=== PATIENT | male | born 1955 | race Caucasian/White ===

== ENCOUNTER 2019-02-02 10:52 | Inpatient (IN) | payer MEDICAID ==
[2019-02-02] VITALS (9 sets, daily range): BP systolic 145–162; BP diastolic 71–96; PULSE 54–65; RESP 14–18; Ht 182.9 cm; Wt 119.1 kg
[~2019-02-02] VITALS: Ht 182.9 cm; Wt 119.1 kg
[2019-02-02] MEDS ORDERED: LANT3I SC (12:35)
[2019-02-02] MEDS ORDERED: ASPI325T30 PO (12:35)
[2019-02-02] MEDS ORDERED: TAMS0.4C2 PO (12:35)
[2019-02-02] MEDS ORDERED: MTF1000T PO (12:35)
[2019-02-02] MEDS ORDERED: ATOR-2 PO (12:35)
[2019-02-02] MEDS ORDERED: GLIP10TA14 PO (12:35)
[2019-02-02] MEDS ORDERED: CARV6.2579 PO (12:35)
[2019-02-02] MEDS ORDERED: DULO60CA59 PO (12:35)
[2019-02-02] MEDS ORDERED: LISI40TA3 PO (12:35)
--- NOTE | 2019-02-02 13:05 | ERD ---
ER Documentation Chief Complaint Chief Complaint PRESSURE LIKE PAIN AT MID CHEST AREAS RADAITES TO THE BACK WITH SHARP PAIN HPI This is a 63-year-old male who presents for evaluation of chest pain. The patient has a history of hypertension hyperlipidemia he is a former tobacco user, he reports that he had a similar episode about 5 weeks ago. This occurred while lifting something, at that time the patient was told that he had a heart attack, involving the LAD. This was while he was in alf, at an outside hospital, is unclear how this was diagnosed. His discharge paperwork states STEMI involving LAD, however the patient reports that no procedures were performed, and he had recommended surgery versus a cardiac catheterization, but per the patient because he was in alf, he did not get admitted for these procedures. His chest pain improved, until today, he got out of alf a few days ago. He has not had a fever. ROS All systems reviewed and are negative except as per history of present illness. Medications Home Meds Reported Medications Insulin Glargine* (Lantus*) 100 Unit/Ml Soln, 12 UNIT SC QHS, #1 VIAL 02/02/19 Aspirin* (Aspirin*) 325 Mg Tablet, 325 MG PO DAILY, TAB 02/02/19 Duloxetine Hcl* (Duloxetine Hcl*) 60 Mg Capsule.dr, 60 MG PO DAILY, #30 CAP 02/02/19 Tamsulosin Hcl* (Tamsulosin Hcl*) 0.4 Mg Cap.er.24h, 0.4 MG PO HS, CAP 02/02/19 Atorvastatin* (Atorvastatin*) 80 Mg Tablet, 80 MG PO QHS, #30 TAB 02/02/19 Lisinopril* (Lisinopril*) 40 Mg Tablet, 40 MG PO DAILY, #30 TAB 02/02/19 Glipizide* (Glipizide*) 10 Mg Tablet, 10 MG PO DAILY, TAB 02/02/19 Carvedilol* (Carvedilol*) 6.25 Mg Tablet, 6.25 MG PO BID, #60 TAB 02/02/19 Metformin* (Glucophage*) 1,000 Mg Tablet, 1000 MG PO DAILY, #60 TAB 02/02/19 Allergies Allergies: Coded Allergies: codeine (Verified Allergy, Unknown, PANCREAS PAIN, 02/02/19) PMhx/Soc History of Surgery: Yes (GALLBLADDER SX,THROAT SX) Anesthesia Reaction: No Hx Neurological Disorder: No Hx Respiratory Disorders: No Hx Cardiac Disorders: Yes (HTN) Hx Psychiatric Problems: No Hx Miscellaneous Medical Probl: Yes (DM) Hx Alcohol Use: Yes Hx Substance Use: No Hx Tobacco Use: Yes Smoking Status: Former smoker Physical Exam Vitals Vital Signs Date Temp Pulse Resp B/P (MAP) Pulse Ox O2 O2 Flow FiO2 Time Delivery Rate 02/02/19 Nasal 2 11:39 Cannula 02/02/19 98.8 78 24 150/86 97 10:54 (107) Physical Exam Const: No acute distress Head: Atraumatic Eyes: Normal Conjunctiva ENT: Normal External Ears, Nose and Mouth. Neck: Full range of motion. No meningismus. Resp: Clear to auscultation bilaterally Cardio: Regular rate and rhythm, no murmurs Abd: Soft, non tender, non distended. Normal bowel sounds Skin: No petechiae or rashes Back: No midline or flank tenderness Ext: No cyanosis, or edema Neur: Awake and alert Psych: Normal Mood and Affect Result Diagram: 02/02/19 1137 02/02/19 1137 Results 24 hrs Laboratory Tests Test 02/02/19 11:37 White Blood Count 7.1 10^3/ul Red Blood Count 4.39 10^6/ul Hemoglobin 13.1 g/dl Hematocrit 38.9 % Mean Corpuscular Volume 88.6 fl Mean Corpuscular Hemoglobin 29.8 pg Mean Corpuscular Hemoglobin Concent 33.7 g/dl Red Cell Distribution Width 13.1 % Platelet Count 206 10^3/UL Mean Platelet Volume 9.1 fl Immature Granulocytes % 0.300 % Neutrophils % 43.9 % Lymphocytes % 39.2 % Monocytes % 11.8 % Eosinophils % 4.2 % Basophils % 0.6 % Nucleated Red Blood Cells % 0.0 /100WBC Immature Granulocytes # 0.020 10^3/ul Neutrophils # 3.1 10^3/ul Lymphocytes # 2.8 10^3/ul Monocytes # 0.8 10^3/ul Eosinophils # 0.3 10^3/ul Basophils # 0.0 10^3/ul Nucleated Red Blood Cells # 0.0 10^3/ul Sodium Level 142 mmol/L Potassium Level 4.0 mmol/L Chloride Level 104 mmol/L Carbon Dioxide Level 29 mmol/L Anion Gap 9 Blood Urea Nitrogen 22 mg/dl Creatinine 0.70 mg/dl Est Glomerular Filtrat Rate mL/min > 60 mL/min Glucose Level 109 mg/dl Calcium Level 9.6 mg/dl Total Bilirubin 0.3 mg/dl Direct Bilirubin 0.00 mg/dl Indirect Bilirubin 0.3 mg/dl Aspartate Amino Transf (AST/SGOT) 29 IU/L Alanine Aminotransferase (ALT/SGPT) 28 IU/L Alkaline Phosphatase 50 IU/L Troponin I < 0.012 ng/ml B-Type Natriuretic Peptide 218 PG/ML Total Protein 6.8 g/dl Albumin 3.9 g/dl Globulin 2.90 g/dl Albumin/Globulin Ratio 1.34 Current Medications Medications Dose Sig/Violet Start Time Status Last (Trade) Ordered Route PRN Stop Time Admin Dose Reason Admin Aspirin 325 mg ONCE ONCE 02/02/19 DC 02/02/19 (Aspirin) PO 13:30 13:31 02/02/19 13:31 Procedures/MDM This is a 63-year-old male who presents with chest pain. His history as noted above, is concerning for a prior NE, currently his pain is stable, and his EKG shows no evidence of acute ischemia. His chest x-ray was unremarkable, his first troponin was negative, and his labs are overall unremarkable, showing no leukocytosis, and no evidence of metabolic acidosis. Given his high risk, he will be admitted to medicine, for further evaluation under observation. Accepting Care Team: Current data and ongoing care discussed. Primary: Wilber Consulting: None Outstanding Data: none EKG: Rate/Rhythm: Normal Sinus Rhythm QRS, ST, T-waves: Q waves inferiorly. No changes consistent w/ acute ischemia Impression: No evidence of ischemia or arrhythmia Departure Diagnosis: Primary Impression: Chest pain Chest pain type: unspecified Qualified Codes: R07.9 - Chest pain, unspecified Condition: Stable VIKAS NIELSEN MD Feb 02, 2019 13:05
[2019-02-02] MEDS ORDERED: ASPIRIN 325 MG TAB PO ONE (13:30)
[2019-02-02] MEDS ORDERED: HYDROCODONE/APAP (5/325) TAB PO ONE (15:00)
--- NOTE | 2019-02-02 17:11 | RADRPT ---
Echocardiogram Report Patient Name: RANJANA NIETOPatient ID: [id number] : 1955 (63y 7m)Study Date: 02/02/2019 3:16:54 PM Gender: MAccession #: [id number] Tech: Floyd Sheehan BEATRIZ Location: [facility] Ref.Physician: JD LOZADA Height(Cm): BSA: Weight(Kg): Quality: AdequateAccount #: Procedures: Echocardiographic Report: Transthoracic echocardiogram with complete 2D, M-Mode, and doppler examination. Indications: STEMI. Measurements: 2D/M Mode Doppler Measurement Value Normal Range Measurement Value Normal Range LVIDd 2D 3.5 [ 4.2 - 5.8 ] cm AV Peak Spike 1.4 [ 100.0 - 170.0 ] cm/sec LVIDs 2D 2.8 [ 2.5 - 4.0 ] cm AV Peak PG 8.0 [ 2.0 - 9.0 ] mmHg LVPWd 2D 1.4 [ 0.6 - 1.0 ] cm LVOT Peak Spike 1.0 [ 70.0 - 110.0 ] cm/sec IVSd 2D 1.4 [ 0.6 - 1.0 ] cm LVOT Peak PG 4.0 [ 2.0 - 6.0 ] mmHg AoR Diam 2D 3.2 [ 2.6 - 3.4 ] cm MV E Peak Spike 0.9 [ 60.0 - 130.0 ] cm/sec EDV 2D 51.9 [ 62.0 - 150.0 ] ml MV A Peak Spike 0.7 [ 100.0 - 120.0 ] cm/sec ESV 2D 28.3 [ 21.0 - 61.0 ] ml MV E/A 1.2 [ 0.8 - 1.5 ] ratio EF 2D 45.5 [ 52.0 - 72.0 ] percent MV Decel Time 264 [ 104 - 258 ] msec LA Dimen 2D 3.5 [ 3.0 - 4.0 ] cm Lat E` Spike 0.1 [ 10.0 - 15.0 ] cm/sec LVOT Diam 2.5 [ 2.3 - 2.9 ] cm Lateral E/E` 10.4 [ 1.0 - 2.0 ] ratio MV E/A 1.2 [ 0.8 - 1.5 ] ratio TR Peak Spike 2.0 [ 100.0 - 280.0 ] cm/sec TR Peak PG 16.0 mmHg RVSP 19.0 [ 10.0 - 36.0 ] mmHg RA Pressure 3.0 mmHg Findings: Left Ventricle: Normal left ventricular systolic function. Normal left ventricular cavity size. Mild concentric left ventricular hypertrophy. Ejection fraction is visually estimated at 55-60 %. Tissue Doppler/Mitral Doppler indices are consistent with pseudonormalization with mildly elevated left atrial pressure (Stage II diastolic dysfunction). Right Ventricle: Normal right ventricular size. Normal right ventricular systolic function. Left Atrium: The left atrium is normal in size. Right Atrium: The right atrium is normal in size. Mitral Valve: Normal appearance and function of the mitral valve with trace physiologic regurgitation. Aortic Valve: No significant aortic stenosis or insufficiency. Aortic cusps appear mildly calcified. Tricuspid Valve: Normal appearance of the tricuspid valve. Estimated peak PA systolic pressure 19 mmHg. There is trace tricuspid regurgitation. Pulmonic Valve: Normal pulmonic valve appearance. Pericardium: Normal pericardium with no significant pericardial effusion. Aorta: Normal aortic root. IVC: Normal size and normal respiratory collapse consistent with normal right atrial pressure. Conclusions: Normal left ventricular systolic function. Normal left ventricular cavity size. Mild concentric left ventricular hypertrophy. Ejection fraction is visually estimated at 55-60 %. Tissue Doppler/Mitral Doppler indices are consistent with pseudonormalization with mildly elevated left atrial pressure (Stage II diastolic dysfunction). Normal right ventricular size. Normal right ventricular systolic function. The left atrium is normal in size. The right atrium is normal in size. No significant valvular stenosis or regurgitation seen. Normal pericardium with no significant pericardial effusion. Electronically Signed By: Jd Lozada 2019-02-02 17:11:13 PDT
--- NOTE | 2019-02-02 17:19 | CONS ---
Assessment/Plan Assessment/Plan Hospital Course (Demo Recall) Chest pain CAD based on history Diabetes Hypertension Dyslipidemia Preserved ejection fraction -Patient with exertional chest pain for the past month. He was recently incarcerated and was admitted to the hospital and told me imaging that he had an occlusion in his LAD. He was recommended for outpatient angiogram -Serial cardiac enzymes negative, echocardiogram with preserved ejection frac tion -Will plan for coronary angiogram Consultation Date/Type/Reason Admit Date/Time Type of Consult Cardiology Reason for Consultation Chest pain Date/Time of Note DATE: 02/02/19 TIME: 17:13 Hx of Present Illness This is a 63-year-old male with past medical history of hypertension, diabetes who presents because of exertional chest pain. Symptoms are worse with exertion associate with shortness of breath and improved at rest. Denies any dizziness or lightheadedness. Patient was recently incarcerated and at that time was having exertional chest pain. He tells me he did go to a hospital and did have a workup including CT scan as well as stress test. He was told there was an occlusion in 1 of his heart arteries and recommendations were when he is discharged for angiogram. 12 point review of systems was performed with all pertinent positives and negatives mentioned above and all else is negative Past Medical History Medical History: diabetes, high cholesterol, hypertension Home Meds Reported Medications Insulin Glargine* (Lantus*) 100 Unit/Ml Soln, 12 UNIT SC QHS, #1 VIAL 02/02/19 Aspirin* (Aspirin*) 325 Mg Tablet, 325 MG PO DAILY, TAB 02/02/19 Duloxetine Hcl* (Duloxetine Hcl*) 60 Mg Capsule.dr, 60 MG PO DAILY, #30 CAP 02/02/19 Tamsulosin Hcl* (Tamsulosin Hcl*) 0.4 Mg Cap.er.24h, 0.4 MG PO HS, CAP 02/02/19 Atorvastatin* (Atorvastatin*) 80 Mg Tablet, 80 MG PO QHS, #30 TAB 02/02/19 Lisinopril* (Lisinopril*) 40 Mg Tablet, 40 MG PO DAILY, #30 TAB 02/02/19 Glipizide* (Glipizide*) 10 Mg Tablet, 10 MG PO DAILY, TAB 02/02/19 Carvedilol* (Carvedilol*) 6.25 Mg Tablet, 6.25 MG PO BID, #60 TAB 02/02/19 Metformin* (Glucophage*) 1,000 Mg Tablet, 1000 MG PO DAILY, #60 TAB 02/02/19 Allergies: Coded Allergies: codeine (Verified Allergy, Unknown, PANCREAS PAIN, 02/02/19) Family History Significant Family History: no pertinent family hx Social History Alcohol Use: rarely Smoking Status: Former smoker Exam/Review of Systems Vital Signs Vitals Vital Signs Date Temp Pulse Resp B/P (MAP) Pulse Ox O2 O2 Flow FiO2 Time Delivery Rate 02/02/19 97.6 54 18 145/76 Room Air 15:40 (99) 02/02/19 98 2.0 14:29 Exam Constitutional: alert, oriented (No apparent distress) Head: normocephalic Respiratory: clear to auscultation, normal air movement Cardiovascular: regular rate and rhythm (S1-S2 heard) Gastrointestinal: soft, non-tender, bowel sounds Extremities: other (No significant edema) Labs Result Diagram: 02/02/19 1137 02/02/19 1137 Results 24hrs Laboratory Tests Test 02/02/19 11:37 02/02/19 13:43 White Blood Count 7.1 Red Blood Count 4.39 L Hemoglobin 13.1 L Hematocrit 38.9 L Mean Corpuscular Volume 88.6 Mean Corpuscular Hemoglobin 29.8 Mean Corpuscular Hemoglobin Concent 33.7 Red Cell Distribution Width 13.1 Platelet Count 206 Mean Platelet Volume 9.1 Immature Granulocytes % 0.300 Neutrophils % 43.9 Lymphocytes % 39.2 Monocytes % 11.8 H Eosinophils % 4.2 Basophils % 0.6 Nucleated Red Blood Cells % 0.0 Immature Granulocytes # 0.020 Neutrophils # 3.1 Lymphocytes # 2.8 Monocytes # 0.8 Eosinophils # 0.3 Basophils # 0.0 Nucleated Red Blood Cells # 0.0 Sodium Level 142 Potassium Level 4.0 Chloride Level 104 Carbon Dioxide Level 29 Anion Gap 9 Blood Urea Nitrogen 22 H Creatinine 0.70 Est Glomerular Filtrat Rate mL/min > 60 Glucose Level 109 Calcium Level 9.6 Total Bilirubin 0.3 Direct Bilirubin 0.00 Indirect Bilirubin 0.3 Aspartate Amino Transf (AST/SGOT) 29 Alanine Aminotransferase (ALT/SGPT) 28 Alkaline Phosphatase 50 Troponin I < 0.012 < 0.012 B-Type Natriuretic Peptide 218 H Total Protein 6.8 Albumin 3.9 Globulin 2.90 Albumin/Globulin Ratio 1.34 Imaging Imaging ECG with sinus rhythm, right bundle branch block with QRS 146 ms, nonspecific ST abnormalities Jd Santos DO Feb 02, 2019 17:19
[2019-02-02] MEDS ORDERED: LIDOCAINE 1% (MDV) 20 ML INJ ONE (17:44)
[2019-02-02] MEDS ORDERED: IODIXANOL LOCM 100 ML BTL ONE (17:44)
[2019-02-02] MEDS ORDERED: HEPARIN 1000 UNITS/ML 10 ML INJ ONE (17:44)
[2019-02-02] MEDS ORDERED: MIDAZOLAM 1 MG/ML 2 ML INJ ONE (17:45)
[2019-02-02] MEDS ORDERED: NITROGLYCERIN (IC) 100 MCG/ML INJ ONE (17:45)
[2019-02-02] MEDS ORDERED: FENTAnyl 50 MCG/ML VIAL ONE (17:45)
[2019-02-02] MEDS ORDERED: VERAPAMIL 5 MG INJ ONE (17:45)
--- NOTE | 2019-02-02 17:46 | HP ---
Date/Time of Note Date/Time of Note DATE: 02/02/19 TIME: 17:45 Assessment/Plan VTE Prophylaxis Pharmacological prophylaxis: heparin Lines/Catheters IV [facility] Saline Lock Assessment/Plan Hospital Course 63 yo M admitted and managed as follows : Chest pain CAD based on history Diabetes Hypertension Dyslipidemia Plan: Appreciate cardiology's prompt review, patient is to get angiogram In the interim, complete ACS rule out, follow-up 2D echo, use only insulin while in-house, once cleared for diet start 1800-calorie diet Provided orders supportive care, see chart for details, further interventions per course. Result Diagram: 02/02/19 1137 02/02/19 1137 Results 24hrs Laboratory Tests Test 02/02/19 11:37 02/02/19 13:43 White Blood Count 7.1 Red Blood Count 4.39 L Hemoglobin 13.1 L Hematocrit 38.9 L Mean Corpuscular Volume 88.6 Mean Corpuscular Hemoglobin 29.8 Mean Corpuscular Hemoglobin Concent 33.7 Red Cell Distribution Width 13.1 Platelet Count 206 Mean Platelet Volume 9.1 Immature Granulocytes % 0.300 Neutrophils % 43.9 Lymphocytes % 39.2 Monocytes % 11.8 H Eosinophils % 4.2 Basophils % 0.6 Nucleated Red Blood Cells % 0.0 Immature Granulocytes # 0.020 Neutrophils # 3.1 Lymphocytes # 2.8 Monocytes # 0.8 Eosinophils # 0.3 Basophils # 0.0 Nucleated Red Blood Cells # 0.0 Sodium Level 142 Potassium Level 4.0 Chloride Level 104 Carbon Dioxide Level 29 Anion Gap 9 Blood Urea Nitrogen 22 H Creatinine 0.70 Est Glomerular Filtrat Rate mL/min > 60 Glucose Level 109 Calcium Level 9.6 Total Bilirubin 0.3 Direct Bilirubin 0.00 Indirect Bilirubin 0.3 Aspartate Amino Transf (AST/SGOT) 29 Alanine Aminotransferase (ALT/SGPT) 28 Alkaline Phosphatase 50 Troponin I < 0.012 < 0.012 B-Type Natriuretic Peptide 218 H Total Protein 6.8 Albumin 3.9 Globulin 2.90 Albumin/Globulin Ratio 1.34 HPI/ROS Admit Date/Time Admit Date/Time Hx of Present Illness 63-year-old male who presented to the emergency room with chest pain with a past medical history of coronary artery disease and has been told in the past that he needs an angiogram while incarcerated. But this was never done. He does have discharge paperwork confirming ST elevation myocardial infarction with LAD. This onset of chest pain has been on and off for the last 5 days and was as sociated with exertion. He has been seen by the client technical specialist who is planning him for coronary angiogram. Is being admitted based on this. Past medical history: Hypertension, diabetes type 2, dyslipidemia, coronary artery disease, urinary obstructive symptoms, depression Surgical history: Gallbladder surgery, throat surgery Allergy codeine Social history: tobacco use, occasional alcohol drinker, denies illicit drug use, uses marijuana occasionally ROS 12 point review if systems was done and pertinent findings are as noted. PMH/Family/Social Past Medical History Medications Current Medications Aspirin (Aspirin) 81 mg DAILY PO ; Start 02/03/19 at 09:00; Status UNV Atorvastatin Calcium (Lipitor) 40 mg HS PO ; Start 02/02/19 at 21:00; Status UNV Insulin Aspart (Novolog Insulin Pen) NOVOLOG *MILD* ALGORITHM WITH MEALS BEDTIME SC ; Start 02/02/19 at 18:00; Status UNV Miscellaneous Information (* Miscellaneous Pharmacy Order) Discontinue all previ... ONCE ONCE XX ; Start 02/02/19 at 17:30; Stop 02/02/19 at 17:31; Status UNV Coded Allergies: codeine (Unverified Allergy, Intermediate, 02/08/19) Family History Significant Family History: no pertinent family hx Social History Alcohol Use: rarely Smoking Status: Former smoker Exam/Review of Systems Vital Signs Vitals Vital Signs Date Temp Pulse Resp B/P (MAP) Pulse Ox O2 O2 Flow FiO2 Time Delivery Rate 02/02/19 97.6 54 18 145/76 Room Air 15:40 (99) 02/02/19 98 2.0 14:29 Exam Exam General: A&O x3, answering questions appropriately HEENT: NC/ AT. PERRL. EOM intact Neck: supple CVS: S1, S2, RRR. no murmurs. no pain on chest wall palpation Lungs: CTA b/l. no wheezing or rhonchi Abd: soft, nontender, +BS Ext: moving all extremities skin: no rashes DOMITILA KIRBY Feb 02, 2019 17:46
[2019-02-02] MEDS ORDERED: SOD CHLORIDE 0.9% 1,000 ML IV SCH (18:33)
--- NOTE | 2019-02-02 18:42 | OPR ---
Date/Time of Note Date/Time of Note DATE: 02/02/19 TIME: 18:35 Operative Report Procedure Date: Feb 02, 2019 Preoperative Diagnosis Chest pain Postoperative Diagnosis Obstructive coronary artery disease Operation/Procedure Performed Left heart catheterization Right and left coronary angiogram Interpretation and supervision of right and left coronary angiogram Left ventricular pressure measurements Conscious sedation Right radial artery approach Surgeon see signature line Dry Starch Operator Miscellaneous Machine Operator staff Anesthesia Type: MAC Estimated Blood Loss: minimal Transfusion none Specimen None Grafts/Implants none Complications none Pt Condition Post Procedure: stable Procedure Description Findings Hemodynamics LV pressure 160/1 with EDP of 20 Aortic pressure 156/75 Coronary findings Left main is a large caliber vessel with no significant disease LAD is a medium caliber vessel with a proximal to mid calcified long 80% stenosis including the second diagonal which is a medium caliber, then there is a mid to distal 80% focal stenosis in the LAD Circumflex is a medium caliber vessel and codominant, there is a mid 30% stenosis, OM1 is a small to medium caliber vessel with a proximal to mid 80% stenosis, OM 2 which is a medium caliber vessel with a proximal 70% stenosis. RCA is a medium caliber vessel and codominant, there is a proximal 40% stenosis, a mid 50% stenosis, then proximal to mid PDA, which is a medium caliber vessel, with 80% diffuse stenosis. PLB is a small to medium caliber vessel with proximal 70% stenosis and mid 80% stenosis Description of procedure Patient brought to the Miscellaneous Machine Operator after informed consent. Patient prepped and draped as per protocol. Right radial artery access was obtained. A 5/6 Green[place]ic sheath was placed. A 5 Green[place]ic [place] catheter was used to engage the left main and RCA and angiograms were performed. We next went into the left ventricle and pressure measurements were obtained as well as pullback. All catheters and wires removed. There was no immediate complications. Recommendations/conclusion Patient with severe triple-vessel coronary artery disease, will need CABG evaluation Jd Santos DO Feb 02, 2019 18:42
[2019-02-02] MEDS: INSULIN ASPART [NOVOLOG] 3 ML PEN SC SCH ×2 (19:19→21:43)
[2019-02-02] MEDS ORDERED: GLUCAGON 1 MG INJ IM PRN (19:30)
[2019-02-02] MEDS ORDERED: DEXTROSE 50% 50 ML SYRINGE IV PRN ×2 (19:30)
[2019-02-02] MEDS ORDERED: GLUCOSE GEL 15 GRAM TUBE PO PRN ×2 (19:30)
[2019-02-02] MEDS ORDERED: GLUCOSE GEL 15 GRAM TUBE BUCCAL PRN (19:30)
[2019-02-02] MEDS: ISOSORBIDE DINITRATE 5 MG TAB PO SCH (21:00)
[2019-02-02] MEDS: ATORVASTATIN 80 MG TAB PO SCH (21:00)
[2019-02-02] MEDS: METOPROLOL 25 MG TAB PO SCH (21:00)
[2019-02-02] MEDS: TAMSULOSIN (SR) 0.4 MG CAP PO SCH (21:00)
[2019-02-02] MEDS ORDERED: ATORVASTATIN 40 MG TAB PO SCH (21:00)
[2019-02-02] MEDS: INSULIN GLARGINE [LANTus] (100 UNITS/ML) SYG SC SCH (21:43)
[2019-02-03] VITALS (11 sets, daily range): BP systolic 152–168; BP diastolic 72–81; PULSE 47–75; RESP 16–18
[2019-02-03] MEDS: NITROGLYCERIN (SL) 0.4 MG TAB SL PRN ×4 (04:28→07:45)
[2019-02-03] MEDS: morphine 2 MG INJ IV PRN ×2 (05:01→07:51)
[2019-02-03] MEDS: INSULIN ASPART [NOVOLOG] 3 ML PEN SC SCH ×4 (07:53→20:52)
[2019-02-03] MEDS ORDERED: NITROGLYCERIN 50 MG/D5W (PMX) 250 ML IV SCH (08:00)
[2019-02-03] MEDS ORDERED: KETOROLAC 15 MG INJ IV STA (08:21)
[2019-02-03] MEDS: DULOXETINE 30 MG CAP DR PO SCH (09:17)
[2019-02-03] MEDS: ISOSORBIDE DINITRATE 5 MG TAB PO SCH ×3 (09:17→20:55)
[2019-02-03] MEDS: ASPIRIN 81 MG TAB PO SCH (09:18)
[2019-02-03] MEDS: METOPROLOL 25 MG TAB PO SCH (12:10)
--- NOTE | 2019-02-03 14:58 | PN ---
Date/Time of Note Date/Time of Note DATE: 02/03/19 TIME: 14:48 Assessment/Plan VTE Prophylaxis Risk score (from Nsg)>0 risk: 3 SCD applied (from Ns): Yes Pharmacological prophylaxis: heparin Lines/Catheters IV Catheter Type (from Nrsg): [place] Assessment/Plan Assessment/Plan 1. CAD, 3v disease, s/p LHC on 02/03/2019, on aspirin, lipitor, coreg, imdur, planned for CABG for Thursday 2. Diabetes mellitus, on insulin, hold metformin 3. Hypertension, add lisinopril, continue coreg, stop metoprolol 4. Dyslipidemia, on lipitor 5. BPH, on flomax Result Diagram: 02/03/19 0756 02/03/19 0756 Results 24hrs Laboratory Tests Test 02/02/19 19:08 02/02/19 21:37 02/03/19 04:27 02/03/19 07:53 Bedside Glucose 93 187 144 131 Test 02/03/19 07:56 02/03/19 08:50 02/03/19 11:58 02/03/19 12:10 White Blood Count 7.0 Red Blood Count 3.99 L Hemoglobin 12.0 L Hematocrit 35.4 L Mean Corpuscular 88.7 Volume Mean Corpuscular 30.1 Hemoglobin Mean Corpuscular 33.9 Hemoglobin Concent Red Cell 13.2 Distribution Width Platelet Count 189 Mean Platelet Volume 9.5 Immature 0.100 Granulocytes % Neutrophils % 54.7 Lymphocytes % 33.7 Monocytes % 8.0 Eosinophils % 3.1 Basophils % 0.4 Nucleated Red Blood 0.0 Cells % Immature 0.010 Granulocytes # Neutrophils # 3.8 Lymphocytes # 2.4 Monocytes # 0.6 Eosinophils # 0.2 Basophils # 0.0 Nucleated Red Blood 0.0 Cells # Sodium Level 139 Potassium Level 3.9 Chloride Level 107 Carbon Dioxide Level 27 Anion Gap 5 Blood Urea Nitrogen 18 Creatinine 0.64 Est Glomerular > 60 Filtrat Rate mL/min Glucose Level 133 Calcium Level 9.2 Phosphorus Level 3.3 Magnesium Level 1.7 Total Bilirubin 0.3 Direct Bilirubin 0.00 Indirect Bilirubin 0.3 Aspartate Amino 27 Transf (AST/SGOT) Alanine 33 Aminotransferase (AL T/SGPT) Alkaline Phosphatase 50 Troponin I < 0.012 < 0.012 Total Protein 6.0 L Albumin 3.4 Globulin 2.60 Albumin/Globulin 1.30 Ratio Triglycerides Level 139 Cholesterol Level 143 LDL Cholesterol, 78 Calculated HDL Cholesterol 37 Cholesterol/HDL 3.8 Ratio Thyroid Stimulating 4.950 H Hormone (TSH) D-Dimer 418.56 D-Dimer Comment Bedside Glucose 205 Subjective 24 Hr Interval Summary Free Text/Dictation no chest pain or shortness of breath now Exam/Review of Systems Exam Vitals Vital Signs Date Temp Pulse Resp B/P (MAP) Pulse Ox O2 O2 Flow FiO2 Time Delivery Rate 02/03/19 55 13:42 02/03/19 97.5 16 155/75 97 Nasal 3.0 11:52 (101) Cannula Intake and Output 02/02/19 02/02/19 02/03/19 1515:00 23:00 07:00 IntakeIntake Total 250 ml 550 ml OutputOutput Total 600 ml BalanceBalance 250 ml -50 ml Constitutional: alert, oriented, well developed, obese Head: normocephalic, atraumatic Eyes: nl conjunctiva, EOMI, nl lids, PERRL ENMT: nl external ears & nose, nl lips & teeth, nl nasal mucosa & septum Neck: supple, non-tender Respiratory: clear to auscultation, normal air movement; No congested cough, No crackles/rales, No diminished breath sounds, No intercostal retraction, No labored breathing, No respirations, No tactile fremitus, No wheezing, No other Cardiovascular: regular rate and rhythm, nl pulses; No bruits, No diastolic murmur, No edema, No gallop, No irregular rhythm, No jugular venous distention (JVD), No murmurs/extra sounds, No rub, No systolic murmur, No S3, No S4, No other Gastrointestinal: soft, nl liver, spleen, non-tender Musculoskeletal: nl extremities to inspection Extremities: normal pulses; No calf tenderness, No cyanosis, No clubbing, No edema, No pitting pedal edema, No palpable cord, No tenderness, No other Neurological: PROOF TESTER II-XII intact, nl mental status, nl speech, nl strength Results Results 24hrs Laboratory Tests Test 02/02/19 19:08 02/02/19 21:37 02/03/19 04:27 02/03/19 07:53 Bedside Glucose 93 187 144 131 Test 02/03/19 07:56 02/03/19 08:50 02/03/19 11:58 02/03/19 12:10 White Blood Count 7.0 Red Blood Count 3.99 L Hemoglobin 12.0 L Hematocrit 35.4 L Mean Corpuscular 88.7 Volume Mean Corpuscular 30.1 Hemoglobin Mean Corpuscular 33.9 Hemoglobin Concent Red Cell 13.2 Distribution Width Platelet Count 189 Mean Platelet Volume 9.5 Immature 0.100 Granulocytes % Neutrophils % 54.7 Lymphocytes % 33.7 Monocytes % 8.0 Eosinophils % 3.1 Basophils % 0.4 Nucleated Red Blood 0.0 Cells % Immature 0.010 Granulocytes # Neutrophils # 3.8 Lymphocytes # 2.4 Monocytes # 0.6 Eosinophils # 0.2 Basophils # 0.0 Nucleated Red Blood 0.0 Cells # Sodium Level 139 Potassium Level 3.9 Chloride Level 107 Carbon Dioxide Level 27 Anion Gap 5 Blood Urea Nitrogen 18 Creatinine 0.64 Est Glomerular > 60 Filtrat Rate mL/min Glucose Level 133 Calcium Level 9.2 Phosphorus Level 3.3 Magnesium Level 1.7 Total Bilirubin 0.3 Direct Bilirubin 0.00 Indirect Bilirubin 0.3 Aspartate Amino 27 Transf (AST/SGOT) Alanine 33 Aminotransferase (AL T/SGPT) Alkaline Phosphatase 50 Troponin I < 0.012 < 0.012 Total Protein 6.0 L Albumin 3.4 Globulin 2.60 Albumin/Globulin 1.30 Ratio Triglycerides Level 139 Cholesterol Level 143 LDL Cholesterol, 78 Calculated HDL Cholesterol 37 Cholesterol/HDL 3.8 Ratio Thyroid Stimulating 4.950 H Hormone (TSH) D-Dimer 418.56 D-Dimer Comment Bedside Glucose 205 Medications Medication Current Medications Aspirin (Aspirin) 81 mg DAILY PO Last administered on 02/03/19at 09:18; Admin Dose 81 MG; Start 02/03/19 at 09:00 Insulin Aspart (Novolog Insulin Pen) NOVOLOG *MILD* ALGORITHM WITH MEALS BEDTIME SC Last administered on 02/03/19at 12:29; Admin Dose 2 UNIT; Start 02/02/19 at 18:00 Atorvastatin Calcium (Lipitor) 80 mg QHS PO ; Start 02/02/19 at 21:00 Carvedilol (Coreg) 6.25 mg BID PO Last administered on 02/03/19at 09:18; Admin Dose 6.25 MG; Start 02/02/19 at 21:00 Duloxetine HCl (Cymbalta) 60 mg DAILY PO Last administered on 02/03/19at 09:17; Admin Dose 60 MG; Start 02/03/19 at 09:00 Insulin Glargine (Lantus) 12 units QHS SC Last administered on 02/02/19at 21:43; Admin Dose 12 UNITS; Start 02/02/19 at 21:00 Tamsulosin HCl (Flomax) 0.4 mg HS PO Last administered on 02/02/19at 21:00; Admin Dose 0.4 MG; Start 02/02/19 at 21:00 Metoprolol Tartrate (Lopressor) 12.5 mg BID PO ; Start 02/02/19 at 21:00 Isosorbide Dinitrate (Isordil) 5 mg TID PO Last administered on 02/03/19at 13:11; Admin Dose 5 MG; Start 02/02/19 at 21:00 Miscellaneous Information 1 ea NOTE XX ; Start 02/02/19 at 19:30 Glucose (Glutose) 15 gm Q15M PRN PO DECREASED GLUCOSE; Start 02/02/19 at 19:30 Glucose (Glutose) 22.5 gm Q15M PRN PO DECREASED GLUCOSE; Start 02/02/19 at 19:30 Dextrose (D50w Syringe) 25 ml Q15M PRN IV DECREASED GLUCOSE; Start 02/02/19 at 19:30 Dextrose (D50w Syringe) 50 ml Q15M PRN IV DECREASED GLUCOSE; Start 02/02/19 at 19:30 Glucagon (Glucagen) 1 mg Q15M PRN IM DECREASED GLUCOSE; Start 02/02/19 at 19:30 Glucose (Glutose) 15 gm Q15M PRN BUCCAL DECREASED GLUCOSE; Start 02/02/19 at 19:30 Nitroglycerin (Nitroglycerin (Sl Tab) 0.4 Mg) 1 tab Q5M PRN SL ANGINA Last administered on 02/03/19at 07:45; Admin Dose 1 TAB; Start 02/03/19 at 04:30 Morphine Sulfate (morphine) 1 mg Q2H PRN IV SEVERE PAIN LEVEL 7-10 Last administered on 02/03/19at 07:51; Admin Dose 1 MG; Start 02/03/19 at 04:30 ADRIEL BAILON MD Feb 03, 2019 14:58
[2019-02-03] MEDS: LISINOPRIL 20 MG TAB PO SCH (16:04)
--- NOTE | 2019-02-03 16:15 | CONS ---
Assessment/Plan Assessment/Plan Hospital Course (Demo Recall) Three-vessel coronary artery disease left heart catheterization 02/02/2019 Diabetes Hypertension Dyslipidemia Preserved ejection fraction -Patient with three-vessel coronary artery disease. Awaiting surgical evaluation -Patient with chest discomfort lessened this morning, with sharp in nature and with deep inspiration. Troponins negative, ECG this morning with no significant ischemic abnormalities, d-dimer negative. -Continue aspirin and statin therapy, beta-blockers heart rate and blood pressure permits, Isordil Consultation Date/Type/Reason Admit Date/Time Feb 02, 2019 at 16:08 Initial Consult Date Type of Consult Cardiology Date/Time of Note DATE: 02/03/19 TIME: 16:12 24 HR Interval Summary Free Text/Dictation Complaining of sharp chest discomfort at times with deep inspiration. Denies chest pressure, shortness of breath Exam/Review of Systems Vital Signs Vitals Vital Signs Date Temp Pulse Resp B/P (MAP) Pulse Ox O2 O2 Flow FiO2 Time Delivery Rate 02/03/19 56 16:08 02/03/19 97.7 18 164/78 98 Nasal 3.0 15:50 (106) Cannula Intake and Output 02/02/19 02/02/19 02/03/19 1515:00 23:00 07:00 IntakeIntake Total 250 ml 550 ml OutputOutput Total 600 ml BalanceBalance 250 ml -50 ml Exam Constitutional: alert, oriented (No apparent distress) Head: normocephalic Respiratory: clear to auscultation, normal air movement Cardiovascular: regular rate and rhythm (S1-S2 heard) Gastrointestinal: soft, non-tender, bowel sounds Extremities: other (No edema) Labs Result Diagram: 02/03/19 0756 02/03/19 0756 Results 24hrs Laboratory Tests Test 02/02/19 19:08 02/02/19 21:37 02/03/19 04:27 02/03/19 07:53 Bedside Glucose 93 187 144 131 Test 02/03/19 07:56 02/03/19 08:50 02/03/19 11:58 02/03/19 12:10 White Blood Count 7.0 Red Blood Count 3.99 L Hemoglobin 12.0 L Hematocrit 35.4 L Mean Corpuscular 88.7 Volume Mean Corpuscular 30.1 Hemoglobin Mean Corpuscular 33.9 Hemoglobin Concent Red Cell 13.2 Distribution Width Platelet Count 189 Mean Platelet Volume 9.5 Immature 0.100 Granulocytes % Neutrophils % 54.7 Lymphocytes % 33.7 Monocytes % 8.0 Eosinophils % 3.1 Basophils % 0.4 Nucleated Red Blood 0.0 Cells % Immature 0.010 Granulocytes # Neutrophils # 3.8 Lymphocytes # 2.4 Monocytes # 0.6 Eosinophils # 0.2 Basophils # 0.0 Nucleated Red Blood 0.0 Cells # Sodium Level 139 Potassium Level 3.9 Chloride Level 107 Carbon Dioxide Level 27 Anion Gap 5 Blood Urea Nitrogen 18 Creatinine 0.64 Est Glomerular > 60 Filtrat Rate mL/min Glucose Level 133 Calcium Level 9.2 Phosphorus Level 3.3 Magnesium Level 1.7 Total Bilirubin 0.3 Direct Bilirubin 0.00 Indirect Bilirubin 0.3 Aspartate Amino 27 Transf (AST/SGOT) Alanine 33 Aminotransferase (AL T/SGPT) Alkaline Phosphatase 50 Troponin I < 0.012 < 0.012 Total Protein 6.0 L Albumin 3.4 Globulin 2.60 Albumin/Globulin 1.30 Ratio Triglycerides Level 139 Cholesterol Level 143 LDL Cholesterol, 78 Calculated HDL Cholesterol 37 Cholesterol/HDL 3.8 Ratio Thyroid Stimulating 4.950 H Hormone (TSH) D-Dimer 418.56 D-Dimer Comment Bedside Glucose 205 Medications Medications Current Medications Aspirin (Aspirin) 81 mg DAILY PO Last administered on 02/03/19at 09:18; Admin Dose 81 MG; Start 02/03/19 at 09:00 Insulin Aspart (Novolog Insulin Pen) NOVOLOG *MILD* ALGORITHM WITH MEALS BEDTIME SC Last administered on 02/03/19at 12:29; Admin Dose 2 UNIT; Start 02/02/19 at 18:00 Atorvastatin Calcium (Lipitor) 80 mg QHS PO ; Start 02/02/19 at 21:00 Carvedilol (Coreg) 6.25 mg BID PO Last administered on 02/03/19at 09:18; Admin Dose 6.25 MG; Start 02/02/19 at 21:00 Duloxetine HCl (Cymbalta) 60 mg DAILY PO Last administered on 02/03/19at 09:17; Admin Dose 60 MG; Start 02/03/19 at 09:00 Insulin Glargine (Lantus) 12 units QHS SC Last administered on 02/02/19at 21:43; Admin Dose 12 UNITS; Start 02/02/19 at 21:00 Tamsulosin HCl (Flomax) 0.4 mg HS PO Last administered on 02/02/19at 21:00; Admin Dose 0.4 MG; Start 02/02/19 at 21:00 Miscellaneous Information 1 ea NOTE XX ; Start 02/02/19 at 19:30 Glucose (Glutose) 15 gm Q15M PRN PO DECREASED GLUCOSE; Start 02/02/19 at 19:30 Glucose (Glutose) 22.5 gm Q15M PRN PO DECREASED GLUCOSE; Start 02/02/19 at 19:30 Dextrose (D50w Syringe) 25 ml Q15M PRN IV DECREASED GLUCOSE; Start 02/02/19 at 19:30 Dextrose (D50w Syringe) 50 ml Q15M PRN IV DECREASED GLUCOSE; Start 02/02/19 at 19:30 Glucagon (Glucagen) 1 mg Q15M PRN IM DECREASED GLUCOSE; Start 02/02/19 at 19:30 Glucose (Glutose) 15 gm Q15M PRN BUCCAL DECREASED GLUCOSE; Start 02/02/19 at 19:30 Nitroglycerin (Nitroglycerin (Sl Tab) 0.4 Mg) 1 tab Q5M PRN SL ANGINA Last administered on 02/03/19at 07:45; Admin Dose 1 TAB; Start 02/03/19 at 04:30 Morphine Sulfate (morphine) 1 mg Q2H PRN IV SEVERE PAIN LEVEL 7-10 Last administered on 02/03/19at 07:51; Admin Dose 1 MG; Start 02/03/19 at 04:30 Isosorbide Dinitrate (Isordil) 10 mg TID PO ; Start 02/03/19 at 21:00 Lisinopril (Zestril) 20 mg DAILY PO Last administered on 02/03/19at 16:04; Admin Dose 20 MG; Start 02/03/19 at 15:00 Heparin Sodium (Porcine) (Heparin (5000 Units/1ml)) 5,000 unit BID SC ; Start 02/03/19 at 21:00 Jd Santos DO Feb 03, 2019 16:15
[2019-02-03] MEDS ORDERED: MAGNESIUM SULFATE 2 GM/50 ML 50 ML IVPB ONE (16:30)
--- NOTE | 2019-02-03 19:01 | RADRPT ---
Vent Rate: 53 bpm RR Interval: 1132 msec IA Interval: 182 msec QRS Duration: 148 msec QT Interval: 461 msec QTC Interval: 433 msec P-R-T [place]: 45 - 69 - 49 degrees Sinus rhythm...normal P axis, V-rate 50- 99 Right bundle branch block...QRSd>120, terminal axis(90,270) Electronically Signed By: Srinivasa Curiel
[2019-02-03] MEDS: ATORVASTATIN 80 MG TAB PO SCH (20:54)
[2019-02-03] MEDS: TAMSULOSIN (SR) 0.4 MG CAP PO SCH (20:55)
[2019-02-03] MEDS: HEPARIN 5,000 UNIT/1 ML VIAL SC SCH (20:56)
[2019-02-03] MEDS: INSULIN GLARGINE [LANTus] (100 UNITS/ML) SYG SC SCH (21:17)
[2019-02-03] MEDS: ACETAMINOPHEN 325 MG TAB PO PRN (21:54)
[2019-02-04] VITALS (14 sets, daily range): BP systolic 128–186; BP diastolic 66–93; PULSE 44–69; RESP 16–20
[2019-02-04] MEDS: INSULIN ASPART [NOVOLOG] 3 ML PEN SC SCH ×4 (07:55→22:37)
--- NOTE | 2019-02-04 08:03 | CONS ---
Assessment/Plan Assessment/Plan Assessment/Plan (Daily) Three-vessel coronary artery disease left heart catheterization 02/02/2019 Diabetes Hypertension Dyslipidemia Preserved ejection fraction -Patient with three-vessel coronary artery disease. Awaiting surgical evaluation -no cardiac symptoms overnigh -Continue aspirin and statin therapy, beta-blockers heart rate and blood pressure permits, Isordil -probable CABG Consultation Date/Type/Reason Admit Date/Time Feb 03, 2019 at 18:10 Initial Consult Date Type of Consult Cardiology Date/Time of Note DATE: 02/04/19 TIME: 08:02 24 HR Interval Summary Free Text/Dictation The patient with no complaints Exam/Review of Systems Vital Signs Vitals Vital Signs Date Temp Pulse Resp B/P (MAP) Pulse Ox O2 O2 Flow FiO2 Time Delivery Rate 02/04/19 97.7 54 18 169/93 98 Room Air 07:22 (118) 02/03/19 3.0 15:50 Intake and Output 02/03/19 02/03/19 02/04/19 1515:00 23:00 07:00 IntakeIntake Total 900 ml 200 ml OutputOutput Total 1000 ml BalanceBalance 900 ml -800 ml Labs Result Diagram: 02/04/19 0611 02/04/19 0611 Results 24hrs Laboratory Tests Test 02/03/19 08:50 02/03/19 11:58 02/03/19 12:10 02/03/19 16:21 D-Dimer 418.56 D-Dimer Comment Troponin I < 0.012 < 0.012 Bedside Glucose 205 Test 02/03/19 16:56 02/03/19 20:52 02/04/19 06:11 Bedside Glucose 210 178 White Blood Count 7.2 Red Blood Count 4.27 L Hemoglobin 12.7 L Hematocrit 38.0 L Mean Corpuscular 89.0 Volume Mean Corpuscular 29.7 Hemoglobin Mean Corpuscular 33.4 Hemoglobin Concent Red Cell 13.1 Distribution Width Platelet Count 193 Mean Platelet Volume 9.8 Immature 0.300 Granulocytes % Neutrophils % 51.6 Lymphocytes % 34.2 Monocytes % 9.7 Eosinophils % 3.6 Basophils % 0.6 Nucleated Red Blood 0.0 Cells % Immature 0.020 Granulocytes # Neutrophils # 3.7 Lymphocytes # 2.5 Monocytes # 0.7 Eosinophils # 0.3 Basophils # 0.0 Nucleated Red Blood 0.0 Cells # Sodium Level 141 Potassium Level 4.0 Chloride Level 100 Carbon Dioxide Level 32 H Anion Gap 9 Blood Urea Nitrogen 17 Creatinine 0.67 Est Glomerular > 60 Filtrat Rate mL/min Glucose Level 131 Hemoglobin A1c 7.4 H Calcium Level 9.0 Total Bilirubin 0.5 Direct Bilirubin 0.00 Indirect Bilirubin 0.5 Aspartate Amino 25 Transf (AST/SGOT) Alanine 31 Aminotransferase (AL T/SGPT) Alkaline Phosphatase 54 Total Protein 6.6 Albumin 3.8 Globulin 2.80 Albumin/Globulin 1.35 Ratio Medications Medications Current Medications Aspirin (Aspirin) 81 mg DAILY PO Last administered on 02/03/19 09:18; Admin Dose 81 MG; Start 02/03/19 at 09:00 Insulin Aspart (Novolog Insulin Pen) NOVOLOG *MILD* ALGORITHM WITH MEALS BEDTIME SC Last administered on 02/03/19 17:04; Admin Dose 2 UNIT; Start 02/02/19 at 18:00 Atorvastatin Calcium (Lipitor) 80 mg QHS PO Last administered on 02/03/19 20:54; Admin Dose 80 MG; Start 02/02/19 at 21:00 Carvedilol (Coreg) 6.25 mg BID PO Last administered on 02/03/19 20:56; Admin Dose 6.25 MG; Start 02/02/19 at 21:00 Duloxetine HCl (Cymbalta) 60 mg DAILY PO Last administered on 02/03/19 09:17; Admin Dose 60 MG; Start 02/03/19 at 09:00 Insulin Glargine (Lantus) 12 units QHS SC Last administered on 02/03/19 21:17; Admin Dose 12 UNITS; Start 02/02/19 at 21:00 Tamsulosin HCl (Flomax) 0.4 mg HS PO Last administered on 02/03/19at 20:55; Admin Dose 0.4 MG; Start 02/02/19 at 21:00 Miscellaneous Information 1 ea NOTE XX ; Start 02/02/19 at 19:30 Glucose (Glutose) 15 gm Q15M PRN PO DECREASED GLUCOSE; Start 02/02/19 at 19:30 Glucose (Glutose) 22.5 gm Q15M PRN PO DECREASED GLUCOSE; Start 02/02/19 at 19:30 Dextrose (D50w Syringe) 25 ml Q15M PRN IV DECREASED GLUCOSE; Start 02/02/19 at 19:30 Dextrose (D50w Syringe) 50 ml Q15M PRN IV DECREASED GLUCOSE; Start 02/02/19 at 19:30 Glucagon (Glucagen) 1 mg Q15M PRN IM DECREASED GLUCOSE; Start 02/02/19 at 19:30 Glucose (Glutose) 15 gm Q15M PRN BUCCAL DECREASED GLUCOSE; Start 02/02/19 at 19:30 Nitroglycerin (Nitroglycerin (Sl Tab) 0.4 Mg) 1 tab Q5M PRN SL ANGINA Last administered on 02/03/19 07:45; Admin Dose 1 TAB; Start 02/03/19 at 04:30 Morphine Sulfate (morphine) 1 mg Q2H PRN IV SEVERE PAIN LEVEL 7-10 Last administered on 02/03/19 07:51; Admin Dose 1 MG; Start 02/03/19 at 04:30 Isosorbide Dinitrate (Isordil) 10 mg TID PO Last administered on 02/03/19 20:55; Admin Dose 10 MG; Start 02/03/19 at 21:00 Lisinopril (Zestril) 20 mg DAILY PO Last administered on 02/03/19at 16:04; Admin Dose 20 MG; Start 02/03/19 at 15:00 Heparin Sodium (Porcine) (Heparin (5000 Units/1ml)) 5,000 unit BID SC Last administered on 02/03/19 20:56; Admin Dose 5,000 UNIT; Start 02/03/19 at 21:00 Acetaminophen (Tylenol Tab) 650 mg Q6H PRN PO MILD PAIN(1-3)OR ELEVATED TEMP Last administered on 02/03/19at 21:54; Admin Dose 650 MG; Start 02/03/19 at 22:00 Clonidine (Catapres) 0.1 mg Q6H PRN PO HYPERTENSION; Start 02/04/19 at 08:00 MANUEL MANCERA MD Feb 04, 2019 08:03
[2019-02-04] MEDS: DULOXETINE 30 MG CAP DR PO SCH (08:05)
[2019-02-04] MEDS: ASPIRIN 81 MG TAB PO SCH (08:05)
[2019-02-04] MEDS: ISOSORBIDE DINITRATE 5 MG TAB PO SCH ×3 (08:06→21:00)
[2019-02-04] MEDS: LISINOPRIL 20 MG TAB PO SCH (08:06)
[2019-02-04] MEDS: HEPARIN 5,000 UNIT/1 ML VIAL SC SCH ×2 (08:31→22:38)
[2019-02-04] MEDS: ACETAMINOPHEN 325 MG TAB PO PRN (12:10)
--- NOTE | 2019-02-04 12:23 | PN ---
Date/Time of Note Date/Time of Note DATE: 02/04/19 TIME: 12:15 Assessment/Plan VTE Prophylaxis Risk score (from Nsg)>0 risk: 7 SCD applied (from Nsg): Yes Pharmacological prophylaxis: heparin Lines/Catheters IV Catheter Type (from Nrsg): Peripheral IV Assessment/Plan Assessment/Plan 1. CAD, 3v disease, s/p LHC on 02/03/2019, on aspirin, lipitor, coreg, imdur, planned for CABG for Thursday 2. Diabetes mellitus, on insulin, hold metformin 3. Hypertension, lisinopril, coreg 4. Dyslipidemia, on lipitor 5. BPH, on flomax 6. DVT prophylaxis: heparin Result Diagram: 02/04/19 0611 02/04/19 0611 Results 24hrs Laboratory Tests Test 02/03/19 16:21 02/03/19 16:56 02/03/19 20:52 02/04/19 06:11 Troponin I < 0.012 Bedside Glucose 210 178 White Blood Count 7.2 Red Blood Count 4.27 L Hemoglobin 12.7 L Hematocrit 38.0 L Mean Corpuscular 89.0 Volume Mean Corpuscular 29.7 Hemoglobin Mean Corpuscular 33.4 Hemoglobin Concent Red Cell 13.1 Distribution Width Platelet Count 193 Mean Platelet Volume 9.8 Immature 0.300 Granulocytes % Neutrophils % 51.6 Lymphocytes % 34.2 Monocytes % 9.7 Eosinophils % 3.6 Basophils % 0.6 Nucleated Red Blood 0.0 Cells % Immature 0.020 Granulocytes # Neutrophils # 3.7 Lymphocytes # 2.5 Monocytes # 0.7 Eosinophils # 0.3 Basophils # 0.0 Nucleated Red Blood 0.0 Cells # Sodium Level 141 Potassium Level 4.0 Chloride Level 100 Carbon Dioxide Level 32 H Anion Gap 9 Blood Urea Nitrogen 17 Creatinine 0.67 Est Glomerular > 60 Filtrat Rate mL/min Glucose Level 131 Hemoglobin A1c 7.4 H Calcium Level 9.0 Total Bilirubin 0.5 Direct Bilirubin 0.00 Indirect Bilirubin 0.5 Aspartate Amino 25 Transf (AST/SGOT) Alanine 31 Aminotransferase (AL T/SGPT) Alkaline Phosphatase 54 Total Protein 6.6 Albumin 3.8 Globulin 2.80 Albumin/Globulin 1.35 Ratio Test 02/04/19 08:03 Bedside Glucose 120 Subjective 24 Hr Interval Summary Free Text/Dictation no chest pain or shortness of breath Exam/Review of Systems Exam Vitals Vital Signs Date Temp Pulse Resp B/P (MAP) Pulse Ox O2 O2 Flow FiO2 Time Delivery Rate 02/04/19 98.7 57 16 164/78 98 Room Air 11:47 (106) 02/03/19 3.0 15:50 Intake and Output 02/03/19 02/03/19 02/04/19 1515:00 23:00 07:00 IntakeIntake Total 900 ml 200 ml OutputOutput Total 1000 ml BalanceBalance 900 ml -800 ml Constitutional: alert, oriented, well developed Psych: no complaints, nl mood/affect Head: normocephalic, atraumatic Eyes: nl conjunctiva, EOMI, nl lids ENMT: nl external ears & nose, nl lips & teeth, nl nasal mucosa & septum Neck: supple Respiratory: clear to auscultation, normal air movement; No congested cough, No crackles/rales, No diminished breath sounds, No intercostal retraction, No labored breathing, No respirations, No tactile fremitus, No wheezing, No other Cardiovascular: regular rate and rhythm, nl pulses; No bruits, No diastolic murmur, No edema, No gallop, No irregular rhythm, No jugular venous distention (JVD), No murmurs/extra sounds, No rub, No systolic murmur, No S3, No S4, No other Gastrointestinal: soft, nl liver, spleen, non-tender Musculoskeletal: nl extremities to inspection Extremities: normal pulses; No calf tenderness, No cyanosis, No clubbing, No edema, No pitting pedal edema, No palpable cord, No tenderness, No other Neurological: [employer] II-XII intact, nl mental status, nl speech, nl strength Results Results 24hrs Laboratory Tests Test 02/03/19 16:21 02/03/19 16:56 02/03/19 20:52 02/04/19 06:11 Troponin I < 0.012 Bedside Glucose 210 178 White Blood Count 7.2 Red Blood Count 4.27 L Hemoglobin 12.7 L Hematocrit 38.0 L Mean Corpuscular 89.0 Volume Mean Corpuscular 29.7 Hemoglobin Mean Corpuscular 33.4 Hemoglobin Concent Red Cell 13.1 Distribution Width Platelet Count 193 Mean Platelet Volume 9.8 Immature 0.300 Granulocytes % Neutrophils % 51.6 Lymphocytes % 34.2 Monocytes % 9.7 Eosinophils % 3.6 Basophils % 0.6 Nucleated Red Blood 0.0 Cells % Immature 0.020 Granulocytes # Neutrophils # 3.7 Lymphocytes # 2.5 Monocytes # 0.7 Eosinophils # 0.3 Basophils # 0.0 Nucleated Red Blood 0.0 Cells # Sodium Level 141 Potassium Level 4.0 Chloride Level 100 Carbon Dioxide Level 32 H Anion Gap 9 Blood Urea Nitrogen 17 Creatinine 0.67 Est Glomerular > 60 Filtrat Rate mL/min Glucose Level 131 Hemoglobin A1c 7.4 H Calcium Level 9.0 Total Bilirubin 0.5 Direct Bilirubin 0.00 Indirect Bilirubin 0.5 Aspartate Amino 25 Transf (AST/SGOT) Alanine 31 Aminotransferase (AL T/SGPT) Alkaline Phosphatase 54 Total Protein 6.6 Albumin 3.8 Globulin 2.80 Albumin/Globulin 1.35 Ratio Test 02/04/19 08:03 Bedside Glucose 120 Medications Medication Current Medications Aspirin (Aspirin) 81 mg DAILY PO Last administered on 02/04/19 08:05; Admin Dose 81 MG; Start 02/03/19 at 09:00 Insulin Aspart (Novolog Insulin Pen) NOVOLOG *MILD* ALGORITHM WITH MEALS B EDTIME SC Last administered on 02/04/19at 12:08; Admin Dose 2 UNIT; Start 02/02/19 at 18:00 Atorvastatin Calcium (Lipitor) 80 mg QHS PO Last administered on 02/03/19at 20:54; Admin Dose 80 MG; Start 02/02/19 at 21:00 Duloxetine HCl (Cymbalta) 60 mg DAILY PO Last administered on 02/04/19at 08:05; Admin Dose 60 MG; Start 02/03/19 at 09:00 Insulin Glargine (Lantus) 12 units QHS SC Last administered on 02/03/19at 21:17; Admin Dose 12 UNITS; Start 02/02/19 at 21:00 Tamsulosin HCl (Flomax) 0.4 mg HS PO Last administered on 02/03/19at 20:55; Admin Dose 0.4 MG; Start 02/02/19 at 21:00 Miscellaneous Information 1 ea NOTE XX ; Start 02/02/19 at 19:30 Glucose (Glutose) 15 gm Q15M PRN PO DECREASED GLUCOSE; Start 02/02/19 at 19:30 Glucose (Glutose) 22.5 gm Q15M PRN PO DECREASED GLUCOSE; Start 02/02/19 at 19:30 Dextrose (D50w Syringe) 25 ml Q15M PRN IV DECREASED GLUCOSE; Start 02/02/19 at 19:30 Dextrose (D50w Syringe) 50 ml Q15M PRN IV DECREASED GLUCOSE; Start 02/02/19 at 19:30 Glucagon (Glucagen) 1 mg Q15M PRN IM DECREASED GLUCOSE; Start 02/02/19 at 19:30 Glucose (Glutose) 15 gm Q15M PRN BUCCAL DECREASED GLUCOSE; Start 02/02/19 at 19:30 Nitroglycerin (Nitroglycerin (Sl Tab) 0.4 Mg) 1 tab Q5M PRN SL ANGINA Last administered on 02/03/19 07:45; Admin Dose 1 TAB; Start 02/03/19 at 04:30 Morphine Sulfate (morphine) 1 mg Q2H PRN IV SEVERE PAIN LEVEL 7-10 Last administered on 02/03/19 07:51; Admin Dose 1 MG; Start 02/03/19 at 04:30 Isosorbide Dinitrate (Isordil) 10 mg TID PO Last administered on 02/04/19 08:06; Admin Dose 10 MG; Start 02/03/19 at 21:00 Lisinopril (Zestril) 20 mg DAILY PO Last administered on 02/04/19 08:06; Admin Dose 20 MG; Start 02/03/19 at 15:00 Heparin Sodium (Porcine) (Heparin (5000 Units/1ml)) 5,000 unit BID SC Last administered on 02/04/19 08:31; Admin Dose 5,000 UNIT; Start 02/03/19 at 21:00 Acetaminophen (Tylenol Tab) 650 mg Q6H PRN PO MILD PAIN(1-3)OR ELEVATED TEMP Last administered on 02/04/19 12:10; Admin Dose 650 MG; Start 02/03/19 at 22:00 Clonidine (Catapres) 0.1 mg Q6H PRN PO HYPERTENSION Last administered on 02/04/19 12:11; Admin Dose 0.1 MG; Start 02/04/19 at 08:00 Carvedilol (Coreg) 12.5 mg BID PO ; Start 02/04/19 at 09:00 ADRIEL BAILON MD Feb 04, 2019 12:23
--- NOTE | 2019-02-04 13:34 | CONS ---
Assessment/Plan Assessment/Plan Assessment/Plan (Daily) 63 year old male with 3V CAD who will need a CABG. I will order a ct neck to assess trachea since he has a history of throat cancer and surgery with radiation. I explained the risks, benefits, and alternatives of surgery. The risks are but not limited to bleeding, infection, stroke, [place], renal and re spiratory failure and . He understands and consents. Will plan on surgery Thursday. Consultation Date/Type/Reason Admit Date/Time Feb 03, 2019 at 18:10 Date of Consultation: Feb 04, [address] surgery Reason for Consultation eval for cabg Requesting Provider: Jd Santos DO Date/Time of Note DATE: 02/04/19 TIME: 13:27 Hx of Present Illness 63 year old male with exertional angina had angiogram which shows severe 3V CAD. We are asked to see for CABG. He states that his angina has increased over the last 2 weeks. He quit smoking in 2000 after he was diagnosed with throat cancer requiring surgery and radiation. Constitutional: no complaints, improved Eyes: no complaints ENT: no complaints Respiratory: no complaints, shortness of breath Cardiovascular: chest pain Gastrointestinal: no complaints Genitourinary: no complaints Musculoskeletal: no complaints Skin: no complaints Lymphatic: No no complaints, No adenopathy, No tender nodes, No lymphadema, No other Immunologic: no complaints Past Medical History Medical History: coronary artery disease, diabetes, high cholesterol, hypertension Home Meds Reported Medications Insulin Glargine* (Lantus*) 100 Unit/Ml Soln, 12 UNIT SC QHS, #1 VIAL 02/02/19 Aspirin* (Aspirin*) 325 Mg Tablet, 325 MG PO DAILY, TAB 02/02/19 Duloxetine Hcl* (Duloxetine Hcl*) 60 Mg Capsule.dr, 60 MG PO DAILY, #30 CAP 02/02/19 Tamsulosin Hcl* (Tamsulosin Hcl*) 0.4 Mg Cap.er.24h, 0.4 MG PO HS, CAP 02/02/19 Atorvastatin* (Atorvastatin*) 80 Mg Tablet, 80 MG PO QHS, #30 TAB 02/02/19 Lisinopril* (Lisinopril*) 40 Mg Tablet, 40 MG PO DAILY, #30 TAB 02/02/19 Glipizide* (Glipizide*) 10 Mg Tablet, 10 MG PO DAILY, TAB 02/02/19 Carvedilol* (Carvedilol*) 6.25 Mg Tablet, 6.25 MG PO BID, #60 TAB 02/02/19 Metformin* (Glucophage*) 1,000 Mg Tablet, 1000 MG PO DAILY, #60 TAB 02/02/19 Medications Current Medications Aspirin (Aspirin) 81 mg DAILY PO Last administered on 02/04/19at 08:05; Admin Dose 81 MG; Start 02/03/19 at 09:00 Insulin Aspart (Novolog Insulin Pen) NOVOLOG *MILD* ALGORITHM WITH MEALS BEDTIME SC Last administered on 02/04/19at 12:08; Admin Dose 2 UNIT; Start 02/02/19 at 18:00 Atorvastatin Calcium (Lipitor) 80 mg QHS PO Last administered on 02/03/19at 20:54; Admin Dose 80 MG; Start 02/02/19 at 21:00 Duloxetine HCl (Cymbalta) 60 mg DAILY PO Last administered on 02/04/19at 08:05; Admin Dose 60 MG; Start 02/03/19 at 09:00 Insulin Glargine (Lantus) 12 units QHS SC Last administered on 02/03/19at 21:17; Admin Dose 12 UNITS; Start 02/02/19 at 21:00 Tamsulosin HCl (Flomax) 0.4 mg HS PO Last administered on 02/03/19at 20:55; Admin Dose 0.4 MG; Start 02/02/19 at 21:00 Miscellaneous Information 1 ea NOTE XX ; Start 02/02/19 at 19:30 Glucose (Glutose) 15 gm Q15M PRN PO DECREASED GLUCOSE; Start 02/02/19 at 19:30 Glucose (Glutose) 22.5 gm Q15M PRN PO DECREASED GLUCOSE; Start 02/02/19 at 19:30 Dextrose (D50w Syringe) 25 ml Q15M PRN IV DECREASED GLUCOSE; Start 02/02/19 at 19:30 Dextrose (D50w Syringe) 50 ml Q15M PRN IV DECREASED GLUCOSE; Start 02/02/19 at 19:30 Glucagon (Glucagen) 1 mg Q15M PRN IM DECREASED GLUCOSE; Start 02/02/19 at 19:30 Glucose (Glutose) 15 gm Q15M PRN BUCCAL DECREASED GLUCOSE; Start 02/02/19 at 19:30 Nitroglycerin (Nitroglycerin (Sl Tab) 0.4 Mg) 1 tab Q5M PRN SL ANGINA Last administered on 02/03/19 07:45; Admin Dose 1 TAB; Start 02/03/19 at 04:30 Morphine Sulfate (morphine) 1 mg Q2H PRN IV SEVERE PAIN LEVEL 7-10 Last administered on 02/03/19 07:51; Admin Dose 1 MG; Start 02/03/19 at 04:30 Isosorbide Dinitrate (Isordil) 10 mg TID PO Last administered on 02/04/19 08:06; Admin Dose 10 MG; Start 02/03/19 at 21:00 Heparin Sodium (Porcine) (Heparin (5000 Units/1ml)) 5,000 unit BID SC Last administered on 02/04/19 08:31; Admin Dose 5,000 UNIT; Start 02/03/19 at 21:00 Acetaminophen (Tylenol Tab) 650 mg Q6H PRN PO MILD PAIN(1-3)OR ELEVATED TEMP Last administered on 02/04/19 12:10; Admin Dose 650 MG; Start 02/03/19 at 22:00 Clonidine (Catapres) 0.1 mg Q6H PRN PO HYPERTENSION Last administered on 02/04/19 12:11; Admin Dose 0.1 MG; Start 02/04/19 at 08:00 Carvedilol (Coreg) 12.5 mg BID PO ; Start 02/04/19 at 09:00 Lisinopril (Zestril) 40 mg DAILY PO ; Start 02/05/19 at 09:00 Allergies: Coded Allergies: codeine (Verified Allergy, Unknown, PANCREAS PAIN, 02/02/19) Past Surgical History Past Surgical Hx: other (throat surgery) Family History Significant Family History: no pertinent family hx Social History Alcohol Use: rarely Smoking Status: Former smoker Drug Use: none Exam/Review of Systems Exam Vitals Vital Signs Date Temp Pulse Resp B/P (MAP) Pulse Ox O2 O2 Flow FiO2 Time Delivery Rate 02/04/19 50 12:35 02/04/19 98.7 16 164/78 98 Room Air 11:47 (106) 02/03/19 3.0 15:50 Intake and Output 02/03/19 02/03/19 02/04/19 1515:00 23:00 07:00 IntakeIntake Total 900 ml 200 ml OutputOutput Total 1000 ml BalanceBalance 900 ml -800 ml Constitutional: alert, oriented, well developed Psych: no complaints, nl mood/affect Head: normocephalic, atraumatic Eyes: nl conjunctiva, EOMI, nl lids, nl sclera, PERRL ENMT: nl external ears & nose, nl lips & teeth, nl nasal mucosa & septum Neck: other (trach scar) Respiratory: clear to auscultation, normal air movement Cardiovascular: regular rate and rhythm, nl pulses Musculoskeletal: nl extremities to inspection, nl gait and stance Extremities: normal pulses Neurological: [employer] II-XII intact, nl mental status, nl speech, nl strength Skin: nl turgor; No rash or lesions Lymph: nl lymph nodes Results Result Diagram: 02/04/19 0611 02/04/19 0611 Results 24hrs Laboratory Tests Test 02/03/19 16:21 02/03/19 16:56 02/03/19 20:52 02/04/19 06:11 Troponin I < 0.012 Bedside Glucose 210 178 White Blood Count 7.2 Red Blood Count 4.27 L Hemoglobin 12.7 L Hematocrit 38.0 L Mean Corpuscular 89.0 Volume Mean Corpuscular 29.7 Hemoglobin Mean Corpuscular 33.4 Hemoglobin Concent Red Cell 13.1 Distribution Width Platelet Count 193 Mean Platelet Volume 9.8 Immature 0.300 Granulocytes % Neutrophils % 51.6 Lymphocytes % 34.2 Monocytes % 9.7 Eosinophils % 3.6 Basophils % 0.6 Nucleated Red Blood 0.0 Cells % Immature 0.020 Granulocytes # Neutrophils # 3.7 Lymphocytes # 2.5 Monocytes # 0.7 Eosinophils # 0.3 Basophils # 0.0 Nucleated Red Blood 0.0 Cells # Sodium Level 141 Potassium Level 4.0 Chloride Level 100 Carbon Dioxide Level 32 H Anion Gap 9 Blood Urea Nitrogen 17 Creatinine 0.67 Est Glomerular > 60 Filtrat Rate mL/min Glucose Level 131 Hemoglobin A1c 7.4 H Calcium Level 9.0 Total Bilirubin 0.5 Direct Bilirubin 0.00 Indirect Bilirubin 0.5 Aspartate Amino 25 Transf (AST/SGOT) Alanine 31 Aminotransferase (AL T/SGPT) Alkaline Phosphatase 54 Total Protein 6.6 Albumin 3.8 Globulin 2.80 Albumin/Globulin 1.35 Ratio Test 02/04/19 08:03 02/04/19 12:04 Bedside Glucose 120 206 Medications Medication Current Medications Aspirin (Aspirin) 81 mg DAILY PO Last administered on 02/04/19at 08:05; Admin Dose 81 MG; Start 02/03/19 at 09:00 Insulin Aspart (Novolog Insulin Pen) NOVOLOG *MILD* ALGORITHM WITH MEALS BEDTIME SC Last administered on 02/04/19at 12:08; Admin Dose 2 UNIT; Start 02/02/19 at 18:00 Atorvastatin Calcium (Lipitor) 80 mg QHS PO Last administered on 02/03/19at 20:54; Admin Dose 80 MG; Start 02/02/19 at 21:00 Duloxetine HCl (Cymbalta) 60 mg DAILY PO Last administered on 02/04/19at 08:05; Admin Dose 60 MG; Start 02/03/19 at 09:00 Insulin Glargine (Lantus) 12 units QHS SC Last administered on 02/03/19at 21:17; Admin Dose 12 UNITS; Start 02/02/19 at 21:00 Tamsulosin HCl (Flomax) 0.4 mg HS PO Last administered on 02/03/19at 20:55; Admin Dose 0.4 MG; Start 02/02/19 at 21:00 Miscellaneous Information 1 ea NOTE XX ; Start 02/02/19 at 19:30 Glucose (Glutose) 15 gm Q15M PRN PO DECREASED GLUCOSE; Start 02/02/19 at 19:30 Glucose (Glutose) 22.5 gm Q15M PRN PO DECREASED GLUCOSE; Start 02/02/19 at 19:30 Dextrose (D50w Syringe) 25 ml Q15M PRN IV DECREASED GLUCOSE; Start 02/02/19 at 19:30 Dextrose (D50w Syringe) 50 ml Q15M PRN IV DECREASED GLUCOSE; Start 02/02/19 at 19:30 Glucagon (Glucagen) 1 mg Q15M PRN IM DECREASED GLUCOSE; Start 02/02/19 at 19:30 Glucose (Glutose) 15 gm Q15M PRN BUCCAL DECREASED GLUCOSE; Start 02/02/19 at 19:30 Nitroglycerin (Nitroglycerin (Sl Tab) 0.4 Mg) 1 tab Q5M PRN SL ANGINA Last administered on 02/03/19at 07:45; Admin Dose 1 TAB; Start 02/03/19 at 04:30 Morphine Sulfate (morphine) 1 mg Q2H PRN IV SEVERE PAIN LEVEL 7-10 Last administered on 02/03/19 07:51; Admin Dose 1 MG; Start 02/03/19 at 04:30 Isosorbide Dinitrate (Isordil) 10 mg TID PO Last administered on 02/04/19 08:06; Admin Dose 10 MG; Start 02/03/19 at 21:00 Heparin Sodium (Porcine) (Heparin (5000 Units/1ml)) 5,000 unit BID SC Last administered on 02/04/19 08:31; Admin Dose 5,000 UNIT; Start 02/03/19 at 21:00 Acetaminophen (Tylenol Tab) 650 mg Q6H PRN PO MILD PAIN(1-3)OR ELEVATED TEMP Last administered on 02/04/19 12:10; Admin Dose 650 MG; Start 02/03/19 at 22:00 Clonidine (Catapres) 0.1 mg Q6H PRN PO HYPERTENSION Last administered on 02/04/19 12:11; Admin Dose 0.1 MG; Start 02/04/19 at 08:00 Carvedilol (Coreg) 12.5 mg BID PO ; Start 02/04/19 at 09:00 Lisinopril (Zestril) 40 mg DAILY PO ; Start 02/05/19 at 09:00 ELIAS SHANE MD Feb 04, 2019 13:34
[2019-02-04] MEDS: TAMSULOSIN (SR) 0.4 MG CAP PO SCH (22:00)
[2019-02-04] MEDS: ATORVASTATIN 80 MG TAB PO SCH (22:00)
[2019-02-04] MEDS: INSULIN GLARGINE [LANTus] (100 UNITS/ML) SYG SC SCH (22:37)
[2019-02-05] VITALS (13 sets, daily range): BP systolic 116–187; BP diastolic 60–86; PULSE 48–81; RESP 16–20
[2019-02-05] MEDS: hydrALAzine 20 MG INJ IV PRN (00:13)
[2019-02-05] MEDS: ASPIRIN 81 MG TAB PO SCH (08:15)
[2019-02-05] MEDS: DULOXETINE 30 MG CAP DR PO SCH (08:19)
[2019-02-05] MEDS: ISOSORBIDE DINITRATE 5 MG TAB PO SCH ×3 (08:20→21:24)
[2019-02-05] MEDS: LISINOPRIL 20 MG TAB PO SCH (08:20)
[2019-02-05] MEDS: HEPARIN 5,000 UNIT/1 ML VIAL SC SCH ×2 (08:25→22:07)
--- NOTE | 2019-02-05 09:59 | PN ---
Date/Time of Note Date/Time of Note DATE: 02/05/19 TIME: 09:57 Assessment/Plan Lines/Catheters IV Catheter Type (from Nrsg): Peripheral IV Assessment/Plan Chief Complaint/Hosp Course cad cabg thursday Subjective 24 Hr Interval Summary Constitutional: no complaints Feeding: baseline diet Pain Control: well controlled Exam/Review of Systems Vital Signs Vitals Vital Signs Date Temp Pulse Resp B/P (MAP) Pulse Ox O2 O2 Flow FiO2 Time Delivery Rate 02/05/19 60 08:01 02/05/19 97.7 18 165/80 Room Air 07:22 (108) 02/05/19 98 04:00 02/03/19 3.0 15:50 Intake and Output 02/04/19 02/04/19 02/05/19 1515:00 23:00 07:00 IntakeIntake Total 800 ml 240 ml OutputOutput Total 6 ml BalanceBalance 794 ml 240 ml Exam Constitutional: other (sleeping) Neck: other (ct neck no tracheal stenosis) Respiratory: clear to auscultation Cardiovascular: regular rate and rhythm Neurological: other (carotid duplex no significant stenosis) Results Result Diagram: 02/05/19 0618 02/04/19 0611 KATLYN COVARRUBIAS MD Feb 05, 2019 09:59
[2019-02-05] MEDS: INSULIN ASPART [NOVOLOG] 3 ML PEN SC SCH ×4 (10:01→22:08)
--- NOTE | 2019-02-05 13:57 | PN ---
Date/Time of Note Date/Time of Note DATE: 02/05/19 TIME: 13:50 Assessment/Plan VTE Prophylaxis Risk score (from Nsg)>0 risk: 7 SCD applied (from Nsg): Yes Pharmacological prophylaxis: heparin Lines/Catheters IV Catheter Type (from Nrsg): Peripheral IV Assessment/Plan Assessment/Plan 1. CAD s/p LHC on 02/03/2019 - Patient found with 3 vessel disease during PCI requiring CABG - Cardiology on board and appreciate recommends. Continue current treatment - CT surgery on board and plans for CABG on Thursday 2. Diabetes mellitus - A1c noted - continue on Lantus - ISS and accuchecks 3. Hypertension - stable - will adjust medications as needed 4. HLD - continue statin 5. BPH - contniue on flomax 6. Disposition - Continue current care and plans for CABG Thursday Result Diagram: 02/05/1961702/04/19 06 Results 24hrs Laboratory Tests Test 02/04/19 17:14 02/04/19 21:58 02/05/19 06:18 02/05/19 07:54 Bedside Glucose 201 234 H 262 H White Blood Count 6.9 Red Blood Count 4.46 L Hemoglobin 13.2 L Hematocrit 39.1 L Mean Corpuscular 87.7 Volume Mean Corpuscular 29.6 Hemoglobin Mean Corpuscular 33.8 Hemoglobin Concent Red Cell 13.0 Distribution Width Platelet Count 193 Mean Platelet Volume 9.5 Immature 0.300 Granulocytes % Neutrophils % 52.8 Lymphocytes % 32.4 Monocytes % 10.0 Eosinophils % 3.9 Basophils % 0.6 Nucleated Red Blood 0.0 Cells % Immature 0.020 Granulocytes # Neutrophils # 3.6 Lymphocytes # 2.2 Monocytes # 0.7 Eosinophils # 0.3 Basophils # 0.0 Nucleated Red Blood 0.0 Cells # Test 02/05/19 09:58 02/05/19 11:39 Bedside Glucose 310 H 221 H Subjective 24 Hr Interval Summary Free Text/Dictation Patient is doing well and denies any acute issues. Plans for CABG on Thursday Exam/Review of Systems Exam Vitals Vital Signs Date Temp Pulse Resp B/P (MAP) Pulse Ox O2 O2 Flow FiO2 Time Delivery Rate 02/05/19 97.6 56 18 116/65 98 Room Air 12:05 (82) 02/03/19 3.0 15:50 Intake and Output 02/04/19 02/04/19 02/05/19 1515:00 23:00 07:00 IntakeIntake Total 800 ml 240 ml OutputOutput Total 6 ml BalanceBalance 794 ml 240 ml Exam General: Patient is in no acute distress. answering questions appropriately Neck: Supple Chest: Nontender Lungs: Clear to auscultation bilaterally no crackles rales or wheezing Heart: Normal S1-S2, Regular rhythm and rate. No murmur, S3, or S4 Abdomen: Soft , nontender, nondistended , bowel sounds are present. No guarding no rebound tenderness Extremities: Normal to inspection, no edema no cyanosis Results Results 24hrs Laboratory Tests Test 02/04/19 17:14 02/04/19 21:58 02/05/19 06:18 02/05/19 07:54 Bedside Glucose 201 234 H 262 H White Blood Count 6.9 Red Blood Count 4.46 L Hemoglobin 13.2 L Hematocrit 39.1 L Mean Corpuscular 87.7 Volume Mean Corpuscular 29.6 Hemoglobin Mean Corpuscular 33.8 Hemoglobin Concent Red Cell 13.0 Distribution Width Platelet Count 193 Mean Platelet Volume 9.5 Immature 0.300 Granulocytes % Neutrophils % 52.8 Lymphocytes % 32.4 Monocytes % 10.0 Eosinophils % 3.9 Basophils % 0.6 Nucleated Red Blood 0.0 Cells % Immature 0.020 Granulocytes # Neutrophils # 3.6 Lymphocytes # 2.2 Monocytes # 0.7 Eosinophils # 0.3 Basophils # 0.0 Nucleated Red Blood 0.0 Cells # Test 02/05/19 09:58 02/05/19 11:39 Bedside Glucose 310 H 221 H Medications Medication Current Medications Aspirin (Aspirin) 81 mg DAILY PO Last administered on 02/05/19 08:15; Admin Dose 81 MG; Start 02/03/19 at 09:00 Insulin Aspart (Novolog Insulin Pen) NOVOLOG *MILD* ALGORITHM WITH MEALS BEDTIME SC Last administered on 02/05/19at 11:44; Admin Dose 3 UNIT; Start 02/02/19 at 18:00 Atorvastatin Calcium (Lipitor) 80 mg QHS PO Last administered on 02/04/19at 22:00; Admin Dose 80 MG; Start 02/02/19 at 21:00 Duloxetine HCl (Cymbalta) 60 mg DAILY PO Last administered on 02/05/19 08:19; Admin Dose 60 MG; Start 02/03/19 at 09:00 Tamsulosin HCl (Flomax) 0.4 mg HS PO Last administered on 02/04/19 22:00; Adm in Dose 0.4 MG; Start 02/02/19 at 21:00 Miscellaneous Information 1 ea NOTE XX ; Start 02/02/19 at 19:30 Glucose (Glutose) 15 gm Q15M PRN PO DECREASED GLUCOSE; Start 02/02/19 at 19:30 Glucose (Glutose) 22.5 gm Q15M PRN PO DECREASED GLUCOSE; Start 02/02/19 at 19:30 Dextrose (D50w Syringe) 25 ml Q15M PRN IV DECREASED GLUCOSE; Start 02/02/19 at 19:30 Dextrose (D50w Syringe) 50 ml Q15M PRN IV DECREASED GLUCOSE; Start 02/02/19 at 19:30 Glucagon (Glucagen) 1 mg Q15M PRN IM DECREASED GLUCOSE; Start 02/02/19 at 19:30 Glucose (Glutose) 15 gm Q15M PRN BUCCAL DECREASED GLUCOSE; Start 02/02/19 at 19 :30 Nitroglycerin (Nitroglycerin (Sl Tab) 0.4 Mg) 1 tab Q5M PRN SL ANGINA Last administered on 02/03/19 07:45; Admin Dose 1 TAB; Start 02/03/19 at 04:30 Morphine Sulfate (morphine) 1 mg Q2H PRN IV SEVERE PAIN LEVEL 7-10 Last administered on 02/03/19 07:51; Admin Dose 1 MG; Start 02/03/19 at 04:30 Isosorbide Dinitrate (Isordil) 10 mg TID PO Last administered on 02/05/19 12:49; Admin Dose 10 MG; Start 02/03/19 at 21:00 Heparin Sodium (Porcine) (Heparin (5000 Units/1ml)) 5,000 unit BID SC Last administered on 02/05/19 08:25; Admin Dose 5,000 UNIT; Start 02/03/19 at 21:00 Acetaminophen (Tylenol Tab) 650 mg Q6H PRN PO MILD PAIN(1-3)OR ELEVATED TEMP Last administered on 02/04/19 12:10; Admin Dose 650 MG; Start 02/03/19 at 22:00 Clonidine (Catapres) 0.1 mg Q6H PRN PO HYPERTENSION Last administered on 02/04/19at 12:11; Admin Dose 0.1 MG; Start 02/04/19 at 08:00 Carvedilol (Coreg) 12.5 mg BID PO Last administered on 02/05/19at 08:16; Admin Dose 12.5 MG; Start 02/04/19 at 09:00 Lisinopril (Zestril) 40 mg DAILY PO Last administered on 02/05/19at 08:20; Admin Dose 40 MG; Start 02/05/19 at 09:00 Hydralazine HCl (Apresoline) 10 mg Q4H PRN IV SBP > 170 Last administered on 02/05/19at 00:13; Admin Dose 10 MG; Start 02/05/19 at 00:30 Insulin Glargine (Lantus) 14 units QHS SC ; Start 02/05/19 at 21:00 AIDAN PERKINS MD Feb 05, 2019 13:57
--- NOTE | 2019-02-05 17:10 | CONS ---
Assessment/Plan Assessment/Plan Hospital Course (Demo Recall) 63 yo with unstable angina, with 3 vessel coronary disease awaiting cabg. Impression: [place] with 3v cad awaiting cabg HTN not controlled Relative bradycardia leading to doses of carvedilol being held Recommendations: CABG Thursday with Dr. Dominguez Decrease carvedilol to 6.25 mg bid with hold parameters Start amlodipine for bp control On asa and statin appropriately Consultation Date/Type/Reason Admit Date/Time Feb 03, 2019 at 18:10 Initial Consult Date 02/04/19 Type of Consult Cardiology Requesting Provider: Jd Santos DO Date/Time of Note DATE: 02/05/19 TIME: 17:08 24 HR Interval Summary Free Text/Dictation Patient sleeping, I did not wake him. Chart reviewed, bp reviewed. Exam/Review of Systems Vital Signs Vitals Vital Signs Date Temp Pulse Resp B/P (MAP) Pulse Ox O2 O2 Flow FiO2 Time Delivery Rate 02/05/19 56 16:01 02/05/19 98.7 18 125/60 97 Room Air 15:54 (81) 02/03/19 3.0 15:50 Intake and Output 02/04/19 02/04/19 02/05/19 1515:00 23:00 07:00 IntakeIntake Total 800 ml 240 ml OutputOutput Total 6 ml BalanceBalance 794 ml 240 ml Labs Result Diagram: 02/05/19 0618 02/04/19 0611 Results 24hrs Laboratory Tests Test 02/04/19 17:14 02/04/19 21:58 02/05/19 06:18 02/05/19 07:54 Bedside Glucose 201 234 H 262 H White Blood Count 6.9 Red Blood Count 4.46 L Hemoglobin 13.2 L Hematocrit 39.1 L Mean Corpuscular 87.7 Volume Mean Corpuscular 29.6 Hemoglobin Mean Corpuscular 33.8 Hemoglobin Concent Red Cell 13.0 Distribution Width Platelet Count 193 Mean Platelet Volume 9.5 Immature 0.300 Granulocytes % Neutrophils % 52.8 Lymphocytes % 32.4 Monocytes % 10.0 Eosinophils % 3.9 Basophils % 0.6 Nucleated Red Blood 0.0 Cells % Immature 0.020 Granulocytes # Neutrophils # 3.6 Lymphocytes # 2.2 Monocytes # 0.7 Eosinophils # 0.3 Basophils # 0.0 Nucleated Red Blood 0.0 Cells # Test 02/05/19 09:58 02/05/19 11:39 Bedside Glucose 310 H 221 H Medications Medications Current Medications Aspirin (Aspirin) 81 mg DAILY PO Last administered on 02/05/19 08:15; Admin Dose 81 MG; Start 02/03/19 at 09:00 Insulin Aspart (Novolog Insulin Pen) NOVOLOG *MILD* ALGORITHM WITH MEALS BEDTIME SC Last administered on 02/05/19 11:44; Admin Dose 3 UNIT; Start 02/02/19 at 18:00 Atorvastatin Calcium (Lipitor) 80 mg QHS PO Last administered on 02/04/19 22:00; Admin Dose 80 MG; Start 02/02/19 at 21:00 Duloxetine HCl (Cymbalta) 60 mg DAILY PO Last administered on 02/05/19 08:19; Admin Dose 60 MG; Start 02/03/19 at 09:00 Tamsulosin HCl (Flomax) 0.4 mg HS PO Last administered on 02/04/19 22:00; Admin Dose 0.4 MG; Start 02/02/19 at 21:00 Miscellaneous Information 1 ea NOTE XX ; Start 02/02/19 at 19:30 Glucose (Glutose) 15 gm Q15M PRN PO DECREASED GLUCOSE; Start 02/02/19 at 19:30 Glucose (Glutose) 22.5 gm Q15M PRN PO DECREASED GLUCOSE; Start 02/02/19 at 19:30 Dextrose (D50w Syringe) 25 ml Q15M PRN IV DECREASED GLUCOSE; Start 02/02/19 at 19:30 Dextrose (D50w Syringe) 50 ml Q15M PRN IV DECREASED GLUCOSE; Start 02/02/19 at 19:30 Glucagon (Glucagen) 1 mg Q15M PRN IM DECREASED GLUCOSE; Start 02/02/19 at 19:30 Glucose (Glutose) 15 gm Q15M PRN BUCCAL DECREASED GLUCOSE; Start 02/02/19 at 19:30 Nitroglycerin (Nitroglycerin (Sl Tab) 0.4 Mg) 1 tab Q5M PRN SL ANGINA Last administered on 02/03/19 07:45; Admin Dose 1 TAB; Start 02/03/19 at 04:30 Morphine Sulfate (morphine) 1 mg Q2H PRN IV SEVERE PAIN LEVEL 7-10 Last administered on 02/03/19 07:51; Admin Dose 1 MG; Start 02/03/19 at 04:30 Isosorbide Dinitrate (Isordil) 10 mg TID PO Last administered on 02/05/19 12:49; Admin Dose 10 MG; Start 02/03/19 at 21:00 Heparin Sodium (Porcine) (Heparin (5000 Units/1ml)) 5,000 unit BID SC Last administered on 02/05/19 08:25; Admin Dose 5,000 UNIT; Start 02/03/19 at 21:00 Acetaminophen (Tylenol Tab) 650 mg Q6H PRN PO MILD PAIN(1-3)OR ELEVATED TEMP Last administered on 02/04/19 12:10; Admin Dose 650 MG; Start 02/03/19 at 22:00 Clonidine (Catapres) 0.1 mg Q6H PRN PO HYPERTENSION Last administered on 12:11; Admin Dose 0.1 MG; Start 02/04/19 at 08:00 Lisinopril (Zestril) 40 mg DAILY PO Last administered on 02/05/19 08:20; Admin Dose 40 MG; Start 02/05/19 at 09:00 Hydralazine HCl (Apresoline) 10 mg Q4H PRN IV SBP > 170 Last administered on 02/05/19 00:13; Admin Dose 10 MG; Start 02/05/19 at 00:30 Insulin Glargine (Lantus) 14 units QHS SC ; Start 02/05/19 at 21:00 Carvedilol (Coreg) 6.25 mg BID PO ; Start 02/05/19 at 21:00 Amlodipine Besylate (Norvasc) 5 mg DAILY PO ; Start 02/06/19 at 09:00 DANIS LOPEZ Feb 05, 2019 17:10
[2019-02-05] MEDS: ATORVASTATIN 80 MG TAB PO SCH (21:24)
[2019-02-05] MEDS: TAMSULOSIN (SR) 0.4 MG CAP PO SCH (21:24)
[2019-02-05] MEDS: INSULIN GLARGINE [LANTus] (100 UNITS/ML) SYG SC SCH (22:08)
[2019-02-05] MEDS: ACETAMINOPHEN 325 MG TAB PO PRN (23:45)
[2019-02-06] VITALS (11 sets, daily range): BP systolic 127–160; BP diastolic 62–85; PULSE 53–71; RESP 18
[2019-02-06] MEDS: INSULIN ASPART [NOVOLOG] 3 ML PEN SC SCH ×4 (08:17→20:20)
[2019-02-06] MEDS ORDERED: AMLODIPINE 5 MG TAB PO SCH (09:00)
[2019-02-06] MEDS: DULOXETINE 30 MG CAP DR PO SCH (09:26)
[2019-02-06] MEDS: LISINOPRIL 20 MG TAB PO SCH (09:26)
[2019-02-06] MEDS: ISOSORBIDE DINITRATE 5 MG TAB PO SCH ×3 (09:27→20:03)
[2019-02-06] MEDS: ASPIRIN 81 MG TAB PO SCH (09:28)
[2019-02-06] MEDS: HEPARIN 5,000 UNIT/1 ML VIAL SC SCH ×2 (09:50→20:06)
--- NOTE | 2019-02-06 10:55 | CONS ---
Assessment/Plan Assessment/Plan Hospital Course (Demo Recall) 63 yo with unstable angina, with 3 vessel coronary disease awaiting cabg. Impression: [place] with 3v cad awaiting cabg HTN, somewhat improved Relative bradycardia leading to doses of carvedilol being held Recommendations: CABG Thursday with Dr. Dominguez Decrease carvedilol to 6.25 mg bid with hold parameters Increase amlodipine On asa and statin appropriately Consultation Date/Type/Reason Admit Date/Time Feb 03, 2019 at 18:10 Initial Consult Date 02/04/19 Type of Consult Cardiology Requesting Provider: Jd Santos DO Date/Time of Note DATE: 02/06/19 TIME: 10:55 24 HR Interval Summary Free Text/Dictation Sitting up in chair, no further chest pain, no dyspnea Exam/Review of Systems Vital Signs Vitals Vital Signs Date Temp Pulse Resp B/P (MAP) Pulse Ox O2 O2 Flow FiO2 Time Delivery Rate 02/06/19 58 08:01 02/06/19 97.8 18 160/85 97 07:20 (110) 02/05/19 Room Air 21:17 02/03/19 3.0 15:50 Intake and Output 02/05/19 02/05/19 02/06/19 1515:00 23:00 07:00 IntakeIntake Total 1200 ml 650 ml BalanceBalance 1200 ml 650 ml Exam Constitutional: alert, oriented, well developed Psych: nl mood/affect Head: normocephalic, atraumatic Eyes: EOMI, nl lids, nl sclera ENMT: nl external ears & nose, nl lips & teeth, nl nasal mucosa & septum Neck: supple, non-tender Respiratory: clear to auscultation, normal air movement Cardiovascular: regular rate and rhythm, nl pulses; No murmurs/extra sounds Gastrointestinal: soft, non-tender Musculoskeletal: nl extremities to inspection Extremities: normal pulses Neurological: nl mental status, nl speech Skin: nl turgor; No rash or lesions Labs Result Diagram: 02/05/1918 02/04/19 0611 Results 24hrs Laboratory Tests Test 02/05/19 11:39 02/05/19 17:22 02/05/19 21:20 02/06/19 08:10 Bedside Glucose 221 H 218 257 H 193 Medications Medications Current Medications Aspirin (Aspirin) 81 mg DAILY PO Last administered on 02/06/19 09:28; Admin Dose 81 MG; Start 02/03/19 at 09:00 Insulin Aspart (Novolog Insulin Pen) NOVOLOG *MILD* ALGORITHM WITH MEALS BEDTIME SC Last administered on 02/06/19 08:17; Admin Dose 2 UNIT; Start 02/02/19 at 18:00 Atorvastatin Calcium (Lipitor) 80 mg QHS PO Last administered on 02/05/19 21:24; Admin Dose 80 MG; Start 02/02/19 at 21:00 Duloxetine HCl (Cymbalta) 60 mg DAILY PO Last administered on 02/06/19 09:26; Admin Dose 60 MG; Start 02/03/19 at 09:00 Tamsulosin HCl (Flomax) 0.4 mg HS PO Last administered on 02/05/19 21:24; Admin Dose 0.4 MG; Start 02/02/19 at 21:00 Miscellaneous Information 1 ea NOTE XX ; Start 02/02/19 at 19:30 Glucose (Glutose) 15 gm Q15M PRN PO DECREASED GLUCOSE; Start 02/02/19 at 19:30 Glucose (Glutose) 22.5 gm Q15M PRN PO DECREASED GLUCOSE; Start 02/02/19 at 19:30 Dextrose (D50w Syringe) 25 ml Q15M PRN IV DECREASED GLUCOSE; Start 02/02/19 at 19:30 Dextrose (D50w Syringe) 50 ml Q15M PRN IV DECREASED GLUCOSE; Start 02/02/19 at 19:30 Glucagon (Glucagen) 1 mg Q15M PRN IM DECREASED GLUCOSE; Start 02/02/19 at 19:30 Glucose (Glutose) 15 gm Q15M PRN BUCCAL DECREASED GLUCOSE; Start 02/02/19 at 19:30 Nitroglycerin (Nitroglycerin (Sl Tab) 0.4 Mg) 1 tab Q5M PRN SL ANGINA Last administered on 02/03/19 07:45; Admin Dose 1 TAB; Start 02/03/19 at 04:30 Morphine Sulfate (morphine) 1 mg Q2H PRN IV SEVERE PAIN LEVEL 7-10 Last administered on 02/03/19 07:51; Admin Dose 1 MG; Start 02/03/19 at 04:30 Isosorbide Dinitrate (Isordil) 10 mg TID PO Last administered on 02/06/19 09:27; Admin Dose 10 MG; Start 02/03/19 at 21:00 Heparin Sodium (Porcine) (Heparin (5000 Units/1ml)) 5,000 unit BID SC Last administered on 02/06/19 09:50; Admin Dose 5,000 UNIT; Start 02/03/19 at 21:00 Acetaminophen (Tylenol Tab) 650 mg Q6H PRN PO MILD PAIN(1-3)OR ELEVATED TEMP Last administered on 02/05/19 23:45; Admin Dose 650 MG; Start 02/03/19 at 22:00 Clonidine (Catapres) 0.1 mg Q6H PRN PO HYPERTENSION Last administered on 02/04/19 12:11; Admin Dose 0.1 MG; Start 02/04/19 at 08:00 Lisinopril (Zestril) 40 mg DAILY PO Last administered on 02/06/19 09:26; Admin Dose 40 MG; Start 02/05/19 at 09:00 Hydralazine HCl (Apresoline) 10 mg Q4H PRN IV SBP > 170 Last administered on 02/05/19 00:13; Admin Dose 10 MG; Start 02/05/19 at 00:30 Insulin Glargine (Lantus) 14 units QHS SC Last administered on 02/05/19 22:08; Admin Dose 14 UNITS; Start 02/05/19 at 21:00 Carvedilol (Coreg) 6.25 mg BID PO Last administered on 02/06/19 09:28; Admin Dose 6.25 MG; Start 02/05/19 at 21:00 Amlodipine Besylate (Norvasc) 5 mg DAILY PO Last administered on 02/06/19 09:27; Admin Dose 5 MG; Start 02/06/19 at 09:00 DANIS LOPEZ Feb 06, 2019 10:55
--- NOTE | 2019-02-06 11:38 | PN ---
Date/Time of Note Date/Time of Note DATE: 02/06/19 TIME: 11:37 Assessment/Plan Lines/Catheters IV Catheter Type (from Nrsg): Peripheral IV Assessment/Plan Chief Complaint/Hosp Course cad cabg thursday Subjective 24 Hr Interval Summary Constitutional: no complaints Pain Control: well controlled Exam/Review of Systems Vital Signs Vitals Vital Signs Date Temp Pulse Resp B/P (MAP) Pulse Ox O2 O2 Flow FiO2 Time Delivery Rate 02/06/19 98.3 57 18 127/62 97 11:29 (83) 02/05/19 Room Air 21:17 02/03/19 3.0 15:50 Intake and Output 02/05/19 02/05/19 02/06/19 1515:00 23:00 07:00 IntakeIntake Total 1200 ml 650 ml BalanceBalance 1200 ml 650 ml Exam Head: normocephalic ENMT: nl lips & teeth Neck: non-tender Respiratory: clear to auscultation Cardiovascular: regular rate and rhythm Neurological: BUNCHER HAND II-XII intact Results Result Diagram: 02/05/19 0618 02/04/19 0611 KATLYN COVARRUBIAS MD Feb 06, 2019 11:38
--- NOTE | 2019-02-06 12:04 | PN ---
Date/Time of Note Date/Time of Note DATE: 02/06/19 TIME: 12:03 Assessment/Plan VTE Prophylaxis Risk score (from Nsg)>0 risk: 3 SCD applied (from Nsg): Yes Pharmacological prophylaxis: heparin Lines/Catheters IV Catheter Type (from Nrsg): Peripheral IV Assessment/Plan Assessment/Plan 1. CAD s/p LHC on 02/03/2019 with 3 vessel disease - Cardiology on board and appreciate recommends. Continue current treatment - CT surgery on board and plans for CABG on Thursday 2. Diabetes mellitus - A1c noted - continue on Lantus - ISS and accuchecks 3. Hypertension - stable - will adjust medications as needed 4. HLD - continue statin 5. BPH - continue on flomax 6. Disposition - Remains stable with plans for CABG Thursday Result Diagram: 02/05/19 0618 02/04/19 0611 Results 24hrs Laboratory Tests Test 02/05/19 17:22 02/05/19 21:20 02/06/19 08:10 Bedside Glucose 218 257 H 193 Subjective 24 Hr Interval Summary Free Text/Dictation Patient denies any acute issues. Had episode of chest discomfort but relieved after given medications this am. No acute overnight events. Exam/Review of Systems Exam Vitals Vital Signs Date Temp Pulse Resp B/P (MAP) Pulse Ox O2 O2 Flow FiO2 Time Delivery Rate 02/06/19 98.3 57 18 127/62 97 11:29 (83) 02/05/19 Room Air 21:17 02/03/19 3.0 15:50 Intake and Output 02/05/19 02/05/19 02/06/19 1515:00 23:00 07:00 IntakeIntake Total 1200 ml 650 ml BalanceBalance 1200 ml 650 ml Exam General: Patient is in no acute distress. answering questions appropriately Neck: Supple Chest: Nontender Lungs: Clear to auscultation bilaterally no crackles rales or wheezing Heart: Normal S1-S2, Regular rhythm and rate. No murmur, S3, or S4 Abdomen: Soft , nontender, nondistended , bowel sounds are present. No guarding no rebound tenderness Extremities: Normal to inspection, no edema no cyanosis Results Results 24hrs Laboratory Tests Test 02/05/19 17:22 02/05/19 21:20 02/06/19 08:10 Bedside Glucose 218 257 H 193 Medications Medication Current Medications Aspirin (Aspirin) 81 mg DAILY PO Last administered on 02/06/19 09:28; Admin Dose 81 MG; Start 02/03/19 at 09:00 Insulin Aspart (Novolog Insulin Pen) NOVOLOG *MILD* ALGORITHM WITH MEALS BEDTIME SC Last administered on 02/06/19at 08:17; Admin Dose 2 UNIT; Start 02/02/19 at 18:00 Atorvastatin Calcium (Lipitor) 80 mg QHS PO Last administered on 02/05/19at 21:24; Admin Dose 80 MG; Start 02/02/19 at 21:00 Duloxetine HCl (Cymbalta) 60 mg DAILY PO Last administered on 02/06/19 09:26; Admin Dose 60 MG; Start 02/03/19 at 09:00 Tamsulosin HCl (Flomax) 0.4 mg HS PO Last administered on 02/05/19 21:24; Admin Dose 0.4 MG; Start 02/02/19 at 21:00 Miscellaneous Information 1 ea NOTE XX ; Start 02/02/19 at 19:30 Glucose (Glutose) 15 gm Q15M PRN PO DECREASED GLUCOSE; Start 02/02/19 at 19:30 Glucose (Glutose) 22.5 gm Q15M PRN PO DECREASED GLUCOSE; Start 02/02/19 at 19:30 Dextrose (D50w Syringe) 25 ml Q15M PRN IV DECREASED GLUCOSE; Start 02/02/19 at 19:30 Dextrose (D50w Syringe) 50 ml Q15M PRN IV DECREASED GLUCOSE; Start 02/02/19 at 19:30 Glucagon (Glucagen) 1 mg Q15M PRN IM DECREASED GLUCOSE; Start 02/02/19 at 19:30 Glucose (Glutose) 15 gm Q15M PRN BUCCAL DECREASED GLUCOSE; Start 02/02/19 at 19:30 Nitroglycerin (Nitroglycerin (Sl Tab) 0.4 Mg) 1 tab Q5M PRN SL ANGINA Last administered on 02/03/19at 07:45; Admin Dose 1 TAB; Start 02/03/19 at 04:30 Morphine Sulfate (morphine) 1 mg Q2H PRN IV SEVERE PAIN LEVEL 7-10 Last administered on 02/03/19at 07:51; Admin Dose 1 MG; Start 02/03/19 at 04:30 Isosorbide Dinitrate (Isordil) 10 mg TID PO Last administered on 02/06/19 09:27; Admin Dose 10 MG; Start 02/03/19 at 21:00 Heparin Sodium (Porcine) (Heparin (5000 Units/1ml)) 5,000 unit BID SC Last administered on 02/06/19 09:50; Admin Dose 5,000 UNIT; Start 02/03/19 at 21:00 Acetaminophen (Tylenol Tab) 650 mg Q6H PRN PO MILD PAIN(1-3)OR ELEVATED TEMP Last administered on 02/05/19 23:45; Admin Dose 650 MG; Start 02/03/19 at 22:00 Clonidine (Catapres) 0.1 mg Q6H PRN PO HYPERTENSION Last administered on 01/17 12:11; Admin Dose 0.1 MG; Start 02/04/19 at 08:00 Lisinopril (Zestril) 40 mg DAILY PO Last administered on 02/06/19 09:26; Admin Dose 40 MG; Start 02/05/19 at 09:00 Hydralazine HCl (Apresoline) 10 mg Q4H PRN IV SBP > 170 Last administered on 02/05/19 00:13; Admin Dose 10 MG; Start 02/05/19 at 00:30 Insulin Glargine (Lantus) 14 units QHS SC Last administered on 02/05/19 22:08; Admin Dose 14 UNITS; Start 02/05/19 at 21:00 Carvedilol (Coreg) 6.25 mg BID PO Last administered on 02/06/19 09:28; Admin Dose 6.25 MG; Start 02/05/19 at 21:00 Amlodipine Besylate (Norvasc) 10 mg DAILY PO ; Start 02/07/19 at 09:00 AIDAN PERKINS MD Feb 06, 2019 12:04
[2019-02-06] MEDS: ACETAMINOPHEN 325 MG TAB PO PRN (17:19)
[2019-02-06] MEDS: ATORVASTATIN 80 MG TAB PO SCH (20:02)
[2019-02-06] MEDS: TAMSULOSIN (SR) 0.4 MG CAP PO SCH (20:02)
[2019-02-06] MEDS: INSULIN GLARGINE [LANTus] (100 UNITS/ML) SYG SC SCH (20:12)
[2019-02-07] VITALS (11 sets, daily range): BP systolic 133–172; BP diastolic 67–81; PULSE 54–71; RESP 18–20
[2019-02-07] MEDS: hydrALAzine 20 MG INJ IV PRN (05:12)
[2019-02-07] MEDS ORDERED: CEFAZOLIN 2 GM/50 ML (PMX) 50 ML IVPB ONE (07:00)
[2019-02-07] MEDS: ASPIRIN 81 MG TAB PO SCH (07:42)
[2019-02-07] MEDS: DULOXETINE 30 MG CAP DR PO SCH (07:42)
[2019-02-07] MEDS: HEPARIN 5,000 UNIT/1 ML VIAL SC SCH ×2 (07:49→20:39)
[2019-02-07] MEDS: INSULIN ASPART [NOVOLOG] 3 ML PEN SC SCH ×4 (07:49→20:50)
[2019-02-07] MEDS: ISOSORBIDE DINITRATE 5 MG TAB PO SCH ×3 (09:00→20:39)
[2019-02-07] MEDS: AMLODIPINE 5 MG TAB PO SCH (09:00)
[2019-02-07] MEDS: LISINOPRIL 20 MG TAB PO SCH (09:00)
--- NOTE | 2019-02-07 10:23 | PN ---
Date/Time of Note Date/Time of Note DATE: 02/07/19 TIME: 10:22 Objective Vitals Vital Signs Date Temp Pulse Resp B/P (MAP) Pulse Ox O2 O2 Flow FiO2 Time Delivery Rate 02/07/19 71 08:01 02/07/19 98.0 20 133/69 98 07:40 (90) 02/06/19 Room Air 20:01 02/03/19 3.0 15:50 Intake and Output 02/06/19 02/06/19 02/07/19 1515:00 23:00 07:00 IntakeIntake Total 720 ml 780 ml BalanceBalance 720 ml 780 ml Results Result Diagram: 02/07/1952602/07/19526 Medications Medications Current Medications Aspirin (Aspirin) 81 mg DAILY PO Last administered on 02/07/19at 07:42; Admin Dose 81 MG; Start 02/03/19 at 09:00 Insulin Aspart (Novolog Insulin Pen) NOVOLOG *MILD* ALGORITHM WITH MEALS BEDTIME SC Last administered on 02/07/19at 07:49; Admin Dose 2 UNIT; Start 02/02/19 at 18:00 Atorvastatin Calcium (Lipitor) 80 mg QHS PO Last administered on 02/06/19at 20:02; Admin Dose 80 MG; Start 02/02/19 at 21:00 Duloxetine HCl (Cymbalta) 60 mg DAILY PO Last administered on 02/07/19at 07:42; Admin Dose 60 MG; Start 02/03/19 at 09:00 Tamsulosin HCl (Flomax) 0.4 mg HS PO Last administered on 02/06/19at 20:02; Admin Dose 0.4 MG; Start 02/02/19 at 21:00 Miscellaneous Information 1 ea NOTE XX ; Start 02/02/19 at 19:30 Glucose (Glutose) 15 gm Q15M PRN PO DECREASED GLUCOSE; Start 02/02/19 at 19:30 Glucose (Glutose) 22.5 gm Q15M PRN PO DECREASED GLUCOSE; Start 02/02/19 at 19:30 Dextrose (D50w Syringe) 25 ml Q15M PRN IV DECREASED GLUCOSE; Start 02/02/19 at 19:30 Dextrose (D50w Syringe) 50 ml Q15M PRN IV DECREASED GLUCOSE; Start 02/02/19 at 19:30 Glucagon (Glucagen) 1 mg Q15M PRN IM DECREASED GLUCOSE; Start 02/02/19 at 19:30 Glucose (Glutose) 15 gm Q15M PRN BUCCAL DECREASED GLUCOSE; Start 02/02/19 at 19:30 Nitroglycerin (Nitroglycerin (Sl Tab) 0.4 Mg) 1 tab Q5M PRN SL ANGINA Last a dministered on 02/03/19 07:45; Admin Dose 1 TAB; Start 02/03/19 at 04:30 Morphine Sulfate (morphine) 1 mg Q2H PRN IV SEVERE PAIN LEVEL 7-10 Last administered on 02/03/19 07:51; Admin Dose 1 MG; Start 02/03/19 at 04:30 Isosorbide Dinitrate (Isordil) 10 mg TID PO Last administered on 02/06/19 20: 03; Admin Dose 10 MG; Start 02/03/19 at 21:00 Heparin Sodium (Porcine) (Heparin (5000 Units/1ml)) 5,000 unit BID SC Last administered on 02/07/19 07:49; Admin Dose 5,000 UNIT; Start 02/03/19 at 21:00 Acetaminophen (Tylenol Tab) 650 mg Q6H PRN PO MILD PAIN(1-3)OR ELEVATED TEMP Last administered on 02/06/19 17:19; Admin Dose 650 MG; Start 02/03/19 at 22:00 Clonidine (Catapres) 0.1 mg Q6H PRN PO HYPERTENSION Last administered on 02/04/19 12:11; Admin Dose 0.1 MG; Start 02/04/19 at 08:00 Lisinopril (Zestril) 40 mg DAILY PO Last administered on 02/06/19 09:26; Admin Dose 40 MG; Start 02/05/19 at 09:00 Hydralazine HCl (Apresoline) 10 mg Q4H PRN IV SBP > 170 Last administered on 02/07/19 05:12; Admin Dose 10 MG; Start 02/05/19 at 00:30 Insulin Glargine (Lantus) 14 units QHS SC Last administered on 02/06/19 20:12; Admin Dose 14 UNITS; Start 02/05/19 at 21:00 Carvedilol (Coreg) 6.25 mg BID PO Last administered on 4/21/19at 20:03; Admin Dose 6.25 MG; Start 02/05/19 at 21:00 Amlodipine Besylate (Norvasc) 10 mg DAILY PO ; Start 02/07/19 at 09:00 VTE Prophylaxis Risk score (from Nsg)>0 risk: 6 SCD applied (from Ns): Yes Lines/Catheters IV Catheter Type: Jackson in Place: No Assessment/Plan Hospital Course Subjective No chest pain, patient feeling well, no acute complaints Objective Physical exam General: Patient is laying in bed and answers questions appropriately Mentation: Patient is alert and oriented 4, Head: Normocephalic atraumatic Eyes: EOMI, pupils reactive to light Neck: Supple, nontender, midline Respiratory: Clear to auscultation bilaterally Cardiovascular: regular rate, no obvious murmurs Gastrointestinal: non-tender to palpation, bowel sounds heard. Neurological: Moves all extremities spontaneously Skin: No new skin lesions Assessment/Plan 1. CAD s/p LHC on 02/03/2019 with 3 vessel disease - Cardiology on board and appreciate recommends. Continue current treatment - CT surgery on board and plans for CABG on Thursday 2. Diabetes mellitus - A1c noted - continue on Lantus - ISS and accuchecks 3. Hypertension - stable - will adjust medications as needed 4. HLD - continue statin 5. BPH - continue on flomax 6. Disposition - Remains stable with plans for CABG Thursday VIKAS GALEANO Feb 07, 2019 10:23
--- NOTE | 2019-02-07 12:35 | PN ---
Date/Time of Note Date/Time of Note DATE: 02/07/19 TIME: 12:33 Assessment/Plan VTE Prophylaxis Risk score (from Ns)>0 risk: 6 SCD applied (from Nsg): Yes Pharmacological prophylaxis: NA/contraindicated (ambulating) Pharm contraindication: low risk/ambulating Lines/Catheters IV Catheter Type (from Nrs): Urinary Cath still in place: No Assessment/Plan Hospital Course Eating lunch. Feels well. OK for CABG tomorrow Result Diagram: 02/07/1952602/07/19526 Results 24hrs Laboratory Tests Test 02/06/19 17:17 02/06/19 19:55 02/07/19 01:46 02/07/19 05:27 Bedside Glucose 239 H 266 H 215 White Blood Count 6.4 Red Blood Count 4.23 L Hemoglobin 12.7 L Hematocrit 37.3 L Mean Corpuscular 88.2 Volume Mean Corpuscular 30.0 Hemoglobin Mean Corpuscular 34.0 Hemoglobin Concent Red Cell 13.3 Distribution Width Platelet Count 192 Mean Platelet Volume 9.8 Immature 0.300 Granulocytes % Neutrophils % 43.5 Lymphocytes % 38.2 Monocytes % 14.0 H Eosinophils % 3.5 Basophils % 0.5 Nucleated Red Blood 0.0 Cells % Immature 0.020 Granulocytes # Neutrophils # 2.8 Lymphocytes # 2.4 Monocytes # 0.9 Eosinophils # 0.2 Basophils # 0.0 Nucleated Red Blood 0.0 Cells # Sodium Level 138 Potassium Level 4.0 Chloride Level 102 Carbon Dioxide Level 28 Anion Gap 8 Blood Urea Nitrogen 15 Creatinine 0.66 Glucose Level 200 Calcium Level 9.0 Phosphorus Level 3.3 Magnesium Level 1.8 Albumin 3.6 Test 02/07/19 07:11 02/07/19 11:49 Bedside Glucose 210 236 H Exam/Review of Systems Exam Vitals Vital Signs Date Temp Pulse Resp B/P (MAP) Pulse Ox O2 O2 Flow FiO2 Time Delivery Rate 02/07/19 98.0 70 18 135/67 98 11:59 (89) 02/06/19 Room Air 20:01 02/03/19 3.0 15:50 Intake and Output 02/06/19 02/06/19 02/07/19 1515:00 23:00 07:00 IntakeIntake Total 720 ml 780 ml BalanceBalance 720 ml 780 ml Results Results 24hrs Laboratory Tests Test 02/06/19 17:17 02/06/19 19:55 02/07/19 01:46 02/07/19 05:27 Bedside Glucose 239 H 266 H 215 White Blood Count 6.4 Red Blood Count 4.23 L Hemoglobin 12.7 L Hematocrit 37.3 L Mean Corpuscular 88.2 Volume Mean Corpuscular 30.0 Hemoglobin Mean Corpuscular 34.0 Hemoglobin Concent Red Cell 13.3 Distribution Width Platelet Count 192 Mean Platelet Volume 9.8 Immature 0.300 Granulocytes % Neutrophils % 43.5 Lymphocytes % 38.2 Monocytes % 14.0 H Eosinophils % 3.5 Basophils % 0.5 Nucleated Red Blood 0.0 Cells % Immature 0.020 Granulocytes # Neutrophils # 2.8 Lymphocytes # 2.4 Monocytes # 0.9 Eosinophils # 0.2 Basophils # 0.0 Nucleated Red Blood 0.0 Cells # Sodium Level 138 Potassium Level 4.0 Chloride Level 102 Carbon Dioxide Level 28 Anion Gap 8 Blood Urea Nitrogen 15 Creatinine 0.66 Glucose Level 200 Calcium Level 9.0 Phosphorus Level 3.3 Magnesium Level 1.8 Albumin 3.6 Test 02/07/19 07:11 02/07/19 11:49 Bedside Glucose 210 236 H Medications Medication Current Medications Aspirin (Aspirin) 81 mg DAILY PO Last administered on 02/07/19at 07:42; Admin Dose 81 MG; Start 02/03/19 at 09:00 Insulin Aspart (Novolog Insulin Pen) NOVOLOG *MILD* ALGORITHM WITH MEALS BEDTIME SC Last administered on 02/07/19at 11:59; Admin Dose 3 UNIT; Start 02/02/19 at 18:00 Atorvastatin Calcium (Lipitor) 80 mg QHS PO Last administered on 02/06/19at 20:02; Admin Dose 80 MG; Start 02/02/19 at 21:00 Duloxetine HCl (Cymbalta) 60 mg DAILY PO Last administered on 02/07/19at 07:42; Admin Dose 60 MG; Start 02/03/19 at 09:00 Tamsulosin HCl (Flomax) 0.4 mg HS PO Last administered on 02/06/19at 20:02; Admin Dose 0.4 MG; Start 02/02/19 at 21:00 Miscellaneous Information 1 ea NOTE XX ; Start 02/02/19 at 19:30 Glucose (Glutose) 15 gm Q15M PRN PO DECREASED GLUCOSE; Start 02/02/19 at 19:30 Glucose (Glutose) 22.5 gm Q15M PRN PO DECREASED GLUCOSE; Start 02/02/19 at 19:30 Dextrose (D50w Syringe) 25 ml Q15M PRN IV DECREASED GLUCOSE; Start 02/02/19 at 19:30 Dextrose (D50w Syringe) 50 ml Q15M PRN IV DECREASED GLUCOSE; Start 02/02/19 at 19:30 Glucagon (Glucagen) 1 mg Q15M PRN IM DECREASED GLUCOSE; Start 02/02/19 at 19:30 Glucose (Glutose) 15 gm Q15M PRN BUCCAL DECREASED GLUCOSE; Start 02/02/19 at 19:30 Nitroglycerin (Nitroglycerin (Sl Tab) 0.4 Mg) 1 tab Q5M PRN SL ANGINA Last administered on 02/03/19 07:45; Admin Dose 1 TAB; Start 02/03/19 at 04:30 Morphine Sulfate (morphine) 1 mg Q2H PRN IV SEVERE PAIN LEVEL 7-10 Last administered on 02/03/19 07:51; Admin Dose 1 MG; Start 02/03/19 at 04:30 Isosorbide Dinitrate (Isordil) 10 mg TID PO Last administered on 02/07/19 09:00; Admin Dose 10 MG; Start 02/03/19 at 21:00 Heparin Sodium (Porcine) (Heparin (5000 Units/1ml)) 5,000 unit BID SC Last administered on 02/07/19 07:49; Admin Dose 5,000 UNIT; Start 02/03/19 at 21:00 Acetaminophen (Tylenol Tab) 650 mg Q6H PRN PO MILD PAIN(1-3)OR ELEVATED TEMP Last administered on 02/06/19 17:19; Admin Dose 650 MG; Start 02/03/19 at 22:00 Clonidine (Catapres) 0.1 mg Q6H PRN PO HYPERTENSION Last administered on 02/04/19 12:11; Admin Dose 0.1 MG; Start 02/04/19 at 08:00 Lisinopril (Zestril) 40 mg DAILY PO Last administered on 02/07/19 09:00; Admin Dose 40 MG; Start 02/05/19 at 09:00 Hydralazine HCl (Apresoline) 10 mg Q4H PRN IV SBP > 170 Last administered on 02/07/19at 05:12; Admin Dose 10 MG; Start 02/05/19 at 00:30 Insulin Glargine (Lantus) 14 units QHS SC Last administered on 02/06/19at 20:12; Admin Dose 14 UNITS; Start 02/05/19 at 21:00 Carvedilol (Coreg) 6.25 mg BID PO Last administered on 02/07/19at 09:00; Admin Dose 6.25 MG; Start 02/05/19 at 21:00 Amlodipine Besylate (Norvasc) 10 mg DAILY PO Last administered on 02/07/19at 09:00; Admin Dose 10 MG; Start 02/07/19 at 09:00 Magnesium Sulfate 100 ml @ 25 mls/hr ONCE ONCE IVPB ; Start 02/07/19 at 13:30; Stop 02/07/19 at 17:29 DOMINICK ARMSTRONG MD Feb 07, 2019 12:35
--- NOTE | 2019-02-07 13:15 | CONS ---
Assessment/Plan Assessment/Plan Hospital Course (Demo Recall) Three-vessel coronary artery disease left heart catheterization 02/02/2019 Diabetes Hypertension Dyslipidemia Preserved ejection fraction -Patient with three-vessel coronary artery disease. Tentative plan for CABG tomorrow -Continue aspirin and statin therapy, beta-frankie as heart rate and blood pressure permits, Isordil -Diabetes control Consultation Date/Type/Reason Admit Date/Time Feb 03, 2019 at 18:10 Initial Consult Date Type of Consult Cardiology Requesting Provider: Jd Santos DO Date/Time of Note DATE: 02/07/19 TIME: 13:14 24 HR Interval Summary Free Text/Dictation Denies shortness of breath, chest pain or palpitations Exam/Review of Systems Vital Signs Vitals Vital Signs Date Temp Pulse Resp B/P (MAP) Pulse Ox O2 O2 Flow FiO2 Time Delivery Rate 02/07/19 98.0 70 18 135/67 98 11:59 (89) 02/06/19 Room Air 20:01 02/03/19 3.0 15:50 Intake and Output 02/06/19 02/06/19 02/07/19 1515:00 23:00 07:00 IntakeIntake Total 720 ml 780 ml BalanceBalance 720 ml 780 ml Exam Constitutional: alert, oriented (No apparent distress) Head: normocephalic Respiratory: clear to auscultation, normal air movement Cardiovascular: regular rate and rhythm (S1-S2 heard) Gastrointestinal: soft, non-tender, bowel sounds Extremities: other (No significant edema) Labs Result Diagram: 02/07/19 0527 02/07/19 0527 Results 24hrs Laboratory Tests Test 02/06/19 17:17 02/06/19 19:55 02/07/19 01:46 02/07/19 05:27 Bedside Glucose 239 H 266 H 215 White Blood Count 6.4 Red Blood Count 4.23 L Hemoglobin 12.7 L Hematocrit 37.3 L Mean Corpuscular 88.2 Volume Mean Corpuscular 30.0 Hemoglobin Mean Corpuscular 34.0 Hemoglobin Concent Red Cell 13.3 Distribution Width Platelet Count 192 Mean Platelet Volume 9.8 Immature 0.300 Granulocytes % Neutrophils % 43.5 Lymphocytes % 38.2 Monocytes % 14.0 H Eosinophils % 3.5 Basophils % 0.5 Nucleated Red Blood 0.0 Cells % Immature 0.020 Granulocytes # Neutrophils # 2.8 Lymphocytes # 2.4 Monocytes # 0.9 Eosinophils # 0.2 Basophils # 0.0 Nucleated Red Blood 0.0 Cells # Sodium Level 138 Potassium Level 4.0 Chloride Level 102 Carbon Dioxide Level 28 Anion Gap 8 Blood Urea Nitrogen 15 Creatinine 0.66 Glucose Level 200 Calcium Level 9.0 Phosphorus Level 3.3 Magnesium Level 1.8 Albumin 3.6 Test 02/07/19 07:11 02/07/19 11:49 Bedside Glucose 210 236 H Medications Medications Current Medications Aspirin (Aspirin) 81 mg DAILY PO Last administered on 02/07/19 07:42; Admin Dose 81 MG; Start 02/03/19 at 09:00 Insulin Aspart (Novolog Insulin Pen) NOVOLOG *MILD* ALGORITHM WITH MEALS BEDTIME SC Last administered on 02/07/19 11:59; Admin Dose 3 UNIT; Start 02/02/19 at 18:00 Atorvastatin Calcium (Lipitor) 80 mg QHS PO Last administered on 02/06/19 20 :02; Admin Dose 80 MG; Start 02/02/19 at 21:00 Duloxetine HCl (Cymbalta) 60 mg DAILY PO Last administered on 02/07/19 07:42; Admin Dose 60 MG; Start 02/03/19 at 09:00 Tamsulosin HCl (Flomax) 0.4 mg HS PO Last administered on 02/06/19 20:02; Admin Dose 0.4 MG; Start 02/02/19 at 21:00 Miscellaneous Information 1 ea NOTE XX ; Start 02/02/19 at 19:30 Glucose (Glutose) 15 gm Q15M PRN PO DECREASED GLUCOSE; Start 02/02/19 at 19:30 Glucose (Glutose) 22.5 gm Q15M PRN PO DECREASED GLUCOSE; Start 02/02/19 at 19:30 Dextrose (D50w Syringe) 25 ml Q15M PRN IV DECREASED GLUCOSE; Start 02/02/19 at 19:30 Dextrose (D50w Syringe) 50 ml Q15M PRN IV DECREASED GLUCOSE; Start 02/02/19 at 19:30 Glucagon (Glucagen) 1 mg Q15M PRN IM DECREASED GLUCOSE; Start 02/02/19 at 19:30 Glucose (Glutose) 15 gm Q15M PRN BUCCAL DECREASED GLUCOSE; Start 02/02/19 at 19:30 Nitroglycerin (Nitroglycerin (Sl Tab) 0.4 Mg) 1 tab Q5M PRN SL ANGINA Last administered on 02/03/19 07:45; Admin Dose 1 TAB; Start 02/03/19 at 04:30 Morphine Sulfate (morphine) 1 mg Q2H PRN IV SEVERE PAIN LEVEL 7-10 Last administered on 02/03/19 07:51; Admin Dose 1 MG; Start 02/03/19 at 04:30 Isosorbide Dinitrate (Isordil) 10 mg TID PO Last administered on 02/07/19 09:00; Admin Dose 10 MG; Start 02/03/19 at 21:00 Heparin Sodium (Porcine) (Heparin (5000 Units/1ml)) 5,000 unit BID SC Last administered on 02/07/19 07:49; Admin Dose 5,000 UNIT; Start 02/03/19 at 21:00 Acetaminophen (Tylenol Tab) 650 mg Q6H PRN PO MILD PAIN(1-3)OR ELEVATED TEMP Last administered on 02/06/19 17:19; Admin Dose 650 MG; Start 02/03/19 at 22:00 Clonidine (Catapres) 0.1 mg Q6H PRN PO HYPERTENSION Last administered on 02/04/19 12:11; Admin Dose 0.1 MG; Start 02/04/19 at 08:00 Lisinopril (Zestril) 40 mg DAILY PO Last administered on 02/07/19 09:00; Admin Dose 40 MG; Start 02/05/19 at 09:00 Hydralazine HCl (Apresoline) 10 mg Q4H PRN IV SBP > 170 Last administered on 02/07/19 05:12; Admin Dose 10 MG; Start 02/05/19 at 00:30 Insulin Glargine (Lantus) 14 units QHS SC Last administered on 02/06/19 20:12; Admin Dose 14 UNITS; Start 02/05/19 at 21:00 Carvedilol (Coreg) 6.25 mg BID PO Last administered on 02/07/19 09:00; Admin Dose 6.25 MG; Start 02/05/19 at 21:00 Amlodipine Besylate (Norvasc) 10 mg DAILY PO Last administered on 02/07/19 0 9:00; Admin Dose 10 MG; Start 02/07/19 at 09:00 Magnesium Sulfate 100 ml @ 25 mls/hr ONCE ONCE IVPB ; Start 02/07/19 at 13:30; Stop 02/07/19 at 17:29 Cefazolin Sodium/ Dextrose 50 ml @ 100 mls/hr ONCE ONCE IVPB ; Start 02/08/19 at 11:00; Stop 02/08/19 at 11:29; Status Jd Pinto DO Feb 07, 2019 13:15
[2019-02-07] MEDS ORDERED: MAGNESIUM SULFATE 4 GM/100 ML 100 ML IVPB ONE (13:30)
[2019-02-07] MEDS: ACETAMINOPHEN 325 MG TAB PO PRN (13:40)
[2019-02-07] MEDS: ATORVASTATIN 80 MG TAB PO SCH (20:39)
[2019-02-07] MEDS: TAMSULOSIN (SR) 0.4 MG CAP PO SCH (20:39)
[2019-02-07] MEDS: INSULIN GLARGINE [LANTus] (100 UNITS/ML) SYG SC SCH (20:43)
[2019-02-08] VITALS (35 sets, daily range): BP systolic 101–186; BP diastolic 51–85; PULSE 53–95; RESP 12–21; TEMP 96.8–99
[2019-02-08] MEDS: INSULIN ASPART [NOVOLOG] 3 ML PEN SC SCH ×2 (08:15→11:44)
[2019-02-08] MEDS: LISINOPRIL 20 MG TAB PO SCH (09:00)
[2019-02-08] MEDS: DULOXETINE 30 MG CAP DR PO SCH (09:00)
[2019-02-08] MEDS: HEPARIN 5,000 UNIT/1 ML VIAL SC SCH (09:00)
[2019-02-08] MEDS: ISOSORBIDE DINITRATE 5 MG TAB PO SCH (09:00)
[2019-02-08] MEDS: AMLODIPINE 5 MG TAB PO SCH (09:00)
[2019-02-08] MEDS: ASPIRIN 81 MG TAB PO SCH (09:00)
[2019-02-08] MEDS ORDERED: PAPAVERINE 60 MG INJ ONE (10:00)
[2019-02-08] MEDS ORDERED: HEPARIN 1000 UNITS/ML 10 ML INJ ONE ×3 (10:01→12:34)
[2019-02-08] MEDS ORDERED: VANCOMYCIN 1 GM INJ ONE (10:02)
[2019-02-08] MEDS ORDERED: INSULIN HUMAN REGULAR 100 UNIT in SOD CHLORIDE 0.9% 99 ML IVPB ONE (11:00)
[2019-02-08] MEDS ORDERED: MILRINONE LACTATE 2 MG in SOD CHLORIDE 0.9% 50 ML IV ONE (11:00)
[2019-02-08] MEDS ORDERED: CEFAZOLIN 2 GM/50 ML (PMX) 50 ML IVPB ONE (11:00)
[2019-02-08] MEDS ORDERED: HEPARIN (10000 UNITS/ML) 10,000 UNIT, MILRINONE LACTATE 10 MG in SOD CHLORIDE 0.9% 1,00... SC ONE (11:00)
[2019-02-08] MEDS ORDERED: NORepinephrine 8MG/250 ML (PMX 250 ML IV ONE (11:00)
[2019-02-08] MEDS ORDERED: PHENYLephrine 20MG IN 250 ML 250 ML IV ONE (11:00)
[2019-02-08] MEDS ORDERED: EPINEPHrine 4 MG in DEXTROSE 5% 246 ML IV ONE (11:00)
[2019-02-08] MEDS ORDERED: ASPIRIN 600 MG SUPP PR ONE (11:00)
--- NOTE | 2019-02-08 12:18 | PREAC ---
Date/Time of Note Date/Time of Note DATE: 02/08/19 TIME: 12:16 Anesthesia Eval and Record Evaluation Time Pre-Procedure Interview DATE: 02/08/19 TIME: 12:16 Age 63 Sex male NPO: 8 hrs Preoperative diagnosis CAD Planned procedure [id number] Past Medical History Past Medical History: Includes Cardio: HTN, Dyslipidemia, [place], CAD, CHF Endo: Diabetes Pulm: Smoking Hx Hepatic: Other (h/o resected throat cancer) Surgery & Anesthesia Issues Significant blood loss Meds Anticoagulation: No Beta Irma within 24 hr: Yes Reason Beta Irma not given: Pt. not on B-Irma Reported Medications Insulin Glargine* (Lantus*) 100 Unit/Ml Soln, 12 UNIT SC QHS, #1 VIAL 02/02/19 Aspirin* (Aspirin*) 325 Mg Tablet, 325 MG PO DAILY, TAB 02/02/19 Duloxetine Hcl* (Duloxetine Hcl*) 60 Mg Capsule.dr, 60 MG PO DAILY, #30 CAP 02/02/19 Tamsulosin Hcl* (Tamsulosin Hcl*) 0.4 Mg Cap.er.24h, 0.4 MG PO HS, CAP 02/02/19 Atorvastatin* (Atorvastatin*) 80 Mg Tablet, 80 MG PO QHS, #30 TAB 02/02/19 Lisinopril* (Lisinopril*) 40 Mg Tablet, 40 MG PO DAILY, #30 TAB 02/02/19 Glipizide* (Glipizide*) 10 Mg Tablet, 10 MG PO DAILY, TAB 02/02/19 Carvedilol* (Carvedilol*) 6.25 Mg Tablet, 6.25 MG PO BID, #60 TAB 02/02/19 Metformin* (Glucophage*) 1,000 Mg Tablet, 1000 MG PO DAILY, #60 TAB 02/02/19 Current Medications Aspirin (Aspirin) 81 mg DAILY PO Last administered on 02/07/19at 07:42; Admin Dose 81 MG; Start 02/03/19 at 09:00 Insulin Aspart (Novolog Insulin Pen) NOVOLOG *MILD* ALGORITHM WITH MEALS BEDTIME SC Last administered on 02/08/19at 08:15; Admin Dose 2 UNIT; Start 02/02/19 at 18:00 Atorvastatin Calcium (Lipitor) 80 mg QHS PO Last administered on 02/07/19at 20:39; Admin Dose 80 MG; Start 02/02/19 at 21:00 Duloxetine HCl (Cymbalta) 60 mg DAILY PO Last administered on 02/07/19 07:42; Admin Dose 60 MG; Start 02/03/19 at 09:00 Tamsulosin HCl (Flomax) 0.4 mg HS PO Last administered on 02/07/19 20:39; Admin Dose 0.4 MG; Start 02/02/19 at 21:00 Miscellaneous Information 1 ea NOTE XX ; Start 02/02/19 at 19:30 Glucose (Glutose) 15 gm Q15M PRN PO DECREASED GLUCOSE; Start 02/02/19 at 19:30 Glucose (Glutose) 22.5 gm Q15M PRN PO DECREASED GLUCOSE; Start 02/02/19 at 19:30 Dextrose (D50w Syringe) 25 ml Q15M PRN IV DECREASED GLUCOSE; Start 02/02/19 at 19:30 Dextrose (D50w Syringe) 50 ml Q15M PRN IV DECREASED GLUCOSE; Start 02/02/19 at 19:30 Glucagon (Glucagen) 1 mg Q15M PRN IM DECREASED GLUCOSE; Start 02/02/19 at 19:30 Glucose (Glutose) 15 gm Q15M PRN BUCCAL DECREASED GLUCOSE; Start 02/02/19 at 19:30 Nitroglycerin (Nitroglycerin (Sl Tab) 0.4 Mg) 1 tab Q5M PRN SL ANGINA Last administered on 02/03/19 07:45; Admin Dose 1 TAB; Start 02/03/19 at 04:30 Morphine Sulfate (morphine) 1 mg Q2H PRN IV SEVERE PAIN LEVEL 7-10 Last administered on 02/03/19 07:51; Admin Dose 1 MG; Start 02/03/19 at 04:30 Isosorbide Dinitrate (Isordil) 10 mg TID PO Last administered on 02/07/19 20:39; Admin Dose 10 MG; Start 02/03/19 at 21:00 Heparin Sodium (Porcine) (Heparin (5000 Units/1ml)) 5,000 unit BID SC Last administered on 02/07/19 07:49; Admin Dose 5,000 UNIT; Start 02/03/19 at 21:00 Acetaminophen (Tylenol Tab) 650 mg Q6H PRN PO MILD PAIN(1-3)OR ELEVATED TEMP Last administered on 02/07/19 13:40; Admin Dose 650 MG; Start 02/03/19 at 22:00 Clonidine (Catapres) 0.1 mg Q6H PRN PO HYPERTENSION Last administered on 02/04/19 12:11; Admin Dose 0.1 MG; Start 02/04/19 at 08:00 Lisinopril (Zestril) 40 mg DAILY PO Last administered on 02/07/19 09:00; Admin Dose 40 MG; Start 02/05/19 at 09:00 Hydralazine HCl (Apresoline) 10 mg Q4H PRN IV SBP > 170 Last administered on 02/07/19 05:12; Admin Dose 10 MG; Start 02/05/19 at 00:30 Insulin Glargine (Lantus) 14 units QHS SC Last administered on 02/07/19 20:43; Admin Dose 14 UNITS; Start 02/05/19 at 21:00 Carvedilol (Coreg) 6.25 mg BID PO Last administered on 02/07/19 20:39; Admin Dose 6.25 MG; Start 02/05/19 at 21:00 Amlodipine Besylate (Norvasc) 10 mg DAILY PO Last administered on 02/07/19 09:00; Admin Dose 10 MG; Start 02/07/19 at 09:00 Meds reviewed: Yes Allergies Allergies Reviewed: Yes Labs/Studies Labs Reviewed: Reviewed by anesthesiologist Result Diagram: 02/08/19 0608 02/08/19 0608 Laboratory Tests 02/08/19 06:08 test: N/A Studies: ECG, CXR, Stress test, 2D Echo Pre-procedure Exam Last vitals Vital Signs Date Temp Pulse Resp B/P (MAP) Pulse Ox O2 O2 Flow FiO2 Time Delivery Rate 02/08/19 98.2 53 18 186/85 98 12:00 (118) 02/08/19 Room Air 04:15 Airway: Adequate mouth opening, Adequate thyromental dist Mallampati: Mallampati III Teeth: Normal Lung: Normal Heart: Normal ASA Physical Status ASA physical status: 4 Emergency: None Planned Anesthetic General/MAC: ETT, NG/OG Tube, A Line, CVP, PCWP, RANDY Planned Pain Management Parenteral pain med Pre-operative Attestations Prior to commencing anesthesia and surgery, the patient was re-evaluated, there was verification of: *The patient's identity *The results of appropriate recent lab work and preoperative vital signs *The above evaluation not changing prior to induction *Anesthetic plan, risk benefits, alternative and complications discussed with patient/family; questions answered; patient/family understands, accepts and wishes to proceed. ANNALISA WHIPPLE MD Feb 08, 2019 12:18
[2019-02-08] MEDS ORDERED: PROPOFOL 20 ML ONE ×2 (12:21→12:27)
[2019-02-08] MEDS ORDERED: LIDOCAINE 2% (SDV) 5 ML INJ ONE (12:21)
[2019-02-08] MEDS ORDERED: NITROGLYCERIN 50 MG/D5W (PMX) 250 ML ONE (12:21)
[2019-02-08] MEDS ORDERED: PROPOFOL 100 ML ONE (12:21)
[2019-02-08] MEDS ORDERED: ALBUMIN HUMAN 25% 200 ML ONE (12:22)
[2019-02-08] MEDS ORDERED: PHENYLephrine 10 MG INJ ONE ×2 (12:22→12:35)
[2019-02-08] MEDS ORDERED: AMINOCAPROIC ACID 5 GM INJ ONE ×2 (12:23→12:37)
[2019-02-08] MEDS ORDERED: MIDAZOLAM 5 ML ONE ×2 (12:24)
[2019-02-08] MEDS ORDERED: CEFAZOLIN 1 GM INJ ONE (12:24)
[2019-02-08] MEDS ORDERED: PROTAMINE 250 MG INJ ONE ×2 (12:26→15:43)
[2019-02-08] MEDS ORDERED: SUCCINYLCHOLINE CHLORIDE 100 MG/5 ML SYG IV ONE (12:27)
[2019-02-08] MEDS ORDERED: ROCURONIUM 50 MG INJ ONE (12:28)
[2019-02-08] MEDS ORDERED: HYDROmorphONE 0.5 MG/0.5 ML SYG IV PRN ×4 (12:30→17:00)
[2019-02-08] MEDS ORDERED: hydrALAzine 20 MG INJ IV PRN (12:30)
[2019-02-08] MEDS ORDERED: morphine 10 MG INJ IV PRN (12:30)
[2019-02-08] MEDS ORDERED: MIDAZOLAM 1 MG/ML 2 ML INJ IV PRN (12:30)
[2019-02-08] MEDS ORDERED: LEVALBUTEROL (NEB) 1.25 MG/0.5 ML AMP HHN PRN (12:30)
[2019-02-08] MEDS ORDERED: FENTAnyl 50 MCG/ML VIAL IV PRN ×3 (12:30)
[2019-02-08] MEDS ORDERED: IPRATROPIUM (NEB) 0.5 MG/2.5 ML AMP HHN PRN (12:30)
[2019-02-08] MEDS ORDERED: CA CHLORIDE 10% 10 ML SYRINGE ONE ×2 (12:30→12:36)
[2019-02-08] MEDS ORDERED: DIPHENHYDRAMINE 50 MG INJ IV PRN (12:30)
[2019-02-08] MEDS ORDERED: LABETALOL HCL 20MG INJ IV PRN (12:30)
[2019-02-08] MEDS ORDERED: HALOPERIDOL 5 MG INJ IV PRN (12:30)
[2019-02-08] MEDS ORDERED: MEPERIDINE 25 MG INJ IV PRN (12:30)
[2019-02-08] MEDS ORDERED: LORAZEPAM 2 MG INJ IV PRN (12:30)
[2019-02-08] MEDS ORDERED: NA BICARBONATE 8.4% 50 ML SYG ONE ×2 (12:30→12:35)
[2019-02-08] MEDS ORDERED: morphine 2 MG INJ IV PRN ×2 (12:30)
[2019-02-08] MEDS ORDERED: MAGNESIUM SULFATE (MG) 50% 10 ML INJ ONE (12:36)
[2019-02-08] MEDS ORDERED: POTASSIUM CHLORIDE 40 MEQ INJ ONE (12:36)
[2019-02-08] MEDS ORDERED: LIDOCAINE 100 MG SYRINGE ONE (12:36)
[2019-02-08] MEDS ORDERED: MANNITOL 20% 500 ML ONE (12:36)
[2019-02-08] MEDS ORDERED: FUROSEMIDE 20 MG INJ ONE (12:37)
--- NOTE | 2019-02-08 12:39 | HPN ---
Date/Time of Note Date/Time of Note DATE: 02/08/19 TIME: 12:39 Interval H&P Admission Note Pt. seen H&P reviewed: No system changes ELIAS SHANE MD Feb 08, 2019 12:39
--- NOTE | 2019-02-08 13:05 | CONS ---
Assessment/Plan Assessment/Plan Hospital Course (Demo Recall) Three-vessel coronary artery disease left heart catheterization 02/02/2019 Diabetes Hypertension Dyslipidemia Preserved ejection fraction -Patient with three-vessel coronary artery disease. Tentative plan for CABG today -Diabetes control Consultation Date/Type/Reason Admit Date/Time Feb 03, 2019 at 18:10 Initial Consult Date Type of Consult Cardiology Requesting Provider: Jd Santos DO Date/Time of Note DATE: 02/08/19 TIME: 13:04 24 HR Interval Summary Free Text/Dictation No chest pain, shortness of breath, palpitations Exam/Review of Systems Vital Signs Vitals Vital Signs Date Temp Pulse Resp B/P (MAP) Pulse Ox O2 O2 Flow FiO2 Time Delivery Rate 02/08/19 56 12:01 02/08/19 98.2 18 186/85 98 12:00 (118) 02/08/19 Room Air 04:15 Intake and Output 02/07/19 02/07/19 02/08/19 1515:00 23:00 07:00 IntakeIntake Total 1000 ml BalanceBalance 1000 ml Exam Constitutional: alert, oriented (No apparent distress) Head: normocephalic Neck: supple Respiratory: clear to auscultation, normal air movement Cardiovascular: regular rate and rhythm (S1-S2 heard) Gastrointestinal: soft, non-tender, bowel sounds Extremities: other (No significant edema) Labs Result Diagram: 02/08/19 0608 02/08/19 0608 Results 24hrs Laboratory Tests Test 02/07/19 17:41 02/07/19 20:36 02/08/19 02:08 02/08/19 06:08 Bedside Glucose 258 H 327 H 297 H White Blood Count 7.6 Red Blood Count 4.39 L Hemoglobin 13.0 L Hematocrit 38.4 L Mean Corpuscular 87.5 Volume Mean Corpuscular 29.6 Hemoglobin Mean Corpuscular 33.9 Hemoglobin Concent Red Cell 13.3 Distribution Width Platelet Count 210 Mean Platelet Volume 9.9 Immature 0.300 Granulocytes % Neutrophils % 48.8 Lymphocytes % 34.4 Monocytes % 12.1 H Eosinophils % 4.0 Basophils % 0.4 Nucleated Red Blood 0.0 Cells % Immature 0.020 Granulocytes # Neutrophils # 3.7 Lymphocytes # 2.6 Monocytes # 0.9 Eosinophils # 0.3 Basophils # 0.0 Nucleated Red Blood 0.0 Cells # Sodium Level 139 Potassium Level 4.3 Chloride Level 104 Carbon Dioxide Level 27 Anion Gap 8 Blood Urea Nitrogen 20 Creatinine 0.66 Est Glomerular > 60 Filtrat Rate mL/min Glucose Level 200 Calcium Level 9.5 Phosphorus Level 4.0 Magnesium Level 2.0 Test 02/08/19 08:08 02/08/19 11:42 Bedside Glucose 196 178 Medications Medications Current Medications Aspirin (Aspirin) 81 mg DAILY PO Last administered on 02/07/19 07:42; Admin Dose 81 MG; Start 02/03/19 at 09:00 Insulin Aspart (Novolog Insulin Pen) NOVOLOG *MILD* ALGORITHM WITH MEALS BEDTIME SC Last administered on 02/08/19 08:15; Admin Dose 2 UNIT; Start 02/02/19 at 18:00 Atorvastatin Calcium (Lipitor) 80 mg QHS PO Last administered on 02/07/19at 20:39; Admin Dose 80 MG; Start 02/02/19 at 21:00 Duloxetine HCl (Cymbalta) 60 mg DAILY PO Last administered on 02/07/19 07:42; Admin Dose 60 MG; Start 02/03/19 at 09:00 Tamsulosin HCl (Flomax) 0.4 mg HS PO Last administered on 02/07/19 20:39; Admin Dose 0.4 MG; Start 02/02/19 at 21:00 Miscellaneous Information 1 ea NOTE XX ; Start 02/02/19 at 19:30 Glucose (Glutose) 15 gm Q15M PRN PO DECREASED GLUCOSE; Start 02/02/19 at 19:30 Glucose (Glutose) 22.5 gm Q15M PRN PO DECREASED GLUCOSE; Start 02/02/19 at 19:30 Dextrose (D50w Syringe) 25 ml Q15M PRN IV DECREASED GLUCOSE; Start 02/02/19 at 19:30 Dextrose (D50w Syringe) 50 ml Q15M PRN IV DECREASED GLUCOSE; Start 02/02/19 at 19:30 Glucagon (Glucagen) 1 mg Q15M PRN IM DECREASED GLUCOSE; Start 02/02/19 at 19:30 Glucose (Glutose) 15 gm Q15M PRN BUCCAL DECREASED GLUCOSE; Start 02/02/19 at 19:30 Nitroglycerin (Nitroglycerin (Sl Tab) 0.4 Mg) 1 tab Q5M PRN SL ANGINA Last administered on 02/03/19 07:45; Admin Dose 1 TAB; Start 02/03/19 at 04:30 Morphine Sulfate (morphine) 1 mg Q2H PRN IV SEVERE PAIN LEVEL 7-10 Last administered on 02/03/19 07:51; Admin Dose 1 MG; Start 02/03/19 at 04:30 Isosorbide Dinitrate (Isordil) 10 mg TID PO Last administered on 02/07/19 20:39; Admin Dose 10 MG; Start 02/03/19 at 21:00 Heparin Sodium (Porcine) (Heparin (5000 Units/1ml)) 5,000 unit BID SC Last adm inistered on 02/07/19 07:49; Admin Dose 5,000 UNIT; Start 02/03/19 at 21:00 Acetaminophen (Tylenol Tab) 650 mg Q6H PRN PO MILD PAIN(1-3)OR ELEVATED TEMP Last administered on 02/07/19 13:40; Admin Dose 650 MG; Start 02/03/19 at 22:00 Clonidine (Catapres) 0.1 mg Q6H PRN PO HYPERTENSION Last administered on 02/04/19 12:11; Admin Dose 0.1 MG; Start 02/04/19 at 08:00 Lisinopril (Zestril) 40 mg DAILY PO Last administered on 02/07/19 09:00; Admin Dose 40 MG; Start 02/05/19 at 09:00 Hydralazine HCl (Apresoline) 10 mg Q4H PRN IV SBP > 170 Last administered on 02/07/19 05:12; Admin Dose 10 MG; Start 02/05/19 at 00:30 Insulin Glargine (Lantus) 14 units QHS SC Last administered on 02/07/19 20:43; Admin Dose 14 UNITS; Start 02/05/19 at 21:00 Carvedilol (Coreg) 6.25 mg BID PO Last administered on 02/07/19 20:39; Admin Dose 6.25 MG; Start 02/05/19 at 21:00 Amlodipine Besylate (Norvasc) 10 mg DAILY PO Last administered on 02/07/19 09:00; Admin Dose 10 MG; Start 02/07/19 at 09:00 Morphine Sulfate (morphine) 2 mg ICU RECOVERY PRN IV .MILD PAIN LEVEL 1-3; Start 02/08/19 at 12:30; Stop 02/08/19 at 15:30; Status UNV Morphine Sulfate (morphine) 4 mg ICU RECOVERY PRN IV MODERATE PAIN LEVEL 4-6; Start 02/08/19 at 12:30; Stop 02/08/19 at 15:30; Status UNV Morphine Sulfate (morphine) 6 mg ICU RECOVERY PRN IV SEVERE PAIN LEVEL 7-10; Start 02/08/19 at 12:30; Stop 02/08/19 at 15:30; Status UNV Hydromorphone HCl (Dilaudid) 0.2 mg ICU RECOVERY PRN IV MILD PAIN LEVEL 1-3; Start 02/08/19 at 12:30; Stop 02/08/19 at 15:30; Status UNV Hydromorphone HCl (Dilaudid) 0.4 mg ICU RECOVERY PRN IV MODERATE PAIN LEVEL 4-6; Start 02/08/19 at 12:30; Stop 02/08/19 at 15:30; Status UNV Hydromorphone HCl (Dilaudid) 0.6 mg ICU RECOVERY PRN IV SEVERE PAIN LEVEL 7-10; Start 02/08/19 at 12:30; Stop 02/08/19 at 15:30; Status UNV Fentanyl (Sublimaze) 25 mcg ICU RECOVERY PRN IV MILD PAIN LEVEL 1-3; Start 02/08/19 at 12:30; Stop 02/08/19 at 15:30; Status UNV Fentanyl (Sublimaze) 50 mcg ICU RECOVERY PRN IV MODERATE PAIN LEVEL 4-6; Start 02/08/19 at 12:30; Stop 02/08/19 at 15:30; Status UNV Fentanyl (Sublimaze) 75 mcg ICU RECOVERY PRN IV SEVERE PAIN LEVEL 7-10; Start 02/08/19 at 12:30; Stop 02/08/19 at 15:30; Status UNV Haloperidol (Haldol) 1 mg ICU RECOVERY PRN IV NAUSEA AND/OR VOMITING; Start 02/08/19 at 12:30; Stop 02/08/19 at 15:30; Status UNV Labetalol HCl (Labetalol) 5 mg ICU RECOVERY PRN IV HIGH BLOOD PRESSURE; Start 02/08/19 at 12:30; Stop 02/08/19 at 15:30; Status UNV Hydralazine HCl (Apresoline) 5 mg ICU RECOVERY PRN IV HIGH BLOOD PRESSURE; Start 02/08/19 at 12:30; Stop 02/08/19 at 15:30; Status UNV Levalbuterol (Xopenex Neb) 1.25 mg ICU RECOVERY PRN HHN .WHEEZING; Start at 12:30; Stop 02/08/19 at 15:30; Status UNV Ipratropium [place] (Atrovent 0.02% (Neb)) 0.5 mg ICU RECOVERY PRN HHN .WHEEZING; Start 02/08/19 at 12:30; Stop 02/08/19 at 15:30; Status UNV Meperidine HCl (Demerol) 25 mg ICU RECOVERY PRN IV .RIGORS; Start 02/08/19 at 12:30; Stop 02/08/19 at 15:30; Status UNV Diphenhydramine HCl (Benadryl) 25 mg ICU RECOVERY PRN IV .PRURITUS; Start 02/08/19 at 12:30; Stop 02/08/19 at 15:30; Status UNV Lorazepam (Ativan) 1 mg ICU RECOVERY PRN IV .ANXIETY; Start 02/08/19 at 12:30; Stop 02/08/19 at 15:30; Status UNV Midazolam HCl (Versed) 0.5 mg ICU RECOVERY PRN IV .ANXIETY; Start 02/08/19 at 12:30; Stop 02/08/19 at 15:30; Status UNV Jd Santos DO Feb 08, 2019 13:05
[2019-02-08] MEDS ORDERED: EPHEDrine 50 MG INJ ONE ×5 (13:21→14:50)
[2019-02-08] MEDS ORDERED: SODIUM CL BACTERIOSTATIC 30 ML INJ ONE (13:23)
[2019-02-08] MEDS ORDERED: morphine 10 MG INJ ONE (13:39)
--- NOTE | 2019-02-08 16:48 | SIPON ---
Date/Time of Note Date/Time of Note DATE: 02/08/19 TIME: 16:47 Operative Report Preoperative Diagnosis 3v CAD Postoperative Diagnosis same Operation/Procedure Performed CABGx3. liima to lad, svg to distal RCA, svg to distal OM Surgeon see signature line human resource assistant Ivette SWAN Anesthesia: general Estimated blood loss: 250 - 300 ml's Transfusion Required none Specimen none Grafts/Implants none Complications none ELIAS SHANE MD Feb 08, 2019 16:48
[2019-02-08] MEDS ORDERED: DOPamine-D5W 1.6 MG/ML 250 ML IV SCH (17:00)
[2019-02-08] MEDS ORDERED: DEXTROSE 50% 50 ML SYRINGE IV PRN ×2 (17:00)
[2019-02-08] MEDS: ACCU-CHEK XX SCH ×7 (17:00→22:59)
[2019-02-08] MEDS ORDERED: NITROGLYCERIN 50 MG/D5W (PMX) 250 ML IV SCH (17:00)
[2019-02-08] MEDS ORDERED: MAGNESIUM SULFATE 1 GM/D5W 100 ML IVPB PRN (17:00)
[2019-02-08] MEDS ORDERED: ONDANSETRON 4 MG INJ IV PRN (17:00)
[2019-02-08] MEDS ORDERED: PANTOPRAZOLE 40 MG INJ IV SCH (18:00)
[2019-02-08] MEDS: PROPOFOL 100 ML IV SCH (18:24)
[2019-02-08] MEDS: niCARdipine-NS 0.1MG/ML DRIP 200 ML IV SCH ×2 (18:26→19:41)
[2019-02-08] MEDS: INSULIN HUMAN REGULAR 100 UNIT in SOD CHLORIDE 0.9% 99 ML IV SCH (18:29)
[2019-02-08] MEDS: POTASSIUM CHLORIDE 50 ML IVPB PRN ×2 (18:54→19:41)
[2019-02-08] MEDS: HYDROmorphONE 0.5 MG/0.5 ML SYG IV PRN ×2 (19:18→19:53)
[2019-02-08] MEDS: FAMOTIDINE 20 MG INJ IV SCH (19:53)
[2019-02-08] MEDS: POTASSIUM CHLORIDE 40 MEQ, CALCIUM CHLORIDE 10% 1 GM in DEXTROSE 5%-0.225% NACL 1,000 ML IV SCH (20:24)
[2019-02-08] MEDS: CEFAZOLIN 1 GM/50 ML (PMX) 50 ML IVPB SCH (20:25)
[2019-02-08] MEDS: KETOROLAC 15 MG INJ IV PRN (22:16)
[2019-02-09] VITALS (58 sets, daily range): BP systolic 91–165; BP diastolic 57–87; PULSE 70–99; RESP 17–33; TEMP 98.8–98.9
[2019-02-09] MEDS ORDERED: traMADol 50 MG TAB PO PRN
[2019-02-09] MEDS: traMADol 50 MG TAB PO PRN ×3 (00:36→14:52)
[2019-02-09] MEDS: ACCU-CHEK XX SCH ×13 (01:00→12:00)
[2019-02-09] MEDS: CEFAZOLIN 1 GM/50 ML (PMX) 50 ML IVPB SCH ×2 (03:26→12:07)
[2019-02-09] MEDS: KETOROLAC 15 MG INJ IV PRN ×4 (04:08→22:42)
[2019-02-09] MEDS: PROPOFOL 100 ML IV SCH (04:25)
[2019-02-09] MEDS ORDERED: traMADol 50 MG TAB PO ONE (05:30)
[2019-02-09] MEDS: INSULIN HUMAN REGULAR 100 UNIT in SOD CHLORIDE 0.9% 99 ML IV SCH (08:09)
[2019-02-09] MEDS: FAMOTIDINE 20 MG INJ IV SCH ×2 (08:10→20:19)
[2019-02-09] MEDS: ACETAMINOPHEN 325 MG TAB PO PRN (08:49)
[2019-02-09] MEDS: ASPIRIN 325 MG TAB PO SCH (08:49)
[2019-02-09] MEDS: ENOXAPARIN 40 MG/0.4 ML SYG SC SCH (08:51)
--- NOTE | 2019-02-09 09:26 | PN ---
Date/Time of Note Date/Time of Note DATE: 02/09/19 TIME: 09:25 Assessment/Plan Lines/Catheters IV Catheter Type (from [facility]): Saline Lock Luna in Place (from [facility]): Yes Assessment/Plan Assessment/Plan extubated, NSR. start beta blockers. remove luna and lines Exam/Review of Systems Vital Signs Vitals Vital Signs Date Temp Pulse Resp B/P (MAP) Pulse Ox O2 O2 Flow FiO2 Time Delivery Rate 02/09/19 87 27 148/73 99 Nasal 2.0 08:15 (98) Cannula 02/09/19 98.8 08:00 02/09/19 39 05:57 Intake and Output 02/08/19 02/08/19 02/09/19 1515:00 23:00 07:00 IntakeIntake Total 3424.921 ml 930 ml OutputOutput Total 2086 ml 991 ml BalanceBalance 1338.921 ml -61 ml Results Result Diagram: 02/09/19 0400 02/09/19 0400 ELIAS SHANE MD Feb 09, 2019 09:26
[2019-02-09] MEDS ORDERED: FUROSEMIDE 20 MG INJ IV ONE (10:00)
--- NOTE | 2019-02-09 10:33 | PN ---
Date/Time of Note Date/Time of Note DATE: 02/09/19 TIME: 10:32 Objective Vitals Vital Signs Date Temp Pulse Resp B/P (MAP) Pulse Ox O2 O2 Flow FiO2 Time Delivery Rate 02/09/19 87 27 148/73 99 Nasal 2.0 08:15 (98) Cannula 02/09/19 98.8 08:00 02/09/19 39 05:57 Intake and Output 02/08/19 02/08/19 02/09/19 1515:00 23:00 07:00 IntakeIntake Total 3424.921 ml 930 ml OutputOutput Total 2086 ml 991 ml BalanceBalance 1338.921 ml -61 ml Results Result Diagram: 02/09/19 0400 02/09/19 0400 Medications Medications Current Medications Diagnostic Test (Pha) (Accu-Chek) 1 ea Q1H XX Last administered on 02/09/19at 08:39; Admin Dose 1 EA; Start 02/08/19 at 17:00 Miscellaneous Information (* Miscellaneous Pharmacy Order) Treatment of Hypoglycemia: 1.BG 51... Per protocol XX ; Start 02/08/19 at 17:00 Dextrose (D50w Syringe) 25 ml Q15M PRN IV .DECREASED GLUCOSE; Start 02/08/19 at 17:00 Dextrose (D50w Syringe) 50 ml Q15M PRN IV .DECREASED GLUCOSE; Start 02/08/19 at 17:00 Potassium Chloride 40 meq/ Calcium Chloride 1 gm/Dextrose/ Sodium Chloride 1,030 ml @ 60 mls/hr [id number] IV Last administered on 02/08/19at 20:24; Admin Dose 60 MLS/HR; Start 02/08/19 at 19:00 Cefazolin Sodium 50 ml @ 100 mls/hr Q8H IVPB Last administered on 02/09/19at 03:26; Admin Dose 100 MLS/HR; Start 02/08/19 at 20:00; Stop 02/09/19 at 12:29 Hydromorphone HCl (Dilaudid) 0.2 mg Q15M PRN IV PAIN LEVEL 1-5 Last adminis tered on 02/08/19at 22:40; Admin Dose 0.2 MG; Start 02/08/19 at 17:00 Hydromorphone HCl (Dilaudid) 0.4 mg Q15M PRN IV PAIN LEVEL 6-10 Last administered on 02/08/19 19:53; Admin Dose 0.4 MG; Start 02/08/19 at 17:00 Ondansetron HCl (Zofran Inj) 4 mg Q6H PRN IV NAUSEA AND/OR VOMITING; Start 02/08/19 at 17:00 Famotidine (Pepcid Iv) 20 mg BID@08,20 IV Last administered on 02/09/19 08:10; Admin Dose 20 MG; Start 02/08/19 at 20:00 Aspirin (Aspirin) 325 mg DAILY PO Last administered on 02/09/19 08:49; Admin Dose 325 MG; Start 02/09/19 at 09:00 Acetaminophen (Tylenol Tab) 650 mg Q3H PRN PO ELEVATED TEMPERATURE Last administered on 02/09/19 08:49; Admin Dose 650 MG; Start 02/08/19 at 17:00 Potassium Chloride 50 ml @ 50 mls/hr SEE DIRECTION PRN IVPB K+ LEVEL Last administered on 02/08/19 19:41; Admin Dose 50 MLS/HR; Start 02/08/19 at 17:00 Magnesium Sulfate/ Dextrose 100 ml @ 100 mls/hr PRN PRN IVPB PENDING LAB VALUE; Start 02/08/19 at 17:00 Nitroglycerin/ Dextrose 250 ml @ 1.5 mls/hr PER PROTOCOL IV ; Start 02/08/19 at 17:00 Dopamine HCl/ Dextrose 250 ml @ 8.933 mls/ hr PER PROTOCOL IV ; Start 02/08/19 at 17:00 Enoxaparin Sodium (Lovenox) 40 mg DAILY SC Last administered on 02/09/19at 08:51; Admin Dose 40 MG; Start 02/09/19 at 09:00 Ketorolac Tromethamine (Toradol) 15 mg Q6H PRN IV PAIN Last administered on 02/09/19 09:58; Admin Dose 15 MG; Start 02/08/19 at 17:00; Stop 02/11/19 at 16:59 Nicardipine HCl 200 ml @ 50 mls/hr TITRATE IV Last administered on 02/08/19at 19:41; Admin Dose 30 MLS/HR; Start 02/08/19 at 17:30 Propofol 100 ml @ 3.573 mls/ hr Q12H IV Last administered on 02/08/19at 18:24; Admin Dose 17.865 MLS/HR; Start 02/08/19 at 17:30 Tramadol HCl (Ultram) 50 mg Q6H PRN PO MODERATE PAIN LEVEL 4-6 Last administered on 02/09/19at 05:36; Admin Dose 50 MG; Start 02/09/19 at 00:30 Metoprolol Tartrate (Lopressor) 25 mg BID PO ; Start 02/09/19 at 21:00 Atorvastatin Calcium (Lipitor) 40 mg HS PO ; Start 02/09/19 at 21:00 Diagnostic Test (Pha) (Accu-Chek) 1 ea 02 XX ; Start 02/10/19 at 02:00 Miscellaneous Information (* Miscellaneous Pharmacy Order) HYPOGLYCEMIA PROTOCOL w... ONCE ONCE XX ; Start 02/09/19 at 10:00; Stop 02/09/19 at 10:01; Status UNV Insulin Aspart (Novolog Insulin Pen) NOVOLOG *MODERATE* ALGORITHM WITH MEALS BEDTIME SC ; Start 02/09/19 at 11:30; Status UNV Insulin Glargine (Lantus) 10 units DAILY@2000 SC ; Start 02/09/19 at 20:00 VTE Prophylaxis Risk score (from Nsg)>0 risk: 11 SCD applied (from Nsg): No SCD contraindication: other Lines/Catheters IV Catheter Type: Jackson in Place: No Assessment/Plan Hospital Course Subjective Patient doing well after CABG, extubated, sitting in chair Objective Physical exam General: Patient is laying in bed and answers questions appropriately Mentation: Patient is alert and oriented 4, Head: Normocephalic atraumatic Eyes: EOMI, pupils reactive to light Neck: Supple, nontender, midline Respiratory: Clear to auscultation bilaterally Cardiovascular: regular rate, no obvious murmurs Gastrointestinal: non-tender to palpation, bowel sounds heard. Neurological: Moves all extremities spontaneously Skin: Surgical site bandaged Assessment/Plan 1. CAD s/p LHC on 02/03/2019 with 3 vessel disease, s/p 3V CABG on 02/08/19 - Cardiology on board and appreciate recommends. Continue current treatment - CT surgery recs appreciated 2. Diabetes mellitus - A1c noted - continue on Lantus - ISS and accuchecks 3. Hypertension - stable - will adjust medications as needed 4. HLD - continue statin 5. BPH - continue on flomax when tolerating 6. Disposition - cardiology/CT surgery recs appreciated -More than 40 minutes have been spent on this encounter, continue ICU treatment until okay with cardiothoracic surgery to downgrade VIKAS GALEANO Feb 09, 2019 10:33
[2019-02-09] MEDS ORDERED: GLUCOSE GEL 15 GRAM TUBE PO PRN ×2 (11:00)
[2019-02-09] MEDS ORDERED: DEXTROSE 50% 50 ML SYRINGE IV PRN ×2 (11:00)
[2019-02-09] MEDS ORDERED: GLUCAGON 1 MG INJ IM PRN (11:00)
[2019-02-09] MEDS ORDERED: GLUCOSE GEL 15 GRAM TUBE BUCCAL PRN (11:00)
[2019-02-09] MEDS: INSULIN ASPART [NOVOLOG] 3 ML PEN SC SCH ×3 (12:10→20:36)
[2019-02-09] MEDS: POTASSIUM CHLORIDE 40 MEQ, CALCIUM CHLORIDE 10% 1 GM in DEXTROSE 5%-0.225% NACL 1,000 ML IV SCH (15:06)
--- NOTE | 2019-02-09 16:36 | CONS ---
Assessment/Plan Assessment/Plan Assessment/Plan (Daily) Three-vessel coronary artery disease left heart catheterization 02/02/2019 - s/p CABG Diabetes Hypertension Dyslipidemia Preserved ejection fraction -s/p CABG -Diabetes control -CTS involved -add zestril Consultation Date/Type/Reason Admit Date/Time Feb 03, 2019 at 18:10 Initial Consult Date Type of Consult Cardiology Requesting Provider: Jd Santos DO Date/Time of Note DATE: 02/09/19 TIME: 16:34 24 HR Interval Summary Free Text/Dictation the apteint stable post cabg Exam/Review of Systems Vital Signs Vitals Vital Signs Date Temp Pulse Resp B/P (MAP) Pulse Ox O2 O2 Flow FiO2 Time Delivery Rate 02/09/19 77 28 141/71 98 16:15 (94) 02/09/19 98.4 Room Air 16:00 02/09/19 2.0 11:18 02/09/19 39 05:57 Intake and Output 02/08/19 02/08/19 02/09/19 1515:00 23:00 07:00 IntakeIntake Total 3424.921 ml 930 ml OutputOutput Total 2086 ml 991 ml BalanceBalance 1338.921 ml -61 ml Labs Result Diagram: 02/09/19 0400 02/09/19 0400 Results 24hrs Laboratory Tests Test 02/08/19 16:50 02/08/19 17:00 02/08/19 17:55 02/08/19 17:57 Blood Gas Blood arterial BLMV Specimen Source Arterial Blood 02/08/2019 6:00: 02/08/2019 6:04 Date Drawn 38 PM :20 PM Arterial Blood 7.399 pH (Temp corrected ) Arterial Blood 39.7 pCO2 (Temp correct) Arterial Blood 110.2 H pO2 (Temp corrected ) Arterial Blood 24.0 HCO3 Arterial Blood -0.7 Base Excess Arterial Blood 97.2 Oxygen Saturati on Kingsley Test N/A N/A Arterial Blood A-Line VENOUS LINE Gas Puncture Site Arterial 0.3 Blood Carboxyhe moglobin Arterial Blood 0.3 Methemoglobin Blood Gas A-a 346.2 H O2 Differential Oxyhemoglobin 96.6 Percent Blood Gas 37.0 37.0 Temperature Blood Gas 14.0 14.0 Respiration Rate Blood Gas 14 14 Actual Respiration Rat e Blood Gas VENT - AC VENT - AC Modality FiO2 70.0 70.0 Blood Gas Tidal 700.0 700.0 Volume Blood Gas Low 5.0 5.0 PEEP Setting Blood Gas Mark Awan, [employer] P Lv, [employer] Notified Whom Blood Gas 02/08/2019 6:18: 02/08/2019 6:21 Notified Time 32 PM :02 PM White Blood 11.4 #H Count Red Blood Count 3.30 #L Hemoglobin 10.0 #L Hematocrit 29.2 #L Mean 88.5 Corpuscular Volume Mean 30.3 Corpuscular Hemoglobin Mean 34.2 Corpuscular Hemoglobin Conc ent Red Cell 13.2 Distribution Width Platelet Count 132 #L Mean Platelet 9.1 Volume Immature 0.500 H Granulocytes % Neutrophils % 76.6 Lymphocytes % 14.2 L Monocytes % 7.3 Eosinophils % 1.1 Basophils % 0.3 Nucleated Red 0.0 Blood Cells % Immature 0.060 H Granulocytes # Neutrophils # 8.8 H Lymphocytes # 1.6 Monocytes # 0.8 Eosinophils # 0.1 Basophils # 0.0 Nucleated Red 0.0 Blood Cells # Prothrombin 15.8 H Time Prothrombin 1.2 Time Ratio INR 1.25 International Normalized Rati o Activated 26.2 Partial Thrombo plast Time Sodium Level 141 Potassium Level 4.1 Chloride Level 108 Carbon Dioxide 25 Level Anion Gap 8 Blood Urea 17 Nitrogen Creatinine 0.82 Est Glomerular > 60 Filtrat Rate mL/min Glucose Level 147 # Bedside Glucose 158 166 Calcium Level 9.2 Magnesium Level 2.7 H Mixed Venous 7.384 Blood pH Mixed Venous 42.5 Blood PCO2 Mixed Venous 45.0 H Blood PO2 Mixed Venous 24.8 Blood HCO3 Mixed Venous -0.3 Blood Base Excess Mixed Venous 77.8 H Blood O2 Saturation Mixed Venous 11.3 Blood Total Hemoglobi n Mixed Venous 77.3 Blood Oxyhemogl obin Mixed Venous 0.3 Bld Carboxyhemo globin Mixed Venous 0.3 Blood Methemogl obin Test 02/08/19 19:12 02/08/19 20:13 02/08/19 20:48 02/08/19 22:00 Bedside Glucose 170 185 183 199 Test 02/08/19 22:15 02/08/19 22:56 02/08/19 23:55 02/09/19 01:02 Blood Gas Blood arterial Specimen Source Arterial Blood 02/08/2019 10:12 Date Drawn :58 PM Arterial Blood 7.349 L pH (Temp corrected ) Arterial Blood 43.0 pCO2 (Temp correct) Arterial Blood 105.1 H pO2 (Temp corrected ) Arterial Blood 23.2 HCO3 Arterial Blood -2.4 Base Excess Arterial Blood 96.9 Oxygen Saturati on Kingsley Test N/A Arterial Blood A-Line Gas Puncture Site Arterial 0.3 Blood Carboxyhe moglobin Arterial Blood 0.3 Methemoglobin Blood Gas A-a 130.7 H O2 Differential Oxyhemoglobin 96.3 Percent Blood Gas 37.0 Temperature Blood Gas 17 Actual Respiration Rat e Blood Gas VENT - CPAP Modality FiO2 40.0 Blood Gas Low 5.0 PEEP Setting Blood Gas 6 Pressure Support Blood Gas MG Notified Whom Blood Gas 02/08/2019 10:17 Notified Time :49 PM Bedside Glucose 193 166 172 Test 02/09/19 03:07 02/09/19 04:00 02/09/19 04:58 02/09/19 07:04 Bedside Glucose 145 113 115 White Blood 8.6 # Count Red Blood Count 3.62 L Hemoglobin 10.7 L Hematocrit 32.5 L Mean 89.8 Corpuscular Volume Mean 29.6 Corpuscular Hemoglobin Mean 32.9 Corpuscular Hemoglobin Conc ent Red Cell 13.8 Distribution Width Platelet Count 165 # Mean Platelet 10.1 Volume Immature 0.500 H Granulocytes % Neutrophils % 76.7 Lymphocytes % 11.2 L Monocytes % 11.3 H Eosinophils % 0.1 Basophils % 0.2 Nucleated Red 0.0 Blood Cells % Immature 0.040 H Granulocytes # Neutrophils # 6.6 Lymphocytes # 1.0 Monocytes # 1.0 H Eosinophils # 0.0 Basophils # 0.0 Nucleated Red 0.0 Blood Cells # Prothrombin 14.2 Time Prothrombin 1.1 Time Ratio INR 1.09 International Normalized Rati o Activated 27.0 Partial Thrombo plast Time Sodium Level 141 Potassium Level 4.5 Chloride Level 109 Carbon Dioxide 24 Level Anion Gap 8 Blood Urea 19 Nitrogen Creatinine 0.86 Est Glomerular > 60 Filtrat Rate mL/min Glucose Level 109 Calcium Level 9.1 Magnesium Level 2.2 Test 02/09/19 07:58 02/09/19 09:24 02/09/19 10:03 02/09/19 12:03 Bedside Glucose 119 218 279 H Lab Scanned REFERENCE LAB Report Medications Medications Current Medications Miscellaneous Information (* Miscellaneous Pharmacy Order) Treatment of Hypoglycemia: 1.BG 51... Per protocol XX ; Start 02/08/19 at 17:00 Dextrose (D50w Syringe) 25 ml Q15M PRN IV .DECREASED GLUCOSE; Start 02/08/19 at 17:00 Dextrose (D50w Syringe) 50 ml Q15M PRN IV .DECREASED GLUCOSE; Start 02/08/19 at 17:00 Hydromorphone HCl (Dilaudid) 0.2 mg Q15M PRN IV PAIN LEVEL 1-5 Last administered on 02/08/19at 22:40; Admin Dose 0.2 MG; Start 02/08/19 at 17:00 Hydromorphone HCl (Dilaudid) 0.4 mg Q15M PRN IV PAIN LEVEL 6-10 Last administered on 02/08/19at 19:53; Admin Dose 0.4 MG; Start 02/08/19 at 17:00 Ondansetron HCl (Zofran Inj) 4 mg Q6H PRN IV NAUSEA AND/OR VOMITING; Start 02/08/19 at 17:00 Famotidine (Pepcid Iv) 20 mg BID@08,20 IV Last administered on 02/09/19at 08:10; Admin Dose 20 MG; Start 02/08/19 at 20:00 Aspirin (Aspirin) 325 mg DAILY PO Last administered on 02/09/19at 08:49; Admin Dose 325 MG; Start 02/09/19 at 09:00 Acetaminophen (Tylenol Tab) 650 mg Q3H PRN PO ELEVATED TEMPERATURE Last administered on 02/09/19at 08:49; Admin Dose 650 MG; Start 02/08/19 at 17:00 Magnesium Sulfate/ Dextrose 100 ml @ 100 mls/hr PRN PRN IVPB PENDING LAB VALUE; Start 02/08/19 at 17:00 Nitroglycerin/ Dextrose 250 ml @ 1.5 mls/hr PER PROTOCOL IV ; Start 02/08/19 at 17:00 Dopamine HCl/ Dextrose 250 ml @ 8.933 mls/ hr PER PROTOCOL IV ; Start 02/08/19 at 17:00 Enoxaparin Sodium (Lovenox) 40 mg DAILY SC Last administered on 02/09/19at 08:51; Admin Dose 40 MG; Start 02/09/19 at 09:00 Ketorolac Tromethamine (Toradol) 15 mg Q6H PRN IV PAIN Last administered on 01/18 09:58; Admin Dose 15 MG; Start 02/08/19 at 17:00; Stop 02/11/19 at 16:59 Nicardipine HCl 200 ml @ 50 mls/hr TITRATE IV Last administered on 02/08/19at 19:41; Admin Dose 30 MLS/HR; Start 02/08/19 at 17:30 Tramadol HCl (Ultram) 50 mg Q6H PRN PO MODERATE PAIN LEVEL 4-6 Last administered on 02/09/19at 14:52; Admin Dose 50 MG; Start 02/09/19 at 00:30 Metoprolol Tartrate (Lopressor) 25 mg BID PO ; Start 02/09/19 at 21:00 Atorvastatin Calcium (Lipitor) 40 mg HS PO ; Start 02/09/19 at 21:00 Diagnostic Test (Pha) (Accu-Chek) 1 ea 02 XX ; Start 02/10/19 at 02:00 Insulin Aspart (Novolog Insulin Pen) NOVOLOG *MODERATE* ALGORITHM WITH MEALS BEDTIME SC Last administered on 02/09/19at 12:10; Admin Dose 8 UNIT; Start 02/09/19 at 11:30 Insulin Glargine (Lantus) 10 units DAILY@2000 SC ; Start 02/09/19 at 20:00 Miscellaneous Information 1 ea NOTE XX ; Start 02/09/19 at 11:00 Glucose (Glutose) 15 gm Q15M PRN PO DECREASED GLUCOSE; Start 02/09/19 at 11:00 Glucose (Glutose) 22.5 gm Q15M PRN PO DECREASED GLUCOSE; Start 02/09/19 at 11:00 Dextrose (D50w Syringe) 25 ml Q15M PRN IV DECREASED GLUCOSE; Start 02/09/19 at 11:00 Dextrose (D50w Syringe) 50 ml Q15M PRN IV DECREASED GLUCOSE; Start 02/09/19 at 11:00 Glucagon (Glucagen) 1 mg Q15M PRN IM DECREASED GLUCOSE; Start 02/09/19 at 11:00 Glucose (Glutose) 15 gm Q15M PRN BUCCAL DECREASED GLUCOSE; Start 02/09/19 at 11:00 MANUEL MANCERA MD Feb 09, 2019 16:35
--- NOTE | 2019-02-09 18:18 | OPR ---
DATE OF OPERATION: 02/08/2019 PREOPERATIVE DIAGNOSES: Unstable angina, 3-vessel coronary artery disease. POSTOPERATIVE DIAGNOSES: Unstable angina, 3-vessel coronary artery disease. PROCEDURE: CABG x3, MARINELLI to LAD, SVG to distal RCA, SVG to distal circumflex artery. Epiaortic scan shelby of the ascending aorta and endoscopic vein harvesting. SURGEON: Elias Shane MD. UTILITY DRIVER: SOSA Chase. ANESTHESIOLOGIST: Dr. Flores. TYPE OF ANESTHESIA: General endotracheal. COMPLICATIONS: None. FINDINGS: LV function was good pre- and post-revascularization. We had excellent flows in all the g rafts over 40 mL per minute up to 15 MARINELLI. They were all 2 to 2.5 mm vessels. No atheromas or plaqu es were noted in the ascending aorta. INDICATION: The patient is a 63-year-old male, who was admitted with angina and had an angiogram, wh ich showed severe 3-vessel coronary artery disease. He was referred for urgent CABG. Risks, benefit s and alternatives were explained and understood and consented. DESCRIPTION OF PROCEDURE: The patient was brought to the operating room, was placed in supine positi on. He was induced and underwent general endotracheal intubation without complications. Lines were placed. Antibiotics were given. He was prepped and draped in usual sterile fashion. Median sternot walker was made simultaneous to endoscopic vein harvesting. Heparin was given. MARINELLI was taken down usi ng clips and cautery. Pericardium well was established. We then scanned the ascending aorta. There is no atheromas or plaques. Pursestring was placed in the ascending aorta followed by the right atr ium. We placed a cannula in the aorta followed by 2-stage venous cannula in the right atrium. We pl aced ascending aortic vent. Once all lines were in place, we commenced cardiopulmonary bypass. We p laced a crossclamp and arrested the heart using antegrade cardioplegia and topical ice. Once the hea rt was arrested, we identified the distal RCA, made arteriotomy, extended with Israel scissors, anasto mosed our vein graft using 7-0 Prolene in running fashion in end-to-side manner. The vein grafts cut to length. We then identified the obtuse marginal artery, made arteriotomy, extended the Israel scis sors, anastomosed our vein graft using 7-0 Prolene in running fashion in end-to-side manner. We then identified the mid LAD, made arteriotomy extended with Israel scissors, anastomosed our MARINELLI using 7- 0 Prolene in running fashion in end-to-side manner. We rewarmed the patient, gave warm blood, then r emoved the crossclamp, placed a partial clamp, made 2 aortotomies, anastomosed our vein graft using 5 -0 Prolene in running fashion in end-to-side manner. The partial clamp was removed. Vein grafts wer e deaired. Distal hemostasis was achieved. We began ventilating and weaned the patient off cardiopu lmonary bypass. We then gave protamine. We de-lined the patient. We placed a ventricular pacing wi re. Once hemostasis was achieved, we placed a chest tube. We closed the chest using interrupted cab les followed by closure of the fascia using 0 Vicryl followed by closure of skin using 4-0 Monocryl i n subcuticular fashion. Dressings were applied. The patient was taken to the ICU in critical, but s table condition. Dictated By: ELIAS SHANE MD AA/KERON Conf#: [id number] DID#: [id number] CC: VIKAS GALEANO MD; DOMITILA KIRBY MD; DOMINICK LOZADA DO;*End*
[2019-02-09] MEDS ORDERED: INSULIN GLARGINE [LANTus] (100 UNITS/ML) SYG SC SCH ×2 (20:00)
[2019-02-09] MEDS: ATORVASTATIN 40 MG TAB PO SCH (20:45)
[2019-02-09] MEDS: METOPROLOL 25 MG TAB PO SCH (20:46)
[2019-02-10] VITALS (22 sets, daily range): BP systolic 119–162; BP diastolic 63–97; PULSE 68–95; RESP 18–32
[2019-02-10] MEDS: ACCU-CHEK XX SCH (02:00)
--- NOTE | 2019-02-10 06:36 | PN ---
Date/Time of Note Date/Time of Note DATE: 02/10/19 TIME: 06:35 Assessment/Plan Lines/Catheters IV Catheter Type (from Nrs): Saline Lock Jackson in Place (from Nrs): No Assessment/Plan Assessment/Plan sitting in chair. NSR. chest tube still draining. labs pending. ok to transfer to tele Exam/Review of Systems Vital Signs Vitals Vital Signs Date Temp Pulse Resp B/P (MAP) Pulse Ox O2 O2 Flow FiO2 Time Delivery Rate 02/10/19 97 2.0 27 05:51 02/10/19 73 29 143/86 Nasal 04:00 (105) Cannula 02/10/19 98.4 00:00 Intake and Output 02/09/19 02/09/19 02/10/19 1515:00 23:00 07:00 IntakeIntake Total 1200 ml 470 ml OutputOutput Total 780 ml 470 ml 280 ml BalanceBalance 420 ml 0 ml -280 ml Results Result Diagram: 02/09/19 1645 02/09/19 0400 ELIAS SHANE MD Feb 10, 2019 06:36
[2019-02-10] MEDS: KETOROLAC 15 MG INJ IV PRN ×3 (07:42→19:49)
[2019-02-10] MEDS: FAMOTIDINE 20 MG INJ IV SCH (08:17)
[2019-02-10] MEDS: METOPROLOL 25 MG TAB PO SCH ×2 (08:17→20:34)
[2019-02-10] MEDS: LISINOPRIL 5 MG TAB PO SCH (08:18)
[2019-02-10] MEDS: ASPIRIN 325 MG TAB PO SCH (08:18)
[2019-02-10] MEDS: ENOXAPARIN 40 MG/0.4 ML SYG SC SCH (08:21)
[2019-02-10] MEDS: INSULIN ASPART [NOVOLOG] 3 ML PEN SC SCH ×6 (08:22→20:50)
--- NOTE | 2019-02-10 08:40 | PAC ---
Date/Time of Note Date/Time of Note DATE: 02/10/19 TIME: 08:40 Post-Anesthesia Notes Post-Anesthesia Note Last documented vital signs Vital Signs Date Temp Pulse Resp B/P (MAP) Pulse Ox O2 O2 Flow FiO2 Time Delivery Rate 02/10/19 74 08:00 02/10/19 23 135/79 96 Room Air 07:00 (97) 02/10/19 2.0 06:00 02/10/19 27 05:51 02/10/19 98.2 05:00 Activity: WNL Respiratory function: WNL Cardiovascular function: WNL Mental status: Baseline Pain reasonably controlled: Yes Hydration appropriate: Yes Nausea/Vomiting absent: Yes ANNALISA WHIPPLE MD Feb 10, 2019 08:40
--- NOTE | 2019-02-10 09:02 | PN ---
Date/Time of Note Date/Time of Note DATE: 02/10/19 TIME: 09:01 Objective Vitals Vital Signs Date Temp Pulse Resp B/P (MAP) Pulse Ox O2 O2 Flow FiO2 Time Delivery Rate 02/10/19 74 08:00 02/10/19 99.1 29 135/86 96 Room Air 08:00 (102) 02/10/19 2.0 06:00 02/10/19 27 05:51 Intake and Output 02/09/19 02/09/19 02/10/19 1515:00 23:00 07:00 IntakeIntake Total 1200 ml 470 ml 200 ml OutputOutput Total 780 ml 470 ml 410 ml BalanceBalance 420 ml 0 ml -210 ml Results Result Diagram: 02/09/19 1645 02/09/19 0400 Medications Medications Current Medications Miscellaneous Information (* Miscellaneous Pharmacy Order) Treatment of Hypoglycemia: 1.BG 51... Per protocol XX ; Start 02/08/19 at 17:00 Dextrose (D50w Syringe) 25 ml Q15M PRN IV .DECREASED GLUCOSE; Start 02/08/19 at 17:00 Dextrose (D50w Syringe) 50 ml Q15M PRN IV .DECREASED GLUCOSE; Start 02/08/19 at 17:00 Hydromorphone HCl (Dilaudid) 0.2 mg Q15M PRN IV PAIN LEVEL 1-5 Last administered on 02/08/19at 22:40; Admin Dose 0.2 MG; Start 02/08/19 at 17:00 Hydromorphone HCl (Dilaudid) 0.4 mg Q15M PRN IV PAIN LEVEL 6-10 Last administe red on 02/08/19at 19:53; Admin Dose 0.4 MG; Start 02/08/19 at 17:00 Ondansetron HCl (Zofran Inj) 4 mg Q6H PRN IV NAUSEA AND/OR VOMITING; Start 02/08/19 at 17:00 Famotidine (Pepcid Iv) 20 mg BID@08,20 IV Last administered on 02/10/19at 08:17; Admin Dose 20 MG; Start 02/08/19 at 20:00 Aspirin (Aspirin) 325 mg DAILY PO Last administered on 02/10/19at 08:18; Admin Dose 325 MG; Start 02/09/19 at 09:00 Acetaminophen (Tylenol Tab) 650 mg Q3H PRN PO ELEVATED TEMPERATURE Last administered on 02/09/19 08:49; Admin Dose 650 MG; Start 02/08/19 at 17:00 Magnesium Sulfate/ Dextrose 100 ml @ 100 mls/hr PRN PRN IVPB PENDING LAB VALUE; Start 02/08/19 at 17:00 Nitroglycerin/ Dextrose 250 ml @ 1.5 mls/hr PER PROTOCOL IV ; Start 02/08/19 at 17:00 Dopamine HCl/ Dextrose 250 ml @ 8.933 mls/ hr PER PROTOCOL IV ; Start 02/08/19 at 17:00 Enoxaparin Sodium (Lovenox) 40 mg DAILY SC Last administered on 02/10/19 08:21; Admin Dose 40 MG; Start 02/09/19 at 09:00 Ketorolac Tromethamine (Toradol) 15 mg Q6H PRN IV PAIN Last administered on 02/10/19 07:42; Admin Dose 15 MG; Start 02/08/19 at 17:00; Stop 02/11/19 at 16:59 Nicardipine HCl 200 ml @ 50 mls/hr TITRATE IV Last administered on 02/08/19 19:41; Admin Dose 30 MLS/HR; Start 02/08/19 at 17:30 Tramadol HCl (Ultram) 50 mg Q6H PRN PO MODERATE PAIN LEVEL 4-6 Last administered on 02/09/19 14:52; Admin Dose 50 MG; Start 02/09/19 at 00:30 Metoprolol Tartrate (Lopressor) 25 mg BID PO Last administered on 02/10/19 08:17; Admin Dose 25 MG; Start 02/09/19 at 21:00 Atorvastatin Calcium (Lipitor) 40 mg HS PO Last administered on 02/09/19at 20:45; Admin Dose 40 MG; Start 02/09/19 at 21:00 Diagnostic Test (Pha) (Accu-Chek) 1 XX ; Start 02/10/19 at 02:00 Insulin Aspart (Novolog Insulin Pen) NOVOLOG *MODERATE* ALGORITHM WITH MEALS BEDTIME SC Last administered on 02/10/19 08:22; Admin Dose 6 UNIT; Start 02/09/19 at 11:30 Insulin Glargine (Lantus) 10 units DAILY@2000 SC Last administered on 4/24/19at 20:31; Admin Dose 10 UNITS; Start 02/09/19 at 20:00 Miscellaneous Information 1 ea NOTE XX ; Start 02/09/19 at 11:00 Glucose (Glutose) 15 gm Q15M PRN PO DECREASED GLUCOSE; Start 02/09/19 at 11:00 Glucose (Glutose) 22.5 gm Q15M PRN PO DECREASED GLUCOSE; Start 02/09/19 at 11:00 Dextrose (D50w Syringe) 25 ml Q15M PRN IV DECREASED GLUCOSE; Start 02/09/19 at 11:00 Dextrose (D50w Syringe) 50 ml Q15M PRN IV DECREASED GLUCOSE; Start 02/09/19 at 11:00 Glucagon (Glucagen) 1 mg Q15M PRN IM DECREASED GLUCOSE; Start 02/09/19 at 11:00 Glucose (Glutose) 15 gm Q15M PRN BUCCAL DECREASED GLUCOSE; Start 02/09/19 at 11:00 Lisinopril (Zestril) 5 mg DAILY PO Last administered on 02/10/19at 08:18; Admin Dose 5 MG; Start 02/10/19 at 09:00 VTE Prophylaxis Risk score (from Ns)>0 risk: 13 SCD applied (from Ns): No SCD contraindication: other Lines/Catheters IV Catheter Type: [place] in Place: No Assessment/Plan Hospital Course Subjective Patient doing well after CABG, mildly sleepy but didn't get much sleep overnight Objective Physical exam General: Patient is laying in bed and answers questions appropriately Mentation: Patient is alert and oriented 4, Head: Normocephalic atraumatic Eyes: EOMI, pupils reactive to light Neck: Supple, nontender, midline Respiratory: Clear to auscultation bilaterally Cardiovascular: regular rate, no obvious murmurs Gastrointestinal: non-tender to palpation, bowel sounds heard. Neurological: Moves all extremities spontaneously Skin: Surgical site bandaged Assessment/Plan 1. CAD s/p LHC on 02/03/2019 with 3 vessel disease, s/p 3V CABG on 02/08/19 - Cardiology on board and appreciate recommends. Continue current treatment - CT surgery recs appreciated 2. Diabetes mellitus - A1c noted - continue on Lantus - ISS and accuchecks 3. Hypertension - stable - will adjust medications as needed 4. HLD - continue statin 5. BPH - continue on flomax when tolerating 6. Disposition - cardiology/CT surgery recs appreciated -More than 40 minutes have been spent on this encounter, cont icu for now, will reassess in the afternoon. VIKAS GALEANO Feb 10, 2019 09:02
--- NOTE | 2019-02-10 15:56 | RADRPT ---
Vent Rate: 76 bpm RR Interval: 792 msec MD Interval: 170 msec QRS Duration: 141 msec QT Interval: 394 msec QTC Interval: 443 msec P-R-T [place]: 98 - 2 - 36 degrees Sinus rhythm...normal P axis, V-rate 50- 99 Right bundle branch block...QRSd>120, terminal axis(90,270) Inferior infarct, acute...ST>0.10mV, T upright, II III aVF Lateral wall also involved...lat Q or ST-T abnormalities Electronically Signed By: Rovetro Diehl
--- NOTE | 2019-02-10 15:57 | RADRPT ---
Vent Rate: 81 bpm RR Interval: 0 msec [place] Interval: 172 msec QRS Duration: 156 msec QT Interval: 440 msec QTC Interval: 511 msec P-R-T [place]: 64 - -25 - 17 degrees Normal sinus rhythm Nonspecific intraventricular block Abnormal ECG Electronically Signed By: Roverto Diehl
[2019-02-10] MEDS: traMADol 50 MG TAB PO PRN (16:15)
--- NOTE | 2019-02-10 17:46 | CONS ---
Assessment/Plan Assessment/Plan Assessment/Plan (Daily) Three-vessel coronary artery disease left heart catheterization 02/02/2019 - s/p CABG Diabetes Hypertension Dyslipidemia Preserved ejection fraction -s/p CABG -Diabetes control -CTS involved =contine cv meds Consultation Date/Type/Reason Admit Date/Time Feb 03, 2019 at 18:10 Initial Consult Date Type of Consult Cardiology Requesting Provider: Jd Santos DO Date/Time of Note DATE: 02/10/19 TIME: 17:46 24 HR Interval Summary Free Text/Dictation The aptient doing well Exam/Review of Systems Vital Signs Vitals Vital Signs Date Temp Pulse Resp B/P (MAP) Pulse Ox O2 O2 Flow FiO2 Time Delivery Rate 02/10/19 78 16:00 02/10/19 22 162/79 99 Room Air 14:00 (106) 02/10/19 98.8 12:00 02/10/19 2.0 06:00 02/10/19 27 05:51 Intake and Output 02/09/19 02/09/19 02/10/19 1515:00 23:00 07:00 IntakeIntake Total 1200 ml 470 ml 200 ml OutputOutput Total 780 ml 470 ml 410 ml BalanceBalance 420 ml 0 ml -210 ml Labs Result Diagram: 02/10/19 0827 02/10/19 0827 Results 24hrs Laboratory Tests Test 02/09/19 20:29 02/10/19 01:40 02/10/19 08:16 02/10/19 08:27 Bedside Glucose 227 H 230 H 243 H White Blood Count 11.6 #H Red Blood Count 3.55 L Hemoglobin 10.7 L Hematocrit 32.4 L Mean Corpuscular 91.3 Volume Mean Corpuscular 30.1 Hemoglobin Mean Corpuscular 33.0 Hemoglobin Concent Red Cell 13.9 Distribution Width Platelet Count 160 Mean Platelet Volume 9.8 Immature 0.500 H Granulocytes % Neutrophils % 72.2 Lymphocytes % 12.9 L Monocytes % 12.8 H Eosinophils % 1.3 Basophils % 0.3 Nucleated Red Blood 0.0 Cells % Immature 0.060 H Granulocytes # Neutrophils # 8.4 H Lymphocytes # 1.5 Monocytes # 1.5 H Eosinophils # 0.2 Basophils # 0.0 Nucleated Red Blood 0.0 Cells # Sodium Level 136 Potassium Level 4.8 Chloride Level 104 Carbon Dioxide Level 26 Anion Gap 6 Blood Urea Nitrogen 24 H Creatinine 0.79 Est Glomerular > 60 Filtrat Rate mL/min Glucose Level 248 #H Calcium Level 9.1 Magnesium Level 1.7 Test 02/10/19 12:28 02/10/19 17:31 Bedside Glucose 262 H 241 H Medications Medications Current Medications Miscellaneous Information (* Miscellaneous Pharmacy Order) Treatment of Hypoglycemia: 1.BG 51... Per protocol XX ; Start 02/08/19 at 17:00 Dextrose (D50w Syringe) 25 ml Q15M PRN IV .DECREASED GLUCOSE; Start 02/08/19 at 17:00 Dextrose (D50w Syringe) 50 ml Q15M PRN IV .DECREASED GLUCOSE; Start 02/08/19 at 17:00 Hydromorphone HCl (Dilaudid) 0.2 mg Q15M PRN IV PAIN LEVEL 1-5 Last administered on 02/08/19at 22:40; Admin Dose 0.2 MG; Start 02/08/19 at 17:00 Hydromorphone HCl (Dilaudid) 0.4 mg Q15M PRN IV PAIN LEVEL 6-10 Last administered on 02/08/19at 19:53; Admin Dose 0.4 MG; Start 02/08/19 at 17:00 Ondansetron HCl (Zofran Inj) 4 mg Q6H PRN IV NAUSEA AND/OR VOMITING; Start 02/08/19 at 17:00 Aspirin (Aspirin) 325 mg DAILY PO Last administered on 02/10/19at 08:18; Admin Dose 325 MG; Start 02/09/19 at 09:00 Acetaminophen (Tylenol Tab) 650 mg Q3H PRN PO ELEVATED TEMPERATURE Last administered on 02/09/19at 08:49; Admin Dose 650 MG; Start 02/08/19 at 17:00 Magnesium Sulfate/ Dextrose 100 ml @ 100 mls/hr PRN PRN IVPB PENDING LAB [facility]; Start 02/08/19 at 17:00 Enoxaparin Sodium (Lovenox) 40 mg DAILY SC Last administered on 02/10/19at 08:21; Admin Dose 40 MG; Start 02/09/19 at 09:00 Ketorolac Tromethamine (Toradol) 15 mg Q6H PRN IV PAIN Last administered on 02/10/19at 14:03; Admin Dose 15 MG; Start 02/08/19 at 17:00; Stop 02/11/19 at 16:59 Tramadol HCl (Ultram) 50 mg Q6H PRN PO MODERATE PAIN LEVEL 4-6 Last administered on 02/10/19at 16:15; Admin Dose 50 MG; Start 02/09/19 at 00:30 Metoprolol Tartrate (Lopressor) 25 mg BID PO Last administered on 02/10/19 08:17; Admin Dose 25 MG; Start 02/09/19 at 21:00 Atorvastatin Calcium (Lipitor) 40 mg HS PO Last administered on 02/09/19at 20:45; Admin Dose 40 MG; Start 02/09/19 at 21:00 Diagnostic Test (Pha) (Accu-Chek) 1 ea 02 XX ; Start 02/10/19 at 02:00 Insulin Aspart (Novolog Insulin Pen) NOVOLOG *MODERATE* ALGORITHM WITH MEALS BEDTIME SC Last administered on 02/10/19at 17:34; Admin Dose 6 UNIT; Start 02/09/19 at 11:30 Miscellaneous Information 1 ea NOTE XX ; Start 02/09/19 at 11:00 Glucose (Glutose) 15 gm Q15M PRN PO DECREASED GLUCOSE; Start 02/09/19 at 11:00 Glucose (Glutose) 22.5 gm Q15M PRN PO DECREASED GLUCOSE; Start 02/09/19 at 11:00 Dextrose (D50w Syringe) 25 ml Q15M PRN IV DECREASED GLUCOSE; Start 02/09/19 at 11:00 Dextrose (D50w Syringe) 50 ml Q15M PRN IV DECREASED GLUCOSE; Start 02/09/19 at 11:00 Glucagon (Glucagen) 1 mg Q15M PRN IM DECREASED GLUCOSE; Start 02/09/19 at 11:00 Glucose (Glutose) 15 gm Q15M PRN BUCCAL DECREASED GLUCOSE; Start 02/09/19 at 11:00 Lisinopril (Zestril) 5 mg DAILY PO Last administered on 02/10/19at 08:18; Admin Dose 5 MG; Start 02/10/19 at 09:00 Insulin Glargine (Lantus) 15 units DAILY@2000 SC ; Start 02/10/19 at 20:00 Insulin Aspart (Novolog Insulin Pen) 6 unit WITH MEALS SC Last administered on 02/10/19at 17:35; Admin Dose 6 UNIT; Start 02/10/19 at 11:30 Famotidine (Pepcid) 20 mg BID@08,20 PO ; Start 02/10/19 at 20:00 MANUEL MANCERA MD Feb 10, 2019 17:46
[2019-02-10] MEDS: ATORVASTATIN 40 MG TAB PO SCH (20:34)
[2019-02-10] MEDS: FAMOTIDINE 20 MG TAB PO SCH (20:34)
[2019-02-10] MEDS: HYDROmorphONE 0.5 MG/0.5 ML SYG IV PRN (20:44)
[2019-02-10] MEDS: INSULIN GLARGINE [LANTus] (100 UNITS/ML) SYG SC SCH (22:11)
[2019-02-11] VITALS (11 sets, daily range): BP systolic 74–142; BP diastolic 64–98; PULSE 66–80; RESP 19–22
[2019-02-11] MEDS: ACCU-CHEK XX SCH (02:00)
[2019-02-11] MEDS: HYDROmorphONE 0.5 MG/0.5 ML SYG IV PRN ×3 (02:17→21:55)
[2019-02-11] MEDS: KETOROLAC 15 MG INJ IV PRN ×2 (06:08→14:40)
--- NOTE | 2019-02-11 07:32 | CONS ---
Assessment/Plan Assessment/Plan Assessment/Plan (Daily) Assessment: 1) Three-vessel coronary artery disease left heart catheterization 02/02/2019 - s/p CABG 2) Diabetes 3) Hypertension 4) Dyslipidemia 5) Preserved ejection fraction Plan: mobilization continue current meds Consultation Date/Type/Reason Admit Date/Time Feb 03, 2019 at 18:10 Initial Consult Date 02/04/19 Type of Consult Cardiology Requesting Provider: Jd Santos DO Date/Time of Note DATE: 02/11/19 TIME: 07:29 24 HR Interval Summary Free Text/Dictation resting, no chest pain, no sob Detailed Summary Respiratory: no complaints Cardiovascular: no complaints Gastrointestinal: no complaints Musculoskeletal: no complaints Skin: no complaints Neurologic: no complaints Exam/Review of Systems Vital Signs Vitals Vital Signs Date Temp Pulse Resp B/P (MAP) Pulse Ox O2 O2 Flow FiO2 Time Delivery Rate 02/11/19 79 04:00 02/11/19 97.9 19 140/68 96 04:00 (92) 02/10/19 Room Air 18:30 02/10/19 2.0 06:00 02/10/19 27 05:51 Intake and Output 02/10/19 02/10/19 02/11/19 1515:00 23:00 07:00 IntakeIntake Total 440 ml 480 ml OutputOutput Total 220 ml 310 ml BalanceBalance 220 ml 170 ml Exam Head: normocephalic, atraumatic Neck: supple Respiratory: clear to auscultation Cardiovascular: regular rate and rhythm Gastrointestinal: soft Musculoskeletal: nl extremities to inspection Extremities: normal pulses Labs Result Diagram: 02/10/19 0827 02/10/19 0827 Results 24hrs Laboratory Tests Test 02/10/19 08:16 02/10/19 08:27 02/10/19 12:28 02/10/19 17:31 Bedside Glucose 243 H 262 H 241 H White Blood Count 11.6 #H Red Blood Count 3.55 L Hemoglobin 10.7 L Hematocrit 32.4 L Mean Corpuscular 91.3 Volume Mean Corpuscular 30.1 Hemoglobin Mean Corpuscular 33.0 Hemoglobin Concent Red Cell 13.9 Distribution Width Platelet Count 160 Mean Platelet Volume 9.8 Immature 0.500 H Granulocytes % Neutrophils % 72.2 Lymphocytes % 12.9 L Monocytes % 12.8 H Eosinophils % 1.3 Basophils % 0.3 Nucleated Red Blood 0.0 Cells % Immature 0.060 H Granulocytes # Neutrophils # 8.4 H Lymphocytes # 1.5 Monocytes # 1.5 H Eosinophils # 0.2 Basophils # 0.0 Nucleated Red Blood 0.0 Cells # Sodium Level 136 Potassium Level 4.8 Chloride Level 104 Carbon Dioxide Level 26 Anion Gap 6 Blood Urea Nitrogen 24 H Creatinine 0.79 Est Glomerular > 60 Filtrat Rate mL/min Glucose Level 248 #H Calcium Level 9.1 Magnesium Level 1.7 Test 02/10/19 20:32 02/11/19 02:15 Bedside Glucose 222 H 168 Medications Medications Current Medications Miscellaneous Information (* Miscellaneous Pharmacy Order) Treatment of Hypoglycemia: 1.BG 51... Per protocol XX ; Start 02/08/19 at 17:00 Dextrose (D50w Syringe) 25 ml Q15M PRN IV .DECREASED GLUCOSE; Start 02/08/19 at 17:00 Dextrose (D50w Syringe) 50 ml Q15M PRN IV .DECREASED GLUCOSE; Start 02/08/19 at 17:00 Hydromorphone HCl (Dilaudid) 0.2 mg Q15M PRN IV PAIN LEVEL 1-5 Last administered on 02/08/19at 22:40; Admin Dose 0.2 MG; Start 02/08/19 at 17:00 Hydromorphone HCl (Dilaudid) 0.4 mg Q15M PRN IV PAIN LEVEL 6-10 Last administered on 02/11/19at 06:45; Admin Dose 0.4 MG; Start 02/08/19 at 17:00 Ondansetron HCl (Zofran Inj) 4 mg Q6H PRN IV NAUSEA AND/OR VOMITING; Start 02/08/19 at 17:00 Aspirin (Aspirin) 325 mg DAILY PO Last administered on 02/10/19at 08:18; Admin Dose 325 MG; Start 02/09/19 at 09:00 Acetaminophen (Tylenol Tab) 650 mg Q3H PRN PO ELEVATED TEMPERATURE Last administered on 02/09/19at 08:49; Admin Dose 650 MG; Start 02/08/19 at 17:00 Magnesium Sulfate/ Dextrose 100 ml @ 100 mls/hr PRN PRN IVPB PENDING LAB VALUE; Start 02/08/19 at 17:00 Enoxaparin Sodium (Lovenox) 40 mg DAILY SC Last administered on 02/10/19 08:21; Admin Dose 40 MG; Start 02/09/19 at 09:00 Ketorolac Tromethamine (Toradol) 15 mg Q6H PRN IV PAIN Last administered on 02/11/19at 06:08; Admin Dose 15 MG; Start 02/08/19 at 17:00; Stop 02/11/19 at 16:59 Tramadol HCl (Ultram) 50 mg Q6H PRN PO MODERATE PAIN LEVEL 4-6 Last administered on 02/10/19at 16:15; Admin Dose 50 MG; Start 02/09/19 at 00:30 Metoprolol Tartrate (Lopressor) 25 mg BID PO Last administered on 02/10/19 20:34; Admin Dose 25 MG; Start 02/09/19 at 21:00 Atorvastatin Calcium (Lipitor) 40 mg HS PO Last administered on 02/10/19 20:34; Admin Dose 40 MG; Start 02/09/19 at 21:00 Diagnostic Test (Pha) (Accu-Chek) 1 ea 02 XX ; Start 02/10/19 at 02:00 Insulin Aspart (Novolog Insulin Pen) NOVOLOG *MODERATE* ALGORITHM WITH MEALS BEDTIME SC Last administered on 02/10/19at 20:50; Admin Dose 2 UNIT; Start 02/09/19 at 11:30 Miscellaneous Information 1 ea NOTE XX ; Start 02/09/19 at 11:00 Glucose (Glutose) 15 gm Q15M PRN PO DECREASED GLUCOSE; Start 02/09/19 at 11:00 Glucose (Glutose) 22.5 gm Q15M PRN PO DECREASED GLUCOSE; Start 02/09/19 at 11:00 Dextrose (D50w Syringe) 25 ml Q15M PRN IV DECREASED GLUCOSE; Start 02/09/19 at 11:00 Dextrose (D50w Syringe) 50 ml Q15M PRN IV DECREASED GLUCOSE; Start 02/09/19 at 11:00 Glucagon (Glucagen) 1 mg Q15M PRN IM DECREASED GLUCOSE; Start 02/09/19 at 11:00 Glucose (Glutose) 15 gm Q15M PRN BUCCAL DECREASED GLUCOSE; Start 02/09/19 at 11:00 Lisinopril (Zestril) 5 mg DAILY PO Last administered on 02/10/19at 08:18; Admin Dose 5 MG; Start 02/10/19 at 09:00 Insulin Glargine (Lantus) 15 units DAILY@2000 SC Last administered on 02/10/19at 22:11; Admin Dose 15 UNITS; Start 02/10/19 at 20:00 Insulin Aspart (Novolog Insulin Pen) 6 unit WITH MEALS SC Last administered on 02/10/19at 17:35; Admin Dose 6 UNIT; Start 02/10/19 at 11:30 Famotidine (Pepcid) 20 mg BID@08,20 PO Last administered on 02/10/19at 20:34; Ad min Dose 20 MG; Start 02/10/19 at 20:00 AMAIRANI GALLOWAY MD Feb 11, 2019 07:32
[2019-02-11] MEDS: INSULIN ASPART [NOVOLOG] 3 ML PEN SC SCH ×7 (07:57→20:29)
[2019-02-11] MEDS: FAMOTIDINE 20 MG TAB PO SCH ×2 (08:28→20:18)
[2019-02-11] MEDS: ASPIRIN 325 MG TAB PO SCH (08:28)
[2019-02-11] MEDS: METOPROLOL 25 MG TAB PO SCH ×2 (08:29→20:18)
[2019-02-11] MEDS: LISINOPRIL 5 MG TAB PO SCH (08:29)
[2019-02-11] MEDS: ENOXAPARIN 40 MG/0.4 ML SYG SC SCH (08:30)
--- NOTE | 2019-02-11 11:26 | PN ---
Date/Time of Note Date/Time of Note DATE: 02/11/19 TIME: 11:24 Assessment/Plan VTE Prophylaxis Risk score (from Nsg)>0 risk: 6 SCD applied (from Nsg): Yes Pharmacological prophylaxis: LMWH Lines/Catheters IV Catheter Type (from Nrsg): Peripheral IV Urinary Cath still in place: No Assessment/Plan Hospital Course Eating lunch. Feels well. OK for CABG tomorrow Assessment/Plan On RA. Draining from chest tubes. Afebrile. Ambulating. Good progress Result Diagram: 02/11/19 0721 02/11/19 0721 Results 24hrs Laboratory Tests Test 02/10/19 12:28 02/10/19 17:31 02/10/19 20:32 02/11/19 02:15 Bedside Glucose 262 H 241 H 222 H 168 Test 02/11/19 07:21 02/11/19 07:50 White Blood Count 9.3 Red Blood Count 3.19 L Hemoglobin 9.5 L Hematocrit 28.9 L Mean Corpuscular 90.6 Volume Mean Corpuscular 29.8 Hemoglobin Mean Corpuscular 32.9 Hemoglobin Concent Red Cell 13.6 Distribution Width Platelet Count 150 Mean Platelet Volume 10.1 Immature 0.400 Granulocytes % Neutrophils % 67.9 Lymphocytes % 17.2 Monocytes % 11.1 H Eosinophils % 3.2 Basophils % 0.2 Nucleated Red Blood 0.0 Cells % Immature 0.040 H Granulocytes # Neutrophils # 6.3 Lymphocytes # 1.6 Monocytes # 1.0 H Eosinophils # 0.3 Basophils # 0.0 Nucleated Red Blood 0.0 Cells # Sodium Level 138 Potassium Level 4.5 Chloride Level 105 Carbon Dioxide Level 26 Anion Gap 7 Blood Urea Nitrogen 24 H Creatinine 0.69 Est Glomerular > 60 Filtrat Rate mL/min Glucose Level 194 Calcium Level 8.6 Phosphorus Level 3.3 Magnesium Level 1.8 Bedside Glucose 191 Exam/Review of Systems Exam Vitals Vital Signs Date Temp Pulse Resp B/P (MAP) Pulse Ox O2 O2 Flow FiO2 Time Delivery Rate 02/11/19 76 08:05 02/11/19 98.0 20 142/78 96 07:40 (99) 02/10/19 Room Air 18:30 02/10/19 2.0 06:00 02/10/19 27 05:51 Intake and Output 02/10/19 02/10/19 02/11/19 1515:00 23:00 07:00 IntakeIntake Total 440 ml 480 ml 500 ml OutputOutput Total 220 ml 310 ml 400 ml BalanceBalance 220 ml 170 ml 100 ml Results Results 24hrs Laboratory Tests Test 02/10/19 12:28 02/10/19 17:31 02/10/19 20:32 02/11/19 02:15 Bedside Glucose 262 H 241 H 222 H 168 Test 02/11/19 07:21 02/11/19 07:50 White Blood Count 9.3 Red Blood Count 3.19 L Hemoglobin 9.5 L Hematocrit 28.9 L Mean Corpuscular 90.6 Volume Mean Corpuscular 29.8 Hemoglobin Mean Corpuscular 32.9 Hemoglobin Concent Red Cell 13.6 Distribution Width Platelet Count 150 Mean Platelet Volume 10.1 Immature 0.400 Granulocytes % Neutrophils % 67.9 Lymphocytes % 17.2 Monocytes % 11.1 H Eosinophils % 3.2 Basophils % 0.2 Nucleated Red Blood 0.0 Cells % Immature 0.040 H Granulocytes # Neutrophils # 6.3 Lymphocytes # 1.6 Monocytes # 1.0 H Eosinophils # 0.3 Basophils # 0.0 Nucleated Red Blood 0.0 Cells # Sodium Level 138 Potassium Level 4.5 Chloride Level 105 Carbon Dioxide Level 26 Anion Gap 7 Blood Urea Nitrogen 24 H Creatinine 0.69 Est Glomerular > 60 Filtrat Rate mL/min Glucose Level 194 Calcium Level 8.6 Phosphorus Level 3.3 Magnesium Level 1.8 Bedside Glucose 191 Medications Medication Current Medications Miscellaneous Information (* Miscellaneous Pharmacy Order) Treatment of Hypoglycemia: 1.BG 51... Per protocol XX ; Start 02/08/19 at 17:00 Dextrose (D50w Syringe) 25 ml Q15M PRN IV .DECREASED GLUCOSE; Start 02/08/19 at 17:00 Dextrose (D50w Syringe) 50 ml Q15M PRN IV .DECREASED GLUCOSE; Start 02/08/19 at 17:00 Hydromorphone HCl (Dilaudid) 0.2 mg Q15M PRN IV PAIN LEVEL 1-5 Last administered on 02/08/19at 22:40; Admin Dose 0.2 MG; Start 02/08/19 at 17:00 Hydromorphone HCl (Dilaudid) 0.4 mg Q15M PRN IV PAIN LEVEL 6-10 Last administered on 02/11/19 06:45; Admin Dose 0.4 MG; Start 02/08/19 at 17:00 Ondansetron HCl (Zofran Inj) 4 mg Q6H PRN IV NAUSEA AND/OR VOMITING; Start 02/08/19 at 17:00 Aspirin (Aspirin) 325 mg DAILY PO Last administered on 02/11/19 08:28; Admin Dose 325 MG; Start 02/09/19 at 09:00 Acetaminophen (Tylenol Tab) 650 mg Q3H PRN PO ELEVATED TEMPERATURE Last administered on 02/09/19 08:49; Admin Dose 650 MG; Start 02/08/19 at 17:00 Magnesium Sulfate/ Dextrose 100 ml @ 100 mls/hr PRN PRN IVPB PENDING LAB VALUE; Start 02/08/19 at 17:00 Enoxaparin Sodium (Lovenox) 40 mg DAILY SC Last administered on 02/11/19 08:30; Admin Dose 40 MG; Start 02/09/19 at 09:00 Ketorolac Tromethamine (Toradol) 15 mg Q6H PRN IV PAIN Last administered on 02/11/19 06:08; Admin Dose 15 MG; Start 02/08/19 at 17:00; Stop 02/11/19 at 16:59 Tramadol HCl (Ultram) 50 mg Q6H PRN PO MODERATE PAIN LEVEL 4-6 Last administered on 02/10/19at 16:15; Admin Dose 50 MG; Start 02/09/19 at 00:30 Metoprolol Tartrate (Lopressor) 25 mg BID PO Last administered on 02/11/19 08:29; Admin Dose 25 MG; Start 02/09/19 at 21:00 Atorvastatin Calcium (Lipitor) 40 mg HS PO Last administered on 02/10/19at 20:34; Admin Dose 40 MG; Start 02/09/19 at 21:00 Diagnostic Test (Pha) (Accu-Chek) 1 ea 02 XX ; Start 02/10/19 at 02:00 Insulin Aspart (Novolog Insulin Pen) NOVOLOG *MODERATE* ALGORITHM WITH MEALS BEDTIME SC Last administered on 02/11/19 07:57; Admin Dose 4 UNIT; Start 02/09/19 at 11:30 Miscellaneous Information 1 ea NOTE XX ; Start 02/09/19 at 11:00 Glucose (Glutose) 15 gm Q15M PRN PO DECREASED GLUCOSE; Start 02/09/19 at 11:00 Glucose (Glutose) 22.5 gm Q15M PRN PO DECREASED GLUCOSE; Start 02/09/19 at 11:00 Dextrose (D50w Syringe) 25 ml Q15M PRN IV DECREASED GLUCOSE; Start 02/09/19 at 11:00 Dextrose (D50w Syringe) 50 ml Q15M PRN IV DECREASED GLUCOSE; Start 02/09/19 at 11:00 Glucagon (Glucagen) 1 mg Q15M PRN IM DECREASED GLUCOSE; Start 02/09/19 at 11:00 Glucose (Glutose) 15 gm Q15M PRN BUCCAL DECREASED GLUCOSE; Start 02/09/19 at 11:00 Lisinopril (Zestril) 5 mg DAILY PO Last administered on 02/11/19at 08:29; Admin Dose 5 MG; Start 02/10/19 at 09:00 Insulin Glargine (Lantus) 15 units DAILY@2000 SC Last administered on 02/10/19at 22:11; Admin Dose 15 UNITS; Start 02/10/19 at 20:00 Insulin Aspart (Novolog Insulin Pen) 6 unit WITH MEALS SC Last administered on 02/11/19at 07:59; Admin Dose 6 UNIT; Start 02/10/19 at 11:30 Famotidine (Pepcid) 20 mg BID@08,20 PO Last administered on 02/11/19at 08:28; Admin Dose 20 MG; Start 02/10/19 at 20:00 DOMINICK ARMSTRONG MD Feb 11, 2019 11:26
--- NOTE | 2019-02-11 12:46 | PN ---
Date/Time of Note Date/Time of Note DATE: 02/11/19 TIME: 12:45 Objective Vitals Vital Signs Date Temp Pulse Resp B/P (MAP) Pulse Ox O2 O2 Flow FiO2 Time Delivery Rate 02/11/19 71 12:04 02/11/19 98.0 20 142/78 96 07:40 (99) 02/10/19 Room Air 18:30 02/10/19 2.0 06:00 02/10/19 27 05:51 Intake and Output 02/10/19 02/10/19 02/11/19 1515:00 23:00 07:00 IntakeIntake Total 440 ml 480 ml 500 ml OutputOutput Total 220 ml 310 ml 400 ml BalanceBalance 220 ml 170 ml 100 ml Results Result Diagram: 02/11/19 0721 02/11/1921 Medications Medications Current Medications Miscellaneous Information (* Miscellaneous Pharmacy Order) Treatment of Hypoglycemia: 1.BG 51... Per protocol XX ; Start 02/08/19 at 17:00 Dextrose (D50w Syringe) 25 ml Q15M PRN IV .DECREASED GLUCOSE; Start 02/08/19 at 17:00 Dextrose (D50w Syringe) 50 ml Q15M PRN IV .DECREASED GLUCOSE; Start 02/08/19 at 17:00 Hydromorphone HCl (Dilaudid) 0.2 mg Q15M PRN IV PAIN LEVEL 1-5 Last administered on 02/08/19at 22:40; Admin Dose 0.2 MG; Start 02/08/19 at 17:00 Hydromorphone HCl (Dilaudid) 0.4 mg Q15M PRN IV PAIN LEVEL 6-10 Last administered on 02/11/19at 06:45; Admin Dose 0.4 MG; Start 02/08/19 at 17:00 Ondansetron HCl (Zofran Inj) 4 mg Q6H PRN IV NAUSEA AND/OR VOMITING; Start 02/08/19 at 17:00 Aspirin (Aspirin) 325 mg DAILY PO Last administered on 02/11/19at 08:28; Admin Dose 325 MG; Start 02/09/19 at 09:00 Acetaminophen (Tylenol Tab) 650 mg Q3H PRN PO ELEVATED TEMPERATURE Last administered on 02/09/19at 08:49; Admin Dose 650 MG; Start 02/08/19 at 17:00 Magnesium Sulfate/ Dextrose 100 ml @ 100 mls/hr PRN PRN IVPB PENDING LAB VALUE; Start 02/08/19 at 17:00 Enoxaparin Sodium (Lovenox) 40 mg DAILY SC Last administered on 02/11/19at 08:30; Admin Dose 40 MG; Start 02/09/19 at 09:00 Ketorolac Tromethamine (Toradol) 15 mg Q6H PRN IV PAIN Last administered on 02/11/19at 06:08; Admin Dose 15 MG; Start 02/08/19 at 17:00; Stop 02/11/19 at 16:59 Tramadol HCl (Ultram) 50 mg Q6H PRN PO MODERATE PAIN LEVEL 4-6 Last administered on 02/10/19at 16:15; Admin Dose 50 MG; Start 02/09/19 at 00:30 Metoprolol Tartrate (Lopressor) 25 mg BID PO Last administered on 02/11/19at 08:29; Admin Dose 25 MG; Start 02/09/19 at 21:00 Atorvastatin Calcium (Lipitor) 40 mg HS PO Last administered on 02/10/19at 20:34; Admin Dose 40 MG; Start 02/09/19 at 21:00 Diagnostic Test (Pha) (Accu-Chek) 1 ea 02 XX ; Start 02/10/19 at 02:00 Insulin Aspart (Novolog Insulin Pen) NOVOLOG *MODERATE* ALGORITHM WITH MEALS BEDTIME SC Last administered on 02/11/19at 12:11; Admin Dose 4 UNIT; Start 02/09/19 at 11:30 Miscellaneous Information 1 ea NOTE XX ; Start 02/09/19 at 11:00 Glucose (Glutose) 15 gm Q15M PRN PO DECREASED GLUCOSE; Start 02/09/19 at 11:00 Glucose (Glutose) 22.5 gm Q15M PRN PO DECREASED GLUCOSE; Start 02/09/19 at 11:0 0 Dextrose (D50w Syringe) 25 ml Q15M PRN IV DECREASED GLUCOSE; Start 02/09/19 at 11:00 Dextrose (D50w Syringe) 50 ml Q15M PRN IV DECREASED GLUCOSE; Start 02/09/19 at 11:00 Glucagon (Glucagen) 1 mg Q15M PRN IM DECREASED GLUCOSE; Start 02/09/19 at 11:00 Glucose (Glutose) 15 gm Q15M PRN BUCCAL DECREASED GLUCOSE; Start 02/09/19 at 11:00 Lisinopril (Zestril) 5 mg DAILY PO Last administered on 02/11/19at 08:29; Admin Dose 5 MG; Start 02/10/19 at 09:00 Insulin Glargine (Lantus) 15 units DAILY@2000 SC Last administered on 02/10/19at 22:11; Admin Dose 15 UNITS; Start 02/10/19 at 20:00 Insulin Aspart (Novolog Insulin Pen) 6 unit WITH MEALS SC Last administered on 02/11/19at 12:10; Admin Dose 6 UNIT; Start 02/10/19 at 11:30 Famotidine (Pepcid) 20 mg BID@08,20 PO Last administered on 02/11/19at 08:28; Admin Dose 20 MG; Start 02/10/19 at 20:00 VTE Prophylaxis Risk score (from Ns)>0 risk: 6 SCD applied (from Ns): Yes Lines/Catheters IV Catheter Type: Jackson in Place: No Assessment/Plan Hospital Course Subjective Patient doing well after CABG Objective Physical exam General: Patient is laying in bed and answers questions appropriately Mentation: Patient is alert and oriented 4, Head: Normocephalic atraumatic Eyes: EOMI, pupils reactive to light Neck: Supple, nontender, midline Respiratory: Clear to auscultation bilaterally Cardiovascular: regular rate, no obvious murmurs Gastrointestinal: non-tender to palpation, bowel sounds heard. Neurological: Moves all extremities spontaneously Skin: Surgical site bandaged Assessment/Plan 1. CAD s/p LHC on 02/03/2019 with 3 vessel disease, s/p 3V CABG on 02/08/19 - Cardiology on board and appreciate recommends. Continue current treatment - CT surgery recs appreciated 2. Diabetes mellitus - A1c noted - continue on Lantus - ISS and accuchecks 3. Hypertension - stable - will adjust medications as needed 4. HLD - continue statin 5. BPH - continue on flomax when tolerating 6. Disposition - cardiology/CT surgery recs appreciated - chest tube still in VIKAS GALEANO Feb 11, 2019 12:46
[2019-02-11] MEDS: traMADol 50 MG TAB PO PRN (19:12)
[2019-02-11] MEDS: ATORVASTATIN 40 MG TAB PO SCH (20:17)
[2019-02-11] MEDS: INSULIN GLARGINE [LANTus] (100 UNITS/ML) SYG SC SCH (20:27)
[2019-02-12] VITALS (10 sets, daily range): BP systolic 133–148; BP diastolic 70–80; PULSE 66–80; RESP 18–21
[2019-02-12] MEDS: HYDROmorphONE 1 MG/ML SYG IV PRN ×4 (00:12→22:34)
[2019-02-12] MEDS: ACCU-CHEK XX SCH (01:59)
[2019-02-12] MEDS: INSULIN ASPART [NOVOLOG] 3 ML PEN SC SCH ×7 (08:07→20:59)
[2019-02-12] MEDS: METOPROLOL 25 MG TAB PO SCH ×2 (08:32→20:29)
[2019-02-12] MEDS: LISINOPRIL 5 MG TAB PO SCH (08:32)
[2019-02-12] MEDS: ASPIRIN 325 MG TAB PO SCH (08:32)
[2019-02-12] MEDS: FAMOTIDINE 20 MG TAB PO SCH ×2 (08:32→20:29)
[2019-02-12] MEDS: ENOXAPARIN 40 MG/0.4 ML SYG SC SCH (08:34)
--- NOTE | 2019-02-12 09:24 | PN ---
Date/Time of Note Date/Time of Note DATE: 02/12/19 TIME: 09:23 Assessment/Plan Lines/Catheters IV Catheter Type (from Nrs): Peripheral IV Jackson in Place (from Nrs): No Assessment/Plan Assessment/Plan doing well, remove chest tubes and pacing wires. labs ok. anticipate discharge tomorrow Exam/Review of Systems Vital Signs Vitals Vital Signs Date Temp Pulse Resp B/P (MAP) Pulse Ox O2 O2 Flow FiO2 Time Delivery Rate 02/12/19 98.8 73 18 137/80 95 Room Air 07:16 (99) 02/10/19 2.0 06:00 02/10/19 05:51 Intake and Output 02/11/19 02/11/19 02/12/19 1515:00 23:00 07:00 IntakeIntake Total 650 ml 350 ml OutputOutput Total 900 ml 550 ml BalanceBalance -250 ml -200 ml Results Result Diagram: 02/12/19 0736 02/12/19 0736 ELIAS SHANE MD Feb 12, 2019 09:24
--- NOTE | 2019-02-12 12:57 | PN ---
Date/Time of Note Date/Time of Note DATE: 02/12/19 TIME: 12:51 Objective Vitals Vital Signs Date Temp Pulse Resp B/P (MAP) Pulse Ox O2 O2 Flow FiO2 Time Delivery Rate 02/12/19 98.0 66 18 147/73 97 Room Air 11:10 (97) 02/10/19 2.0 06:00 02/10/19 27 05:51 Intake and Output 02/11/19 02/11/19 02/12/19 1515:00 23:00 07:00 IntakeIntake Total 650 ml 350 ml OutputOutput Total 900 ml 550 ml BalanceBalance -250 ml -200 ml Results Result Diagram: 02/12/19 0736 02/12/1936 Medications Medications Current Medications Miscellaneous Information (* Miscellaneous Pharmacy Order) Treatment of Hypogl ycemia: 1.BG 51... Per protocol XX ; Start 02/08/19 at 17:00 Dextrose (D50w Syringe) 25 ml Q15M PRN IV .DECREASED GLUCOSE; Start 02/08/19 at 17:00 Dextrose (D50w Syringe) 50 ml Q15M PRN IV .DECREASED GLUCOSE; Start 02/08/19 at 17:00 Hydromorphone HCl (Dilaudid) 0.2 mg Q15M PRN IV PAIN LEVEL 1-5 Last administered on 02/08/19at 22:40; Admin Dose 0.2 MG; Start 02/08/19 at 17:00 Hydromorphone HCl (Dilaudid) 0.4 mg Q15M PRN IV PAIN LEVEL 6-10 Last administered on 02/11/19at 21:55; Admin Dose 0.4 MG; Start 02/08/19 at 17:00 Ondansetron HCl (Zofran Inj) 4 mg Q6H PRN IV NAUSEA AND/OR VOMITING; Start 02/08/19 at 17:00 Aspirin (Aspirin) 325 mg DAILY PO Last administered on 02/12/19at 08:32; Admin D ose 325 MG; Start 02/09/19 at 09:00 Acetaminophen (Tylenol Tab) 650 mg Q3H PRN PO ELEVATED TEMPERATURE Last administered on 02/09/19at 08:49; Admin Dose 650 MG; Start 02/08/19 at 17:00 Magnesium Sulfate/ Dextrose 100 ml @ 100 mls/hr PRN PRN IVPB PENDING LAB VALUE; Start 02/08/19 at 17:00 Enoxaparin Sodium (Lovenox) 40 mg DAILY SC Last administered on 02/12/19at 08:34; Admin Dose 40 MG; Start 02/09/19 at 09:00 Tramadol HCl (Ultram) 50 mg Q6H PRN PO MODERATE PAIN LEVEL 4-6 Last administered on 02/11/19at 19:12; Admin Dose 50 MG; Start 02/09/19 at 00:30 Metoprolol Tartrate (Lopressor) 25 mg BID PO Last administered on 02/12/19at 08:32; Admin Dose 25 MG; Start 02/09/19 at 21:00 Atorvastatin Calcium (Lipitor) 40 mg HS PO Last administered on 02/11/19at 20:17; Admin Dose 40 MG; Start 02/09/19 at 21:00 Diagnostic Test (Pha) (Accu-Chek) 1 ea 02 XX Last administered on 02/12/19at 01:59; Admin Dose 1 EA; Start 02/10/19 at 02:00 Insulin Aspart (Novolog Insulin Pen) NOVOLOG *MODERATE* ALGORITHM WITH MEALS BEDTIME SC Last administered on 02/12/19at 11:58; Admin Dose 6 UNIT; Start 02/09/19 at 11:30 Miscellaneous Information 1 ea NOTE XX ; Start 02/09/19 at 11:00 Glucose (Glutose) 15 gm Q15M PRN PO DECREASED GLUCOSE; Start 02/09/19 at 11:00 Glucose (Glutose) 22.5 gm Q15M PRN PO DECREASED GLUCOSE; Start 02/09/19 at 11:00 Dextrose (D50w Syringe) 25 ml Q15M PRN IV DECREASED GLUCOSE; Start 02/09/19 at 11:00 Dextrose (D50w Syringe) 50 ml Q15M PRN IV DECREASED GLUCOSE; Start 02/09/19 at 11:00 Glucagon (Glucagen) 1 mg Q15M PRN IM DECREASED GLUCOSE; Start 02/09/19 at 11:00 Glucose (Glutose) 15 gm Q15M PRN BUCCAL DECREASED GLUCOSE; Start 02/09/19 at 11:00 Lisinopril (Zestril) 5 mg DAILY PO Last administered on 02/12/19 08:32; Admin Dose 5 MG; Start 02/10/19 at 09:00 Insulin Glargine (Lantus) 15 units DAILY@1999 SC Last administered on 02/11/19 20:27; Admin Dose 15 UNITS; Start 02/10/19 at 20:00 Insulin Aspart (Novolog Insulin Pen) 6 unit WITH MEALS SC Last administered on 02/12/19at 12:04; Admin Dose 6 UNIT; Start 02/10/19 at 11:30 Famotidine (Pepcid) 20 mg BID@08,20 PO Last administered on 02/12/19 08:32; Admin Dose 20 MG; Start 02/10/19 at 20:00 Hydromorphone HCl (Dilaudid) 1 mg Q4H PRN IV SEVERE PAIN LEVEL 7-10 Last administered on 02/12/19at 05:27; Admin Dose 1 MG; Start 02/12/19 at 00:00 VTE Prophylaxis Risk score (from Ns)>0 risk: 6 SCD applied (from Ns): Yes Lines/Catheters IV Catheter Type: Jackson in Place: No Assessment/Plan Hospital Course Subjective Patient doing well after CABG, chest tube removed Objective Physical exam General: Patient is laying in bed and answers questions appropriately Mentation: Patient is alert and oriented 4, Head: Normocephalic atraumatic Eyes: EOMI, pupils reactive to light Neck: Supple, nontender, midline Respiratory: Clear to auscultation bilaterally Cardiovascular: regular rate, no obvious murmurs Gastrointestinal: non-tender to palpation, bowel sounds heard. Neurological: Moves all extremities spontaneously Skin: Surgical site bandaged Assessment/Plan 1. CAD s/p LHC on 02/03/2019 with 3 vessel disease, s/p 3V CABG on 02/08/19 - Cardiology on board and appreciate recommends. Continue current treatment - CT surgery recs appreciated 2. Diabetes mellitus - A1c noted - continue on Lantus - ISS and accuchecks 3. Hypertension - stable - will adjust medications as needed 4. HLD - continue statin 5. BPH - continue on flomax when tolerating 6. Disposition - cardiology/CT surgery recs appreciated - chest tube removed -Home health PT being set up by counseling case manager, plan is to DC on Thursday to patient's daughters house, patient request Thursday DC as there is some administrative concerns that he needs to do on Thursday in order to transition him from his long term house to his daughter's house. VIKAS GALEANO Feb 12, 2019 12:57
[2019-02-12] MEDS: metFORMIN 500 MG TAB PO SCH (17:07)
[2019-02-12] MEDS: ATORVASTATIN 40 MG TAB PO SCH (20:29)
[2019-02-12] MEDS: INSULIN GLARGINE [LANTus] (100 UNITS/ML) SYG SC SCH (21:42)
[2019-02-13] VITALS (12 sets, daily range): BP systolic 111–156; BP diastolic 56–84; PULSE 65–77; RESP 18–20
[2019-02-13] MEDS: ACCU-CHEK XX SCH (02:25)
[2019-02-13] MEDS: HYDROmorphONE 1 MG/ML SYG IV PRN ×2 (07:27→13:09)
[2019-02-13] MEDS: ASPIRIN 325 MG TAB PO SCH (08:29)
[2019-02-13] MEDS: FAMOTIDINE 20 MG TAB PO SCH ×2 (08:29→20:30)
[2019-02-13] MEDS: LISINOPRIL 5 MG TAB PO SCH (08:29)
[2019-02-13] MEDS: metFORMIN 500 MG TAB PO SCH ×2 (08:29→17:45)
[2019-02-13] MEDS: METOPROLOL 25 MG TAB PO SCH ×2 (08:30→20:31)
[2019-02-13] MEDS: ENOXAPARIN 40 MG/0.4 ML SYG SC SCH (08:37)
[2019-02-13] MEDS: INSULIN ASPART [NOVOLOG] 3 ML PEN SC SCH ×7 (08:37→20:37)
[2019-02-13] MEDS: LISINOPRIL 10 MG TAB PO SCH (09:40)
--- NOTE | 2019-02-13 09:53 | PN ---
Date/Time of Note Date/Time of Note DATE: 02/13/19 TIME: 09:52 Assessment/Plan VTE Prophylaxis Risk score (from Nsg)>0 risk: 6 SCD applied (from Nsg): Yes Pharmacological prophylaxis: LMWH Lines/Catheters IV Catheter Type (from Nrs): Saline Lock Urinary Cath still in place: No Assessment/Plan Hospital Course Eating lunch. Feels well. OK for CABG tomorrow Assessment/Plan RA. NSR. Ambulating. Incision OK. OK for discharge anytime. OK to shower. Result Diagram: 02/13/1962502/13/19625 Results 24hrs Laboratory Tests Test 02/12/19 11:36 02/12/19 17:07 02/12/19 20:31 02/13/19 02:24 Bedside Glucose 244 H 274 H 192 136 Test 02/13/19 06:26 02/13/19 07:57 White Blood Count 7.1 Red Blood Count 3.30 L Hemoglobin 9.9 L Hematocrit 29.5 L Mean Corpuscular 89.4 Volume Mean Corpuscular 30.0 Hemoglobin Mean Corpuscular 33.6 Hemoglobin Concent Red Cell 13.4 Distribution Width Platelet Count 237 Mean Platelet Volume 10.4 Immature 0.600 H Granulocytes % Neutrophils % 55.1 Lymphocytes % 28.4 Monocytes % 11.2 H Eosinophils % 4.3 Basophils % 0.4 Nucleated Red Blood 0.0 Cells % Immature 0.040 H Granulocytes # Neutrophils # 3.9 Lymphocytes # 2.0 Monocytes # 0.8 Eosinophils # 0.3 Basophils # 0.0 Nucleated Red Blood 0.0 Cells # Sodium Level 139 Potassium Level 4.6 Chloride Level 106 Carbon Dioxide Level 24 Anion Gap 9 Blood Urea Nitrogen 15 # Creatinine 0.64 Est Glomerular > 60 Filtrat Rate mL/min Glucose Level 153 Calcium Level 9.1 Phosphorus Level 4.3 Magnesium Level 1.8 Bedside Glucose 195 Exam/Review of Systems Exam Vitals Vital Signs Date Temp Pulse Resp B/P (MAP) Pulse Ox O2 O2 Flow FiO2 Time Delivery Rate 02/13/19 77 08:00 02/13/19 98.7 20 129/77 95 07:46 (94) 02/13/19 Room Air 05:02 02/10/19 2.0 06:00 02/10/19 27 05:51 Intake and Output 02/12/19 02/12/1919 1515:00 23:00 07:00 IntakeIntake Total 880 ml 480 ml BalanceBalance 880 ml 480 ml Results Results 24hrs Laboratory Tests Test 02/12/19 11:36 02/12/19 17:07 02/12/19 20:31 02/13/19 02:24 Bedside Glucose 244 H 274 H 192 136 Test 02/13/19 06:26 02/13/19 07:57 White Blood Count 7.1 Red Blood Count 3.30 L Hemoglobin 9.9 L Hematocrit 29.5 L Mean Corpuscular 89.4 Volume Mean Corpuscular 30.0 Hemoglobin Mean Corpuscular 33.6 Hemoglobin Concent Red Cell 13.4 Distribution Width Platelet Count 237 Mean Platelet Volume 10.4 Immature 0.600 H Granulocytes % Neutrophils % 55.1 Lymphocytes % 28.4 Monocytes % 11.2 H Eosinophils % 4.3 Basophils % 0.4 Nucleated Red Blood 0.0 Cells % Immature 0.040 H Granulocytes # Neutrophils # 3.9 Lymphocytes # 2.0 Monocytes # 0.8 Eosinophils # 0.3 Basophils # 0.0 Nucleated Red Blood 0.0 Cells # Sodium Level 139 Potassium Level 4.6 Chloride Level 106 Carbon Dioxide Level 24 Anion Gap 9 Blood Urea Nitrogen 15 # Creatinine 0.64 Est Glomerular > 60 Filtrat Rate mL/min Glucose Level 153 Calcium Level 9.1 Phosphorus Level 4.3 Magnesium Level 1.8 Bedside Glucose 195 Medications Medication Current Medications Miscellaneous Information (* Miscellaneous Pharmacy Order) Treatment of Hypoglycemia: 1.BG 51... Per protocol XX ; Start 02/08/19 at 17:00 Dextrose (D50w Syringe) 25 ml Q15M PRN IV .DECREASED GLUCOSE; Start 02/08/19 at 17:00 Dextrose (D50w Syringe) 50 ml Q15M PRN IV .DECREASED GLUCOSE; Start 02/08/19 at 17:00 Hydromorphone HCl (Dilaudid) 0.2 mg Q15M PRN IV PAIN LEVEL 1-5 Last administered on 02/08/19at 22:40; Admin Dose 0.2 MG; Start 02/08/19 at 17:00 Hydromorphone HCl (Dilaudid) 0.4 mg Q15M PRN IV PAIN LEVEL 6-10 Last administered on 02/11/19at 21:55; Admin Dose 0.4 MG; Start 02/08/19 at 17:00 Ondansetron HCl (Zofran Inj) 4 mg Q6H PRN IV NAUSEA AND/OR VOMITING; Start 02/08/19 at 17:00 Aspirin (Aspirin) 325 mg DAILY PO Last administered on 02/13/19 08:29; Admin Dose 325 MG; Start 02/09/19 at 09:00 Acetaminophen (Tylenol Tab) 650 mg Q3H PRN PO ELEVATED TEMPERATURE Last administered on 02/09/19 08:49; Admin Dose 650 MG; Start 02/08/19 at 17:00 Magnesium Sulfate/ Dextrose 100 ml @ 100 mls/hr PRN PRN IVPB PENDING LAB VALUE; Start 02/08/19 at 17:00 Enoxaparin Sodium (Lovenox) 40 mg DAILY SC Last administered on 02/13/19 08:37; Admin Dose 40 MG; Start 02/09/19 at 09:00 Tramadol HCl (Ultram) 50 mg Q6H PRN PO MODERATE PAIN LEVEL 4-6 Last administered on 02/11/19 19:12; Admin Dose 50 MG; Start 02/09/19 at 00:30 Metoprolol Tartrate (Lopressor) 25 mg BID PO Last administered on 02/13/19 08:30; Admin Dose 25 MG; Start 02/09/19 at 21:00 Atorvastatin Calcium (Lipitor) 40 mg HS PO Last administered on 02/12/19 20:29; Admin Dose 40 MG; Start 02/09/19 at 21:00 Diagnostic Test (Pha) (Accu-Chek) 1 ea 02 XX Last administered on 02/13/19at 02:25; Admin Dose 1 EA; Start 02/10/19 at 02:00 Insulin Aspart (Novolog Insulin Pen) NOVOLOG *MODERATE* ALGORITHM WITH MEALS BEDTIME SC Last administered on 02/13/19 08:37; Admin Dose 4 UNIT; Start 02/09/19 at 11:30 Miscellaneous Information 1 ea NOTE XX ; Start 02/09/19 at 11:00 Glucose (Glutose) 15 gm Q15M PRN PO DECREASED GLUCOSE; Start 02/09/19 at 11:00 Glucose (Glutose) 22.5 gm Q15M PRN PO DECREASED GLUCOSE; Start 02/09/19 at 11:00 Dextrose (D50w Syringe) 25 ml Q15M PRN IV DECREASED GLUCOSE; Start 02/09/19 at 11:00 Dextrose (D50w Syringe) 50 ml Q15M PRN IV DECREASED GLUCOSE; Start 02/09/19 at 11:00 Glucagon (Glucagen) 1 mg Q15M PRN IM DECREASED GLUCOSE; Start 02/09/19 at 11:00 Glucose (Glutose) 15 gm Q15M PRN BUCCAL DECREASED GLUCOSE; Start 02/09/19 at 11:00 Insulin Glargine (Lantus) 15 units DAILY@2000 SC Last administered on 02/12/19 21:42; Admin Dose 15 UNITS; Start 02/10/19 at 20:00 Insulin Aspart (Novolog Insulin Pen) 6 unit WITH MEALS SC Last administered on 02/13/19 08:37; Admin Dose 6 UNIT; Start 02/10/19 at 11:30 Famotidine (Pepcid) 20 mg BID@08,20 PO Last administered on 02/13/19 08:29; Ad min Dose 20 MG; Start 02/10/19 at 20:00 Hydromorphone HCl (Dilaudid) 1 mg Q4H PRN IV SEVERE PAIN LEVEL 7-10 Last administered on 02/13/19 07:27; Admin Dose 1 MG; Start 02/12/19 at 00:00 Metformin HCl (Glucophage) 1,000 mg BID WITH MEALS PO Last administered on 02/13/19 08:29; Admin Dose 1,000 MG; Start 02/12/19 at 17:55 Lisinopril (Zestril) 10 mg DAILY PO Last administered on 02/13/19 09:40; Admin Dose 5 MG; Start 02/13/19 at 09:00 DOMINICK ARMSTRONG MD Feb 13, 2019 09:53
--- NOTE | 2019-02-13 11:09 | CONS ---
Consult Date/Type/Reason Admit Date/Time Feb 03, 2019 at 18:10 Initial Consult Date 02/04/19 Type of Consultation: CV Requesting Provider: Jd Santos DO Date/Time of Note DATE: 02/13/19 TIME: 11:06 Subjective CARDIOLOGY FOLLOW UP NOTE (COVERING DR GALLOWAY) S; D/W staff and tele was reviewed pt remains in NSR No chest pain or pressure no but complains of lower back pain Objective: General: no acute distress HEENT: NC/AT. pupils are equal. round. NECK: NO JVD. no stridor. CV: RRR. systolic murmur; no gallop or rubs. PULM: no wheezing or rhonchi. Chest: Status post sternotomy GI: SOFT, NT, ND, no rebound or guarding Extremity: 1+ B/L LE edema. no clubbing. neuro: awake and alert, OX3. Psych: calm and pleasant rectal: deferred : normal Objective Vitals Vital Signs Date Temp Pulse Resp B/P (MAP) Pulse Ox O2 O2 Flow FiO2 Time Delivery Rate 02/13/19 77 08:00 02/13/19 98.7 20 129/77 95 07:46 (94) 02/13/19 Room Air 05:02 02/10/19 2.0 06:00 02/10/19 27 05:51 Intake and Output 02/12/19 02/12/19 02/13/19 1515:00 23:00 07:00 IntakeIntake Total 880 ml 480 ml BalanceBalance 880 ml 480 ml Results/Medications Result Diagram: 02/13/1962502/13/19 06 Results 24 hrs Laboratory Tests Test 02/12/19 11:36 02/12/19 17:07 02/12/19 20:31 02/13/19 02:24 Bedside Glucose 244 H 274 H 192 136 Test 02/13/19 06:26 02/13/19 07:57 White Blood Count 7.1 Red Blood Count 3.30 L Hemoglobin 9.9 L Hematocrit 29.5 L Mean Corpuscular 89.4 Volume Mean Corpuscular 30.0 Hemoglobin Mean Corpuscular 33.6 Hemoglobin Concent Red Cell 13.4 Distribution Width Platelet Count 237 Mean Platelet Volume 10.4 Immature 0.600 H Granulocytes % Neutrophils % 55.1 Segmented 52 Neutrophils % (Manual) Band Neutrophils % 5 H (Manual) Lymphocytes % 28.4 Lymphocytes % 30 (Manual) Reactive Lymphocytes 3 H % (Manual) Monocytes % 11.2 H Monocytes % (Manual) 9 Eosinophils % 4.3 Eosinophils % 1 (Manual) Basophils % 0.4 Nucleated Red Blood 0.0 Cells % Immature 0.040 H Granulocytes # Neutrophils # 3.9 Neutrophils # 3.7 (Manual) Band Neutrophils # 0.3 Lymphocytes (Manual) 2.1 Lymphocytes # 2.0 Reactive Lymphocytes 0.2 H # Monocytes # 0.8 Monocytes # (Manual) 0.6 Eosinophils # 0.3 Basophils # 0.0 Nucleated Red Blood 0.0 Cells # Platelet Estimate NORMAL Giant Platelets 1 H Polychromasia 1+ Poikilocytosis 1+ Sodium Level 139 Potassium Level 4.6 Chloride Level 106 Carbon Dioxide Level 24 Anion Gap 9 Blood Urea Nitrogen 15 # Creatinine 0.64 Est Glomerular > 60 Filtrat Rate mL/min Glucose Level 153 Calcium Level 9.1 Phosphorus Level 4.3 Magnesium Level 1.8 Bedside Glucose 195 Home Meds Reported Medications Insulin Glargine* (Lantus*) 100 Unit/Ml Soln, 12 UNIT SC QHS, #1 VIAL 02/02/19 Aspirin* (Aspirin*) 325 Mg Tablet, 325 MG PO DAILY, TAB 02/02/19 Duloxetine Hcl* (Duloxetine Hcl*) 60 Mg Capsule.dr, 60 MG PO DAILY, #30 CAP 02/02/19 Tamsulosin Hcl* (Tamsulosin Hcl*) 0.4 Mg Cap.er.24h, 0.4 MG PO HS, CAP 02/02/19 Atorvastatin* (Atorvastatin*) 80 Mg Tablet, 80 MG PO QHS, #30 TAB 02/02/19 Lisinopril* (Lisinopril*) 40 Mg Tablet, 40 MG PO DAILY, #30 TAB 02/02/19 Glipizide* (Glipizide*) 10 Mg Tablet, 10 MG PO DAILY, TAB 02/02/19 Carvedilol* (Carvedilol*) 6.25 Mg Tablet, 6.25 MG PO BID, #60 TAB 02/02/19 Metformin* (Glucophage*) 1,000 Mg Tablet, 1000 MG PO DAILY, #60 TAB 02/02/19 Medications Current Medications Miscellaneous Information (* Miscellaneous Pharmacy Order) Treatment of Hypoglycemia: 1.BG 51... Per protocol XX ; Start 02/08/19 at 17:00 Dextrose (D50w Syringe) 25 ml Q15M PRN IV .DECREASED GLUCOSE; Start 02/08/19 at 17:00 Dextrose (D50w Syringe) 50 ml Q15M PRN IV .DECREASED GLUCOSE; Start 02/08/19 at 17:00 Hydromorphone HCl (Dilaudid) 0.2 mg Q15M PRN IV PAIN LEVEL 1-5 Last administered on 02/08/19 22:40; Admin Dose 0.2 MG; Start 02/08/19 at 17:00 Hydromorphone HCl (Dilaudid) 0.4 mg Q15M PRN IV PAIN LEVEL 6-10 Last administered on 02/11/19 21:55; Admin Dose 0.4 MG; Start 02/08/19 at 17:00 Ondansetron HCl (Zofran Inj) 4 mg Q6H PRN IV NAUSEA AND/OR VOMITING; Start 02/08/19 at 17:00 Aspirin (Aspirin) 325 mg DAILY PO Last administered on 02/13/19 08:29; Admin Dose 325 MG; Start 02/09/19 at 09:00 Acetaminophen (Tylenol Tab) 650 mg Q3H PRN PO ELEVATED TEMPERATURE Last administered on 02/09/19 08:49; Admin Dose 650 MG; Start 02/08/19 at 17:00 Magnesium Sulfate/ Dextrose 100 ml @ 100 mls/hr PRN PRN IVPB PENDING LAB VALUE; Start 02/08/19 at 17:00 Enoxaparin Sodium (Lovenox) 40 mg DAILY SC Last administered on 02/13/19 08: 37; Admin Dose 40 MG; Start 02/09/19 at 09:00 Tramadol HCl (Ultram) 50 mg Q6H PRN PO MODERATE PAIN LEVEL 4-6 Last administered on 02/11/19 19:12; Admin Dose 50 MG; Start 02/09/19 at 00:30 Metoprolol Tartrate (Lopressor) 25 mg BID PO Last administered on 02/13/19 08:30; Admin Dose 25 MG; Start 02/09/19 at 21:00 Atorvastatin Calcium (Lipitor) 40 mg HS PO Last administered on 02/12/19 20:29; Admin Dose 40 MG; Start 02/09/19 at 21:00 Diagnostic Test (Pha) (Accu-Chek) 1 ea 02 XX Last administered on 02/13/19at 02:25; Admin Dose 1 EA; Start 02/10/19 at 02:00 Insulin Aspart (Novolog Insulin Pen) NOVOLOG *MODERATE* ALGORITHM WITH MEALS BEDTIME SC Last administered on 02/13/19 08:37; Admin Dose 4 UNIT; Start 02/09/19 at 11:30 Miscellaneous Information 1 ea NOTE XX ; Start 02/09/19 at 11:00 Glucose (Glutose) 15 gm Q15M PRN PO DECREASED GLUCOSE; Start 02/09/19 at 11:00 Glucose (Glutose) 22.5 gm Q15M PRN PO DECREASED GLUCOSE; Start 02/09/19 at 11:00 Dextrose (D50w Syringe) 25 ml Q15M PRN IV DECREASED GLUCOSE; Start 02/09/19 at 11:00 Dextrose (D50w Syringe) 50 ml Q15M PRN IV DECREASED GLUCOSE; Start 02/09/19 at 11:00 Glucagon (Glucagen) 1 mg Q15M PRN IM DECREASED GLUCOSE; Start 02/09/19 at 11:00 Glucose (Glutose) 15 gm Q15M PRN BUCCAL DECREASED GLUCOSE; Start 02/09/19 at 11:00 Insulin Glargine (Lantus) 15 units DAILY@2000 SC Last administered on 02/12/19at 21:42; Admin Dose 15 UNITS; Start 02/10/19 at 20:00 Insulin Aspart (Novolog Insulin Pen) 6 unit WITH MEALS SC Last administered on 02/13/19 08:37; Admin Dose 6 UNIT; Start 02/10/19 at 11:30 Famotidine (Pepcid) 20 mg BID@08,20 PO Last administered on 02/13/19 08:29; Admin Dose 20 MG; Start 02/10/19 at 20:00 Hydromorphone HCl (Dilaudid) 1 mg Q4H PRN IV SEVERE PAIN LEVEL 7-10 Last administered on 02/13/19 07:27; Admin Dose 1 MG; Start 02/12/19 at 00:00 Metformin HCl (Glucophage) 1,000 mg BID WITH MEALS PO Last administered on 02/13/19 08:29; Admin Dose 1,000 MG; Start 02/12/19 at 17:55 Lisinopril (Zestril) 10 mg DAILY PO Last administered on 02/13/19at 09:40; Admin Dose 5 MG; Start 02/13/19 at 09:00 Assessment/Plan Hospital Course (Demo Recall) 1) Three-vessel coronary artery disease left heart catheterization 02/02/2019 - s/p CABG 2) Diabetes 3) Hypertension 4) Dyslipidemia 5) Preserved ejection fraction Plan: mobilization continue current meds Dr. Vadlez will follow-up tomorrow Thank you OSWALDO LOPEZ MD Feb 13, 2019 11:09
--- NOTE | 2019-02-13 11:37 | PN ---
Date/Time of Note Date/Time of Note DATE: 02/13/19 TIME: 11:36 Objective Vitals Vital Signs Date Temp Pulse Resp B/P (MAP) Pulse Ox O2 O2 Flow FiO2 Time Delivery Rate 02/13/19 98.3 71 20 111/56 98 11:25 (74) 02/13/19 Room Air 05:02 02/10/19 2.0 06:00 02/10/19 27 05:51 Intake and Output 02/12/19 02/12/19 02/13/19 1515:00 23:00 07:00 IntakeIntake Total 880 ml 480 ml BalanceBalance 880 ml 480 ml Results Result Diagram: 02/13/1962502/13/19625 Medications Medications Current Medications Miscellaneous Information (* Miscellaneous Pharmacy Order) Treatment of Hypoglycemia: 1.BG 51... Per protocol XX ; Start 02/08/19 at 17:00 Dextrose (D50w Syringe) 25 ml Q15M PRN IV .DECREASED GLUCOSE; Start 02/08/19 at 17:00 Dextrose (D50w Syringe) 50 ml Q15M PRN IV .DECREASED GLUCOSE; Start 02/08/19 at 17:00 Hydromorphone HCl (Dilaudid) 0.2 mg Q15M PRN IV PAIN LEVEL 1-5 Last admi nistered on 02/08/19at 22:40; Admin Dose 0.2 MG; Start 02/08/19 at 17:00 Hydromorphone HCl (Dilaudid) 0.4 mg Q15M PRN IV PAIN LEVEL 6-10 Last administered on 02/11/19at 21:55; Admin Dose 0.4 MG; Start 02/08/19 at 17:00 Ondansetron HCl (Zofran Inj) 4 mg Q6H PRN IV NAUSEA AND/OR VOMITING; Start 02/08/19 at 17:00 Aspirin (Aspirin) 325 mg DAILY PO Last administered on 02/13/19at 08:29; Admin Dose 325 MG; Start 02/09/19 at 09:00 Acetaminophen (Tylenol Tab) 650 mg Q3H PRN PO ELEVATED TEMPERATURE Last administered on 02/09/19at 08:49; Admin Dose 650 MG; Start 02/08/19 at 17:00 Magnesium Sulfate/ Dextrose 100 ml @ 100 mls/hr PRN PRN IVPB PENDING LAB VALUE; Start 02/08/19 at 17:00 Enoxaparin Sodium (Lovenox) 40 mg DAILY SC Last administered on 02/13/19at 08:37; Admin Dose 40 MG; Start 02/09/19 at 09:00 Tramadol HCl (Ultram) 50 mg Q6H PRN PO MODERATE PAIN LEVEL 4-6 Last administered on 02/11/19 19:12; Admin Dose 50 MG; Start 02/09/19 at 00:30 Metoprolol Tartrate (Lopressor) 25 mg BID PO Last administered on 02/13/19 08:30; Admin Dose 25 MG; Start 02/09/19 at 21:00 Atorvastatin Calcium (Lipitor) 40 mg HS PO Last administered on 02/12/19 20:29; Admin Dose 40 MG; Start 02/09/19 at 21:00 Diagnostic Test (Pha) (Accu-Chek) 1 ea 02 XX Last administered on 02/13/19at 02:25; Admin Dose 1 EA; Start 02/10/19 at 02:00 Insulin Aspart (Novolog Insulin Pen) NOVOLOG *MODERATE* ALGORITHM WITH MEALS BEDTIME SC Last administered on 02/13/19 08:37; Admin Dose 4 UNIT; Start 02/09/19 at 11:30 Miscellaneous Information 1 ea NOTE XX ; Start 02/09/19 at 11:00 Glucose (Glutose) 15 gm Q15M PRN PO DECREASED GLUCOSE; Start 02/09/19 at 11:00 Glucose (Glutose) 22.5 gm Q15M PRN PO DECREASED GLUCOSE; Start 02/09/19 at 11:00 Dextrose (D50w Syringe) 25 ml Q15M PRN IV DECREASED GLUCOSE; Start 02/09/19 at 11:00 Dextrose (D50w Syringe) 50 ml Q15M PRN IV DECREASED GLUCOSE; Start 02/09/19 at 11:00 Glucagon (Glucagen) 1 mg Q15M PRN IM DECREASED GLUCOSE; Start 02/09/19 at 11:00 Glucose (Glutose) 15 gm Q15M PRN BUCCAL DECREASED GLUCOSE; Start 02/09/19 at 11:00 Insulin Glargine (Lantus) 15 units DAILY@2000 SC Last administered on 02/12/19at 21:42; Admin Dose 15 UNITS; Start 02/10/19 at 20:00 Insulin Aspart (Novolog Insulin Pen) 6 unit WITH MEALS SC Last administered on 02/13/19 08:37; Admin Dose 6 UNIT; Start 02/10/19 at 11:30 Famotidine (Pepcid) 20 mg BID@08,20 PO Last administered on 02/13/19 08:29; Admin Dose 20 MG; Start 02/10/19 at 20:00 Hydromorphone HCl (Dilaudid) 1 mg Q4H PRN IV SEVERE PAIN LEVEL 7-10 Last administered on 02/13/19 07:27; Admin Dose 1 MG; Start 02/12/19 at 00:00 Metformin HCl (Glucophage) 1,000 mg BID WITH MEALS PO Last administered on 02/13/19 08:29; Admin Dose 1,000 MG; Start 02/12/19 at 17:55 Lisinopril (Zestril) 10 mg DAILY PO Last administered on 02/13/19 09:40; Admin Dose 5 MG; Start 02/13/19 at 09:00 VTE Prophylaxis Risk score (from Ns)>0 risk: 6 SCD applied (from [facility]): Yes Lines/Catheters IV Catheter Type: Jackson in Place: No Assessment/Plan Hospital Course Subjective Patient doing well, some surgical site pain, but doing well overall Objective Physical exam General: Patient is laying in bed and answers questions appropriately Mentation: Patient is alert and oriented 4, Head: Normocephalic atraumatic Eyes: EOMI, pupils reactive to light Neck: Supple, nontender, midline Respiratory: Clear to auscultation bilaterally Cardiovascular: regular rate, no obvious murmurs Gastrointestinal: non-tender to palpation, bowel sounds heard. Neurological: Moves all extremities spontaneously Skin: Surgical site CDI Assessment/Plan 1. CAD s/p LHC on 02/03/2019 with 3 vessel disease, s/p 3V CABG on 02/08/19 - Cardiology on board and appreciate recommends. Continue current treatment - CT surgery recs appreciated 2. Diabetes mellitus - A1c noted - continue on Lantus - ISS and accuchecks 3. Hypertension - stable - will adjust medications as needed 4. HLD - continue statin 5. BPH - continue on flomax when tolerating 6. Disposition - cardiology/CT surgery recs appreciated - chest tube removed -Home health PT being set up by returned case inspector, plan is to DC on Thursday at earliest (as long as surgeon and cardiology are ok) to patient's daughters house, patient request Thursday DC as there is some administrative concerns that he needs to do on Thursday in order to transition him from his prison house to his daughter's house. VIKAS GALEANO Feb 13, 2019 11:37
[2019-02-13] MEDS: ATORVASTATIN 40 MG TAB PO SCH (20:30)
[2019-02-13] MEDS: INSULIN GLARGINE [LANTus] (100 UNITS/ML) SYG SC SCH (20:37)
[2019-02-14] VITALS (9 sets, daily range): BP systolic 124–142; BP diastolic 70–78; PULSE 61–81; RESP 18–20
[2019-02-14] MEDS: ACCU-CHEK XX SCH (02:55)
[2019-02-14] MEDS: INSULIN ASPART [NOVOLOG] 3 ML PEN SC SCH ×5 (08:10→17:23)
[2019-02-14] MEDS: metFORMIN 500 MG TAB PO SCH ×2 (08:15→17:24)
[2019-02-14] MEDS: FAMOTIDINE 20 MG TAB PO SCH (08:16)
[2019-02-14] MEDS: ASPIRIN 325 MG TAB PO SCH (08:16)
[2019-02-14] MEDS: METOPROLOL 25 MG TAB PO SCH (08:17)
[2019-02-14] MEDS: LISINOPRIL 10 MG TAB PO SCH (08:17)
[2019-02-14] MEDS: ENOXAPARIN 40 MG/0.4 ML SYG SC SCH (08:22)
[2019-02-14] MEDS ORDERED: MAGNESIUM OXIDE 400 MG TAB PO ONE (09:30)
--- NOTE | 2019-02-14 10:08 | PN ---
Date/Time of Note Date/Time of Note DATE: 02/14/19 TIME: 10:07 Assessment/Plan Lines/Catheters IV Catheter Type (from Nrsg): Saline Lock Jackson in Place (from Nrsg): No Assessment/Plan Chief Complaint/Hosp Course s/p cabg pod 6 home f/u justin 1-2 weeks Subjective 24 Hr Interval Summary Constitutional: improved, ambulates Feeding: baseline diet Pain Control: well controlled Exam/Review of Systems Vital Signs Vitals Vital Signs Date Temp Pulse Resp B/P (MAP) Pulse Ox O2 O2 Flow FiO2 Time Delivery Rate 02/14/19 81 08:33 02/14/19 98.9 18 142/72 98 07:16 (95) 02/14/19 Room Air 05:00 Intake and Output 02/13/19 02/13/19 02/14/19 1515:00 23:00 07:00 IntakeIntake Total 1200 ml 500 ml BalanceBalance 1200 ml 500 ml Exam Constitutional: alert, oriented, well developed Head: normocephalic ENMT: nl external ears & nose Neck: supple Respiratory: clear to auscultation Cardiovascular: regular rate and rhythm Musculoskeletal: nl extremities to inspection Neurological: DIRECTOR OF DISTRIBUTION II-XII intact Results Result Diagram: 02/14/1912 02/14/19711 KATLYN COVARRUBIAS MD Feb 14, 2019 10:08
[2019-02-14] MEDS: ACETAMINOPHEN 325 MG TAB PO PRN (10:29)
--- NOTE | 2019-02-14 10:53 | PN ---
Date/Time of Note Date/Time of Note DATE: 02/14/19 TIME: 10:53 Assessment/Plan VTE Prophylaxis Risk score (from Ns)>0 risk: 5 SCD applied (from Ns): No SCD contraindicated: low risk/ambulating Pharmacological prophylaxis: NA/contraindicated Pharm contraindication: low risk/ambulating Lines/Catheters IV [facility] Type (from [facility] Saline Lock Urinary Cath still in place: No Assessment/Plan Assessment/Plan 1. CAD s/p LHC on 02/03/2019 with 3 vessel disease, s/p 3V CABG on 02/08/19 - Cardiology on board and appreciate recommends. Cleared for discharge and will continue current medications - CT surgery recs appreciated and cleared for discharge 2. Diabetes mellitus - A1c noted - continue on Lantus. Adjustments made for better control - ISS and accuchecks 3. Hypertension - stable 4. HLD - continue statin 5. BPH - continue on flomax when tolerating 6. Disposition - Medically stable for discharge home Result Diagram: 02/14/19 0712 02/14/19 0712 Results 24hrs Laboratory Tests Test 02/13/19 12:13 02/13/19 17:38 02/13/19 20:29 02/14/19 02:45 Bedside Glucose 201 191 225 H 182 Test 02/14/19 07:12 02/14/19 07:39 White Blood Count 7.4 Red Blood Count 3.00 L Hemoglobin 9.0 L Hematocrit 27.6 L Mean Corpuscular 92.0 Volume Mean Corpuscular 30.0 Hemoglobin Mean Corpuscular 32.6 Hemoglobin Concent Red Cell 13.2 Distribution Width Platelet Count 269 Mean Platelet Volume 9.9 Immature 0.400 Granulocytes % Neutrophils % 61.5 Lymphocytes % 24.0 Monocytes % 10.0 Eosinophils % 3.7 Basophils % 0.4 Nucleated Red Blood 0.0 Cells % Immature 0.030 Granulocytes # Neutrophils # 4.5 Lymphocytes # 1.8 Monocytes # 0.7 Eosinophils # 0.3 Basophils # 0.0 Nucleated Red Blood 0.0 Cells # Sodium Level 140 Potassium Level 4.5 Chloride Level 102 Carbon Dioxide Level 31 Anion Gap 7 Blood Urea Nitrogen 14 Creatinine 0.69 Est Glomerular > 60 Filtrat Rate mL/min Glucose Level 235 H Calcium Level 8.8 Phosphorus Level 3.7 Magnesium Level 1.7 Bedside Glucose 238 H Subjective 24 Hr Interval Summary Free Text/Dictation Patient still with pain at incision site with movement and coughing but working through discomfort. No acute overnight events. Exam/Review of Systems Exam Vitals Vital Signs Date Temp Pulse Resp B/P (MAP) Pulse Ox O2 O2 Flow FiO2 Time Delivery Rate 02/14/19 81 08:33 02/14/19 98.9 18 142/72 98 07:16 (95) 02/14/19 Room Air 05:00 Intake and Output 02/13/19 02/13/19 02/14/19 1515:00 23:00 07:00 IntakeIntake Total 1200 ml 500 ml BalanceBalance 1200 ml 500 ml Exam General: Patient is laying in bed and answers questions appropriately Neck: Supple, nontender, midline chest: surgical incision site clean and dry Respiratory: Clear to auscultation bilaterally. no wheezing Cardiovascular: regular rate and rhythm, no obvious murmurs Gastrointestinal: soft, non-tender to palpation, bowel sounds heard. Neurological: Moves all extremities spontaneously Results Results 24hrs Laboratory Tests Test 02/13/19 12:13 02/13/19 17:38 02/13/19 20:29 02/14/19 02:45 Bedside Glucose 201 191 225 H 182 Test 02/14/19 07:12 02/14/19 07:39 White Blood Count 7.4 Red Blood Count 3.00 L Hemoglobin 9.0 L Hematocrit 27.6 L Mean Corpuscular 92.0 Volume Mean Corpuscular 30.0 Hemoglobin Mean Corpuscular 32.6 Hemoglobin Concent Red Cell 13.2 Distribution Width Platelet Count 269 Mean Platelet Volume 9.9 Immature 0.400 Granulocytes % Neutrophils % 61.5 Lymphocytes % 24.0 Monocytes % 10.0 Eosinophils % 3.7 Basophils % 0.4 Nucleated Red Blood 0.0 Cells % Immature 0.030 Granulocytes # Neutrophils # 4.5 Lymphocytes # 1.8 Monocytes # 0.7 Eosinophils # 0.3 Basophils # 0.0 Nucleated Red Blood 0.0 Cells # Sodium Level 140 Potassium Level 4.5 Chloride Level 102 Carbon Dioxide Level 31 Anion Gap 7 Blood Urea Nitrogen 14 Creatinine 0.69 Est Glomerular > 60 Filtrat Rate mL/min Glucose Level 235 H Calcium Level 8.8 Phosphorus Level 3.7 Magnesium Level 1.7 Bedside Glucose 238 H Medications Medication Current Medications Miscellaneous Information (* Miscellaneous Pharmacy Order) Treatment of Hypoglycemia: 1.BG 51... Per protocol XX ; Start 02/08/19 at 17:00 Dextrose (D50w Syringe) 25 ml Q15M PRN IV .DECREASED GLUCOSE; Start 02/08/19 at 17:00 Dextrose (D50w Syringe) 50 ml Q15M PRN IV .DECREASED GLUCOSE; Start 02/08/19 at 17:00 Hydromorphone HCl (Dilaudid) 0.2 mg Q15M PRN IV PAIN LEVEL 1-5 Last administered on 02/08/19 22:40; Admin Dose 0.2 MG; Start 02/08/19 at 17:00 Hydromorphone HCl (Dilaudid) 0.4 mg Q15M PRN IV PAIN LEVEL 6-10 Last administered on 02/11/19 21:55; Admin Dose 0.4 MG; Start 02/08/19 at 17:00 Ondansetron HCl (Zofran Inj) 4 mg Q6H PRN IV NAUSEA AND/OR VOMITING; Start 02/08/19 at 17:00 Aspirin (Aspirin) 325 mg DAILY PO Last administered on 02/14/19 08:16; Admin Dose 325 MG; Start 02/09/19 at 09:00 Acetaminophen (Tylenol Tab) 650 mg Q3H PRN PO ELEVATED TEMPERATURE Last administered on 02/14/19 10:29; Admin Dose 650 MG; Start 02/08/19 at 17:00 Magnesium Sulfate/ Dextrose 100 ml @ 100 mls/hr PRN PRN IVPB PENDING LAB VALUE; Start 02/08/19 at 17:00 Enoxaparin Sodium (Lovenox) 40 mg DAILY SC Last administered on 02/14/19 08:22; Admin Dose 40 MG; Start 02/09/19 at 09:00 Tramadol HCl (Ultram) 50 mg Q6H PRN PO MODERATE PAIN LEVEL 4-6 Last administered on 02/11/19 19:12; Admin Dose 50 MG; Start 02/09/19 at 00:30 Metoprolol Tartrate (Lopressor) 25 mg BID PO Last administered on 02/14/19 08:17; Admin Dose 25 MG; Start 02/09/19 at 21:00 Atorvastatin Calcium (Lipitor) 40 mg HS PO Last administered on 02/13/19 20:30; Admin Dose 40 MG; Start 02/09/19 at 21:00 Diagnostic Test (Pha) (Accu-Chek) 1 ea 02 XX Last administered on 02/14/19at 02:55; Admin Dose 1 EA; Start 02/10/19 at 02:00 Insulin Aspart (Novolog Insulin Pen) NOVOLOG *MODERATE* ALGORITHM WITH MEALS BEDTIME SC Last administered on 02/14/19 08:10; Admin Dose 8 UNIT; Start 02/09/19 at 11:30 Miscellaneous Information 1 ea NOTE XX ; Start 02/09/19 at 11:00 Glucose (Glutose) 15 gm Q15M PRN PO DECREASED GLUCOSE; Start 02/09/19 at 11:00 Glucose (Glutose) 22.5 gm Q15M PRN PO DECREASED GLUCOSE; Start 02/09/19 at 11:00 Dextrose (D50w Syringe) 25 ml Q15M PRN IV DECREASED GLUCOSE; Start 02/09/19 at 11:00 Dextrose (D50w Syringe) 50 ml Q15M PRN IV DECREASED GLUCOSE; Start 02/09/19 at 11:00 Glucagon (Glucagen) 1 mg Q15M PRN IM DECREASED GLUCOSE; Start 02/09/19 at 11:00 Glucose (Glutose) 15 gm Q15M PRN BUCCAL DECREASED GLUCOSE; Start 02/09/19 at 11:00 Insulin Glargine (Lantus) 15 units DAILY@2000 SC Last administered on 02/13/19at 20:37; Admin Dose 15 UNITS; Start 02/10/19 at 20:00 Insulin Aspart (Novolog Insulin Pen) 6 unit WITH MEALS SC Last administered on 02/14/19 08:11; Admin Dose 6 UNIT; Start 02/10/19 at 11:30 Famotidine (Pepcid) 20 mg BID@08,20 PO Last administered on 02/14/19 08:16; Admin Dose 20 MG; Start 02/10/19 at 20:00 Hydromorphone HCl (Dilaudid) 1 mg Q4H PRN IV SEVERE PAIN LEVEL 7-10 Last administered on 02/13/19at 13:09; Admin Dose 1 MG; Start 02/12/19 at 00:00 Metformin HCl (Glucophage) 1,000 mg BID WITH MEALS PO Last administered on 02/14/19 08:15; Admin Dose 1,000 MG; Start 02/12/19 at 17:55 Lisinopril (Zestril) 10 mg DAILY PO Last administered on 02/14/19at 08:17; Admin Dose 10 MG; Start 02/13/19 at 09:00 AIDAN PERKINS MD Feb 14, 2019 10:53
[2019-02-14] MEDS ORDERED: MAGNESIUM SULFATE 3 GM in SOD CHLORIDE 0.9% 100 ML IVPB ONE (12:30)
[2019-02-14] MEDS ORDERED: FUROSEMIDE 40 MG INJ IV ONE (12:30)
--- NOTE | 2019-02-14 12:51 | CONS ---
Assessment/Plan Assessment/Plan Hospital Course (Demo Recall) CAD status post CABG Diabetes Hypertension Dyslipidemia Preserved ejection fraction -Doing well postoperatively. -Mild congestion on chest x-ray and lower extremity edema, will give 1 dose of I V Lasix now and continue on p.o. Lasix 20 mg daily as needed -Adjust aspirin 81 mg, continue statin therapy, beta-frankie, SAJI inhibitor -DC planning Consultation Date/Type/Reason Admit Date/Time Feb 03, 2019 at 18:10 Initial Consult Date Type of Consult Cardiology Requesting Provider: Jd Santos DO Date/Time of Note DATE: 02/14/19 TIME: 12:50 24 HR Interval Summary Free Text/Dictation Denies shortness of breath, chest wall pain improving. Denies palpitations Exam/Review of Systems Vital Signs Vitals Vital Signs Date Temp Pulse Resp B/P (MAP) Pulse Ox O2 O2 Flow FiO2 Time Delivery Rate 02/14/19 67 12:09 02/14/19 98.6 18 135/78 98 11:29 (97) 02/14/19 Room Air 05:00 Intake and Output 02/13/19 02/13/19 02/14/19 1515:00 23:00 07:00 IntakeIntake Total 1200 ml 500 ml BalanceBalance 1200 ml 500 ml Exam Constitutional: alert, oriented (No apparent distress) Head: normocephalic Respiratory: other (Coarse breath sounds bilaterally, no wheezing) Cardiovascular: regular rate and rhythm (S1-S2 heard) Gastrointestinal: soft, non-tender, bowel sounds Extremities: edema Labs Result Diagram: 02/14/19 0712 02/14/19 0712 Results 24hrs Laboratory Tests Test 02/13/19 17:38 02/13/19 20:29 02/14/19 02:45 02/14/19 07:12 Bedside Glucose 191 225 H 182 White Blood Count 7.4 Red Blood Count 3.00 L Hemoglobin 9.0 L Hematocrit 27.6 L Mean Corpuscular 92.0 Volume Mean Corpuscular 30.0 Hemoglobin Mean Corpuscular 32.6 Hemoglobin Concent Red Cell 13.2 Distribution Width Platelet Count 269 Mean Platelet Volume 9.9 Immature 0.400 Granulocytes % Neutrophils % 61.5 Lymphocytes % 24.0 Monocytes % 10.0 Eosinophils % 3.7 Basophils % 0.4 Nucleated Red Blood 0.0 Cells % Immature 0.030 Granulocytes # Neutrophils # 4.5 Lymphocytes # 1.8 Monocytes # 0.7 Eosinophils # 0.3 Basophils # 0.0 Nucleated Red Blood 0.0 Cells # Sodium Level 140 Potassium Level 4.5 Chloride Level 102 Carbon Dioxide Level 31 Anion Gap 7 Blood Urea Nitrogen 14 Creatinine 0.69 Est Glomerular > 60 Filtrat Rate mL/min Glucose Level 235 H Calcium Level 8.8 Phosphorus Level 3.7 Magnesium Level 1.7 Test 02/14/19 07:39 02/14/19 12:20 Bedside Glucose 238 H 108 Medications Medications Current Medications Miscellaneous Information (* Miscellaneous Pharmacy Order) Treatment of Hypoglycemia: 1.BG 51... Per protocol XX ; Start 02/08/19 at 17:00 Dextrose (D50w Syringe) 25 ml Q15M PRN IV .DECREASED GLUCOSE; Start 02/08/19 at 17:00 Dextrose (D50w Syringe) 50 ml Q15M PRN IV .DECREASED GLUCOSE; Start 02/08/19 at 17:00 Hydromorphone HCl (Dilaudid) 0.2 mg Q15M PRN IV PAIN LEVEL 1-5 Last administered on 02/08/19at 22:40; Admin Dose 0.2 MG; Start 02/08/19 at 17:00 Hydromorphone HCl (Dilaudid) 0.4 mg Q15M PRN IV PAIN LEVEL 6-10 Last administered on 02/11/19at 21:55; Admin Dose 0.4 MG; Start 02/08/19 at 17:00 Ondansetron HCl (Zofran Inj) 4 mg Q6H PRN IV NAUSEA AND/OR VOMITING; Start 02/08/19 at 17:00 Aspirin (Aspirin) 325 mg DAILY PO Last administered on 02/14/19at 08:16; Admin Dose 325 MG; Start 02/09/19 at 09:00 Acetaminophen (Tylenol Tab) 650 mg Q3H PRN PO ELEVATED TEMPERATURE Last administered on 02/14/19at 10:29; Admin Dose 650 MG; Start 02/08/19 at 17:00 Magnesium Sulfate/ Dextrose 100 ml @ 100 mls/hr PRN PRN IVPB PENDING LAB VALUE; Start 02/08/19 at 17:00 Enoxaparin Sodium (Lovenox) 40 mg DAILY SC Last administered on 02/14/19at 08:22; Admin Dose 40 MG; Start 02/09/19 at 09:00 Tramadol HCl (Ultram) 50 mg Q6H PRN PO MODERATE PAIN LEVEL 4-6 Last administered on 02/11/19at 19:12; Admin Dose 50 MG; Start 02/09/19 at 00:30 Metoprolol Tartrate (Lopressor) 25 mg BID PO Last administered on 02/14/19 08:17; Admin Dose 25 MG; Start 02/09/19 at 21:00 Atorvastatin Calcium (Lipitor) 40 mg HS PO Last administered on 02/13/19at 20:30; Admin Dose 40 MG; Start 02/09/19 at 21:00 Diagnostic Test (Pha) (Accu-Chek) 1 ea 02 XX Last administered on 02/14/19at 02:55; Admin Dose 1 EA; Start 02/10/19 at 02:00 Insulin Aspart (Novolog Insulin Pen) NOVOLOG *MODERATE* ALGORITHM WITH MEALS BEDTIME SC Last administered on 02/14/19 08:10; Admin Dose 8 UNIT; Start 02/09/19 at 11:30 Miscellaneous Information 1 ea NOTE XX ; Start 02/09/19 at 11:00 Glucose (Glutose) 15 gm Q15M PRN PO DECREASED GLUCOSE; Start 02/09/19 at 11:00 Glucose (Glutose) 22.5 gm Q15M PRN PO DECREASED GLUCOSE; Start 02/09/19 at 11:00 Dextrose (D50w Syringe) 25 ml Q15M PRN IV DECREASED GLUCOSE; Start 02/09/19 at 11:00 Dextrose (D50w Syringe) 50 ml Q15M PRN IV DECREASED GLUCOSE; Start 02/09/19 at 11:00 Glucagon (Glucagen) 1 mg Q15M PRN IM DECREASED GLUCOSE; Start 02/09/19 at 11:00 Glucose (Glutose) 15 gm Q15M PRN BUCCAL DECREASED GLUCOSE; Start 02/09/19 at 11:00 Insulin Glargine (Lantus) 15 units DAILY@2000 SC Last administered on 02/13/19at 20:37; Admin Dose 15 UNITS; Start 02/10/19 at 20:00 Insulin Aspart (Novolog Insulin Pen) 6 unit WITH MEALS SC Last administered on 02/14/19 12:25; Admin Dose 6 UNIT; Start 02/10/19 at 11:30 Famotidine (Pepcid) 20 mg BID@08,20 PO Last administered on 02/14/19at 08:16; Admin Dose 20 MG; Start 02/10/19 at 20:00 Hydromorphone HCl (Dilaudid) 1 mg Q4H PRN IV SEVERE PAIN LEVEL 7-10 Last admin istered on 02/13/19at 13:09; Admin Dose 1 MG; Start 02/12/19 at 00:00 Metformin HCl (Glucophage) 1,000 mg BID WITH MEALS PO Last administered on 02/14/19at 08:15; Admin Dose 1,000 MG; Start 02/12/19 at 17:55 Lisinopril (Zestril) 10 mg DAILY PO Last administered on 02/14/19at 08:17; Admin Dose 10 MG; Start 02/13/19 at 09:00 Furosemide (Lasix) 20 mg DAILY PO ; Start 02/15/19 at 09:00 Magnesium Sulfate 3 gm/Sodium Chloride 106 ml @ 35.333 mls/ hr ONCE ONCE IVPB ; Start 02/14/19 at 12:30; Stop 02/14/19 at 15:29 Jd Santos DO Feb 14, 2019 12:51
--- NOTE | 2019-02-14 13:11 | PN ---
Date/Time of Note Date/Time of Note DATE: 02/08/19 TIME: 13:10 Objective Vitals Vital Signs Date Temp Pulse Resp B/P (MAP) Pulse Ox O2 O2 Flow FiO2 Time Delivery Rate 02/14/19 67 12:09 02/14/19 98.6 18 135/78 98 11:29 (97) 02/14/19 Room Air 05:00 Intake and Output 02/13/19 02/13/19 02/14/19 1414:59 22:59 06:59 IntakeIntake Total 1200 ml 500 ml BalanceBalance 1200 ml 500 ml Results Result Diagram: 02/14/19 0712 02/14/19 0712 Medications Medications Current Medications Miscellaneous Information (* Miscellaneous Pharmacy Order) Treatment of Hypoglycemia: 1.BG 51... Per protocol XX ; Start 02/08/19 at 17:00 Dextrose (D50w Syringe) 25 ml Q15M PRN IV .DECREASED GLUCOSE; Start 02/08/19 at 17:00 Dextrose (D50w Syringe) 50 ml Q15M PRN IV .DECREASED GLUCOSE; Start 02/08/19 at 17:00 Hydromorphone HCl (Dilaudid) 0.2 mg Q15M PRN IV PAIN LEVEL 1-5 Last administered on 02/08/19at 22:40; Admin Dose 0.2 MG; Start 02/08/19 at 17:00 Hydromorphone HCl (Dilaudid) 0.4 mg Q15M PRN IV PAIN LEVEL 6-10 Last administered on 02/11/19at 21:55; Admin Dose 0.4 MG; Start 02/08/19 at 17:00 Ondansetron HCl (Zofran Inj) 4 mg Q6H PRN IV NAUSEA AND/OR VOMITING; Start 02/08/19 at 17:00 Acetaminophen (Tylenol Tab) 650 mg Q3H PRN PO ELEVATED TEMPERATURE Last administered on 02/14/19at 10:29; Admin Dose 650 MG; Start 02/08/19 at 17:00 Magnesium Sulfate/ Dextrose 100 ml @ 100 mls/hr PRN PRN IVPB PENDING LAB VALUE; Start 02/08/19 at 17:00 Enoxaparin Sodium (Lovenox) 40 mg DAILY SC Last administered on 02/14/19at 08:22; Admin Dose 40 MG; Start 02/09/19 at 09:00 Tramadol HCl (Ultram) 50 mg Q6H PRN PO MODERATE PAIN LEVEL 4-6 Last administered on 02/11/19at 19:12; Admin Dose 50 MG; Start 02/09/19 at 00:30 Metoprolol Tartrate (Lopressor) 25 mg BID PO Last administered on 02/14/19 08:17; Admin Dose 25 MG; Start 02/09/19 at 21:00 Atorvastatin Calcium (Lipitor) 40 mg HS PO Last administered on 02/13/19 20:30; Admin Dose 40 MG; Start 02/09/19 at 21:00 Diagnostic Test (Pha) (Accu-Chek) 1 ea 02 XX Last administered on 02/14/19at 02:55; Admin Dose 1 EA; Start 02/10/19 at 02:00 Insulin Aspart (Novolog Insulin Pen) NOVOLOG *MODERATE* ALGORITHM WITH MEALS BEDTIME SC Last administered on 02/14/19 08:10; Admin Dose 8 UNIT; Start 02/09/19 at 11:30 Miscellaneous Information 1 ea NOTE XX ; Start 02/09/19 at 11:00 Glucose (Glutose) 15 gm Q15M PRN PO DECREASED GLUCOSE; Start 02/09/19 at 11:00 Glucose (Glutose) 22.5 gm Q15M PRN PO DECREASED GLUCOSE; Start 02/09/19 at 11:00 Dextrose (D50w Syringe) 25 ml Q15M PRN IV DECREASED GLUCOSE; Start 02/09/19 at 11:00 Dextrose (D50w Syringe) 50 ml Q15M PRN IV DECREASED GLUCOSE; Start 02/09/19 at 11:00 Glucagon (Glucagen) 1 mg Q15M PRN IM DECREASED GLUCOSE; Start 02/09/19 at 11:00 Glucose (Glutose) 15 gm Q15M PRN BUCCAL DECREASED GLUCOSE; Start 02/09/19 at 11:00 Insulin Glargine (Lantus) 15 units DAILY@1999 SC Last administered on 02/13/19at 20:37; Admin Dose 15 UNITS; Start 02/10/19 at 20:00 Insulin Aspart (Novolog Insulin Pen) 6 unit WITH MEALS SC Last administered on 02/14/19 12:25; Admin Dose 6 UNIT; Start 02/10/19 at 11:30 Famotidine (Pepcid) 20 mg BID@08,20 PO Last administered on 02/14/19at 08:16; Admin Dose 20 MG; Start 02/10/19 at 20:00 Hydromorphone HCl (Dilaudid) 1 mg Q4H PRN IV SEVERE PAIN LEVEL 7-10 Last administered on 02/13/19at 13:09; Admin Dose 1 MG; Start 02/12/19 at 00:00 Metformin HCl (Glucophage) 1,000 mg BID WITH MEALS PO Last administered on 02/14/19at 08:15; Admin Dose 1,000 MG; Start 02/12/19 at 17:55 Lisinopril (Zestril) 10 mg DAILY PO Last administered on 02/14/19at 08:17; Admin Dose 10 MG; Start 02/13/19 at 09:00 Furosemide (Lasix) 20 mg DAILY PO ; Start 02/15/19 at 09:00 Magnesium Sulfate 3 gm/Sodium Chloride 106 ml @ 35.333 mls/ hr ONCE ONCE IVPB ; Start 02/14/19 at 12:30; Stop 02/14/19 at 15:29 Aspirin (Aspirin) 81 mg DAILY PO ; Start 02/15/19 at 09:00 VTE Prophylaxis Risk score (from Nsg)>0 risk: 5 SCD applied (from Nsg): No SCD contraindication: other Lines/Catheters IV Catheter Type: Jackson in Place: No Assessment/Plan Hospital Course This note is intended for 02/08/19, late entry Subjective No chest pain, Objective Physical exam General: Patient is laying in bed and answers questions appropriately Mentation: Patient is alert and oriented 4, Head: Normocephalic atraumatic Eyes: EOMI, pupils reactive to light Neck: Supple, nontender, midline Respiratory: Clear to auscultation bilaterally Cardiovascular: regular rate, no obvious murmurs Gastrointestinal: non-tender to palpation, bowel sounds heard. Neurological: Moves all extremities spontaneously Skin: No new skin lesions Assessment/Plan 1. CAD s/p [facility] on 02/03/2019 with 3 vessel disease - Cardiology on board and appreciate recommends. Continue current treatment - CT surgery on board and plans for CABG today 2. Diabetes mellitus - A1c noted - continue on Lantus - ISS and accuchecks 3. Hypertension - stable - will adjust medications as needed 4. HLD - continue statin 5. BPH - continue on flomax 6. Disposition - Remains stable with plans for CABG today VIKAS GALEANO Feb 14, 2019 13:11
[2019-02-14] MEDS ORDERED: METO-448 PO (15:54)
[2019-02-14] MEDS ORDERED: ATOR40TA68 PO (15:54)
[2019-02-14] MEDS ORDERED: LANT3I SC (15:54)
[2019-02-14] MEDS ORDERED: LISI10TA2 PO (15:54)
[2019-02-14] MEDS ORDERED: ASPI325T29 PO (15:54)
[2019-02-14] MEDS ORDERED: FURO40TA4 PO (15:54)
--- NOTE | 2019-02-14 16:01 | PDOCDIS ---
Discharge Instructions DIAGNOSIS Discharge Diagnosis 1. CAD s/p [facility] on 02/03/2019 with 3 vessel disease, s/p 3V CABG on 02/08/19 2. Diabetes mellitus, A1c 7.4 3. Hypertension 4. HLD 5. BPH CONDITION [id number] Patient Condition: [id number] Stable HOME CARE INSTRUCTIONS: [id number] Diet Instructions: [id number] Low Fat /Cholesterol FOLLOW UP/APPOINTMENTS Follow-up Plan 1. Follow up with your primary care physician in 1-2 weeks. If you do not have one, you can make an appointment with Dr. Bernardo Mackey for follow up 2. You will need to continue taking Metformin and glipizide. Your Lantus dose was increased to 15 units for better sugar control 3. Continue on Aspirin 81mg, Metoprolol 25 mg twice a day, Lipitor 40mg at night , Lisinopril 10mg daily and Lasix 20mg daily 4. Follow a heart healthy diet by staying away from foods high in carbohydrates, processed sugars, and high in fat 5. Please call CT surgeons office to schedule follow up in 1-2 weeks 6. Please call Draw Bench Operator office to schedule a follow up in 1-2 weeks as well 7. If experiencing any concerning symptoms. please go to your nearest emergency department REFERRALS Other Referrals Bernardo Mackey MD Specialty:Internal Medicine Office Address [address] [place] [address] Office Jd Santos DO Specialty: Cardiovascular Disease Office Address [facility] [address] [place] [address] Office Adele Dominguez MD Specialty: Cardiothoracic Surgery Office Address [address] [place] [address] Office AIDAN PERKINS MD Feb 14, 2019 16:01
[2019-02-14] MEDS ORDERED: INSULIN ASPART [NOVOLOG] 3 ML PEN SC SCH (17:55)
--- NOTE | 2019-02-14 18:24 | DS ---
Date/Time of Note Date/Time of Note DATE: 02/14/19 TIME: 18:18 Discharge Summary Admission/Discharge Info Admit Date/Time Feb 03, 2019 at 18:10 Discharge Date/Time 02/14/19 Discharge Diagnosis 1. CAD s/p C on 02/03/2019 with 3 vessel disease, s/p 3V CABG on 02/08/19 2. Diabetes mellitus, A1c 7.4 3. Hypertension 4. HLD 5. BPH Patient Condition: Stable Consults Cardiology- Dr. Santos CT surgery- Dr. Dominguez Procedures Three-vessel coronary artery disease left heart catheterization 02/02/2019 Date/Time of Note Date/Time of Note DATE: 02/08/19 TIME: 16:47 Operative Report Preoperative Diagnosis 3v CAD Postoperative Diagnosis same Operation/Procedure Performed CABGx3. liima to lad, svg to distal RCA, svg to distal OM Hx of Present Illness 63-year-old male who presented to the emergency room with chest pain with a past medical history of coronary artery disease and has been told in the past that he needs an angiogram while incarcerated. But this was never done. He does have discharge paperwork confirming ST elevation myocardial infarction with LAD. This onset of chest pain has been on and off for the last 5 days and was associated with exertion. He has been seen by the public space attendant who is planning him for coronary angiogram. Is being admitted based on this. Past medical history: Hypertension, diabetes type 2, dyslipidemia, coronary artery disease, urinary obstructive symptoms, depression Surgical history: Gallbladder surgery, throat surgery Allergy codeine Social history tobacco use, occasional alcohol drinker, denies illicit drug use, uses marijuana occasionally Hospital Course Patient was admitted for cardiac evaluation and found with 3 vessel disease during cardiac catheterization. CT surgery was consulted and patient was taken for CABG. Patient tolerated surgical intervention well and during course of hospitalization lines and chest tubes were removed. Patients insulin was adjusted for better glucose control and medication adjustments were made for BP optimization. Patient progressed well with physical therapy and was cleared by Cardiology and CT surgery for discharge. He was discharged home in good condition. Home Meds Active Scripts Furosemide* (Furosemide*) 40 Mg Tablet, 20 MG PO DAILY for 30 Days, #30 TAB 1 Refill Prov:AIDAN PERKINS MD 02/14/19 Aspirin (Aspirin Lite-Coat) 325 Mg Tablet, 81 MG PO DAILY for 30 Days, #30 TAB 1 Refill Prov:AIDAN PERKINS MD 02/14/19 Metoprolol Tartrate* (Lopressor*) 25 Mg Tab, 25 MG PO BID for 30 Days, #60 TAB 1 Refill Prov:AIDAN PERKINS MD 02/14/19 Insulin Glargine* (Lantus*) 100 Unit/Ml Soln, 15 UNIT SC QHS for 30 Days, #1 VIAL Prov:AIDAN PERKINS MD 02/14/19 Atorvastatin* (Atorvastatin*) 40 Mg Tablet, 40 MG PO QHS for 30 Days, #30 TAB 1 Refill Prov:AIDAN PERKINS MD 02/14/19 Lisinopril* (Lisinopril*) 10 Mg Tablet, 10 MG PO DAILY for 30 Days, #30 TAB 1 Refill Prov:AIDAN PERKINS MD 02/14/19 Reported Medications Tamsulosin Hcl* (Tamsulosin Hcl*) 0.4 Mg Cap.er.24h, 0.4 MG PO HS, CAP 02/02/19 Glipizide* (Glipizide*) 10 Mg Tablet, 10 MG PO DAILY, TAB 02/02/19 Metformin* (Glucophage*) 1,000 Mg Tablet, 1000 MG PO DAILY, #60 TAB 02/02/19 Discontinued Reported Medications Aspirin* (Aspirin*) 325 Mg Tablet, 325 MG PO DAILY, TAB 02/02/19 Duloxetine Hcl* (Duloxetine Hcl*) 60 Mg Capsule.dr, 60 MG PO DAILY, #30 CAP 02/02/19 Atorvastatin* (Atorvastatin*) 80 Mg Tablet, 80 MG PO QHS, #30 TAB 02/02/19 Lisinopril* (Lisinopril*) 40 Mg Tablet, 40 MG PO DAILY, #30 TAB 02/02/19 Carvedilol* (Carvedilol*) 6.25 Mg Tablet, 6.25 MG PO BID, #60 TAB 02/02/19 Follow-up Plan 1. Follow up with your primary care physician in 1-2 weeks. If you do not have one, you can make an appointment with Dr. Bernardo Mackey for follow up 2. You will need to continue taking Metformin and glipizide. Your Lantus dose was increased to 15 units for better sugar control 3. Continue on Aspirin 81mg, Metoprolol 25 mg twice a day, Lipitor 40mg at night , Lisinopril 10mg daily and Lasix 20mg daily 4. Follow a heart healthy diet by staying away from foods high in carbohydrates, processed sugars, and high in fat 5. Please call CT surgeons office to schedule follow up in 1-2 weeks 6. Please call Independent Contractor office to schedule a follow up in 1-2 weeks as well 7. If experiencing any concerning symptoms. please go to your nearest emergency department Primary Care Provider Care Physician No Primary Time spent on discharge: > 30 minutes Pending Labs Laboratory Tests Test 02/13/19 20:29 02/14/19 02:45 02/14/19 07:12 02/14/19 07:39 Bedside 225 182 238 Glucose mg/dL (70-220) mg/dL (70-220) mg/dL (70-220) White Blood 7.4 Count 10^3/ul (4.8-1 0.8) Red Blood 3.00 Count 10^6/ul (4.70- 6.10) Hemoglobin 9.0 g/dl (14.0-18. 0) Hematocrit 27.6 % (42.0-52.0) Mean 92.0 Corpuscular fl (82.0-101.0 Volume ) Mean 30.0 Corpuscular pg (29.0-33.0) Hemoglobin Mean 32.6 Corpuscular g/dl (32.0-37. Hemoglobin Conc 0) ent Red Cell 13.2 Distribution % (11.5-14.5) Width Platelet Count 269 10^3/UL (140-4 15) Mean Platelet 9.9 Volume fl (7.4-10.4) Immature 0.400 Granulocytes % % (0.001-0.429 ) Neutrophils % 61.5 % (39.0-77.0) Lymphocytes % 24.0 % (15.0-51.0) Monocytes % 10.0 % (0.0-11.0) Eosinophils % 3.7 % (0.0-7.0) Basophils % 0.4 % (0.0-2.0) Nucleated Red 0.0 Blood Cells % /100WBC (0.0-0 .0) Immature 0.030 Granulocytes # 10^3/ul (0.0-0 .031) Neutrophils # 4.5 10^3/ul (1.6-7 .5) Lymphocytes # 1.8 10^3/ul (0.8-2 .9) Monocytes # 0.7 10^3/ul (0.3-0 .9) Eosinophils # 0.3 10^3/ul (0.0-0 .5) Basophils # 0.0 10^3/ul (0.0-0 .1) Nucleated Red 0.0 Blood Cells # 10^3/ul (0.0-0 .0) Sodium Level 140 mmol/L (135-14 4) Potassium 4.5 Level mmol/L (3.5-5. 1) Chloride Level 102 mmol/L (97-110 ) Carbon Dioxide 31 Level mmol/L (21-31) Anion Gap 7 (5-13) Blood Urea 14 Nitrogen mg/dl (7-20) Creatinine 0.69 mg/dl (0.61-1. 24) Est Glomerular > 60 Filtrat mL/min (>60) Rate mL/min Glucose Level 235 mg/dl (70-220) Calcium Level 8.8 mg/dl (8.4-10. 2) Phosphorus 3.7 Level mg/dl (2.5-4.9 ) Magnesium 1.7 Level mg/dl (1.7-2.5 ) Test 02/14/19 12:20 02/14/19 17:23 Bedside 108 132 Glucose mg/dL (70-220) mg/dL (70-220) AIDAN PERKINS MD Feb 14, 2019 18:24
[2019-02-14] MEDS ORDERED: INSULIN GLARGINE [LANTus] (100 UNITS/ML) SYG SC SCH (20:00)
[2019-02-15] MEDS ORDERED: ASPIRIN 325 MG TAB PO SCH (09:00)
[2019-02-15] MEDS ORDERED: FUROSEMIDE 40 MG TAB PO SCH ×2 (09:00)
== END 2019-02-14 19:15 | disposition home health service (06) | DRG 234 ==
LOC: E/R 10:52 → CANRESERV 14:17 → CCL 16:07 → TEL 16:08 → SUATTDRO 17:41 → TEL 02-03 06:15 → OBSVTOIN 02-03 18:10 → ICU 02-08 12:35 → TEL 02-10 18:29
PROVIDERS: ADMIT Family Medicine; ATTEND Internal Medicine
PROC: 4A023N7 Measurement of Cardiac Sampling and Pressure, Left Heart, Percutaneous Approach (ICD-10-PCS; 2019-02-02)
PROC: B211YZZ Fluoroscopy of Multiple Coronary Arteries using Other Contrast (ICD-10-PCS; 2019-02-02)
PROC: 021109W Bypass Coronary Artery, Two Arteries from Aorta with Autologous Venous Tissue, Open Approach (ICD-10-PCS; 2019-02-08)
PROC: 06BP4ZZ Excision of Right Saphenous Vein, Percutaneous Endoscopic Approach (ICD-10-PCS; 2019-02-08)
PROC: 5A1221Z Performance of Cardiac Output, Continuous (ICD-10-PCS; 2019-02-08)
PROC: 5A1223Z Performance of Cardiac Pacing, Continuous (ICD-10-PCS; 2019-02-08)
PROC: 02100Z9 Bypass Coronary Artery, One Artery from Left Internal Mammary, Open Approach (ICD-10-PCS; principal; 2019-02-08 13:00)
DX: I25.110 Atherosclerotic heart disease of native coronary artery with unstable angina pectoris (principal); E11.9 Type 2 diabetes mellitus without complications; F32.9 Major depressive disorder, single episode, unspecified; I10 Essential (primary) hypertension; N40.0 Benign prostatic hyperplasia without lower urinary tract symptoms; Z87.891 Personal history of nicotine dependence; Z79.82 Long term (current) use of aspirin; Z79.4 Long term (current) use of insulin
CPT/HCPCS: 36415; 36592; 36600; 70490; 71045; 80048; 80053; 80061; 80069; 80307; 82803; 82962; 83036; 83735; 83880; 84100; 84443; 84484; 85014; 85025; 85378; 85610; 85730; 86850; 86900; 86901; 86920; 87081; 93005; 93306; 93312; 93320; 93325; 93458; 93880; 94002; 97116; 97162; 97530; 99217; G0378; C1887; J0171; J0360; J0690; J1170; J1644; J1650; J1815; J1885; J1940; J2001; J2250; J2260; J2270; J2370; J2440; J2720; J3010; J3370; J3475; J3480; J7030; J7070; P9047; Q9967

== ENCOUNTER 2019-02-23 14:25 | Inpatient (IN) | payer MEDICAID, OTHER ==
[~2019-02-23] VITALS: Ht 182.9 cm; Wt 110.0 kg
[~2019-02-23 14:25] MED LIST: ASPI325T29 PO; ATOR40TA68 PO; FURO40TA4 PO; GLIP10TA14 PO; LANT3I SC; LISI10TA2 PO; METO-448 PO; MTF1000T PO; TAMS0.4C2 PO
[2019-02-23] MEDS ORDERED: FUROSEMIDE 40 MG INJ IV STA (14:51)
[2019-02-23] MEDS ORDERED: NITROGLYCERIN 2% 1 GM OINT PKT TD STA (14:51)
[2019-02-23] MEDS ORDERED: NITROGLYCERIN (SL) 0.4 MG TAB SL PRN (15:00)
[2019-02-23] MEDS ORDERED: ASPIRIN 81 MG TAB PO ONE (15:00)
[2019-02-23] MEDS ORDERED: ASPI-817 PO (15:49)
--- NOTE | 2019-02-23 16:51 | CONS ---
Assessment/Plan Cardiology NYHA: II Heart Failure Type: Acute Heart Failure Type: Diastolic Assessment/Plan Hospital Course (Demo Recall) Acute decompensated diastolic congestive heart failure CAD with history of CABG Hypertension, uncontrolled Diabetes Dyslipidemia -Patient with evidence of volume overload on examination. -ECG with no significant seeming abnormalities, initial cardiac enzymes are negative -Patient with improvement in symptoms with IV diuretics -We will continue IV diuretics, check echocardiogram to rule out pericardial effusion -Continue aspirin and statin therapy, beta-frankie, SAJI inhibitor as renal function blood pressure permits -Serial cardiac enzymes -Diabetes management Consultation Date/Type/Reason Admit Date/Time Type of Consult Cardiology Reason for Consultation Shortness of breath Date/Time of Note DATE: 02/23/19 TIME: 16:46 Hx of Present Illness This is a 63-year-old male with past medical history of coronary artery disease status post recent CABG earlier last month, hypertension, diabetes who presents with progressive worsening shortness of breath. Symptoms are with exertion and improved at rest. Patient also with increased lower examinee edema. Patient also with cough with walking. His chest wall discomfort is slightly improved. He denies any exertional chest discomfort. He denies any fevers or chills. He did receive IV Lasix in the emergency room and has been urinating and is feeling better. He tells me he is compliant with his medications. 12 point review of systems was performed with all pertinent positives and negatives mentioned above and all else is negative Past Medical History Medical History: coronary artery disease, diabetes, hypertension Home Meds Active Scripts Furosemide* (Furosemide*) 40 Mg Tablet, 20 MG PO DAILY for 30 Days, #30 TAB 1 Refill Prov:AIDAN PERKINS MD 02/14/19 Metoprolol Tartrate* (Lopressor*) 25 Mg Tab, 25 MG PO BID for 30 Days, #60 TAB 1 Refill Prov:AIDAN PERKINS MD 02/14/19 Insulin Glargine* (Lantus*) 100 Unit/Ml Soln, 15 UNIT SC QHS for 30 Days, #1 VIAL Prov:AIDAN PERKINS MD 02/14/19 Atorvastatin* (Atorvastatin*) 40 Mg Tablet, 40 MG PO QHS for 30 Days, #30 TAB 1 Refill Prov:AIDAN PERKINS MD 02/14/19 Lisinopril* (Lisinopril*) 10 Mg Tablet, 10 MG PO DAILY for 30 Days, #30 TAB 1 Refill Prov:AIDAN PREKINS MD 02/14/19 Reported Medications Aspirin* (Aspirin* EC) 81 Mg Tablet.dr, 81 MG PO DAILY, TAB 02/23/19 Tamsulosin Hcl* (Tamsulosin Hcl*) 0.4 Mg Cap.er.24h, 0.4 MG PO HS, CAP 02/02/19 Glipizide* (Glipizide*) 10 Mg Tablet, 10 MG PO DAILY, TAB 02/02/19 Metformin* (Glucophage*) 1,000 Mg Tablet, 1000 MG PO DAILY, #60 TAB 02/02/19 Discontinued Scripts Aspirin (Aspirin Lite-Coat) 325 Mg Tablet, 81 MG PO DAILY for 30 Days, #30 TAB 1 Refill Prov:AIDAN PERKINS MD 02/14/19 Medications Current Medications Nitroglycerin (Nitroglycerin (Sl Tab) 0.4 Mg) 1 tab Q5M UP TO 3 DOSES PRN SL .CHEST PAIN; Start 02/23/19 at 15:00 Allergies: Coded Allergies: codeine (Unverified Allergy, Intermediate, 02/23/19) Past Surgical History Past Surgical Hx: coronary bypass surgery, other Family History Significant Family History: no pertinent family hx Social History Alcohol Use: none Smoking Status: Never smoker Exam/Review of Systems Vital Signs Vitals Vital Signs Date Temp Pulse Resp B/P (MAP) Pulse Ox O2 O2 Flow FiO2 Time Delivery Rate 02/23/19 Nasal 2 15:17 Cannula 02/23/19 98.0 90 18 172/82 99 14:29 (112) Exam Constitutional: alert, oriented (No apparent distress) Head: normocephalic Respiratory: other (Coarse breath sounds bilaterally, no wheezing) Cardiovascular: regular rate and rhythm (S1-S2 heard) Gastrointestinal: soft, non-tender, bowel sounds Extremities: edema Labs Result Diagram: 02/23/19 1505 02/23/19 1505 Results 24hrs Laboratory Tests Test 02/23/19 15:05 White Blood Count 9.2 # Red Blood Count 3.46 L Hemoglobin 10.2 L Hematocrit 31.0 L Mean Corpuscular Volume 89.6 Mean Corpuscular Hemoglobin 29.5 Mean Corpuscular Hemoglobin Concent 32.9 Red Cell Distribution Width 13.7 Platelet Count 449 #H Mean Platelet Volume 9.2 Immature Granulocytes % 0.400 Neutrophils % 65.5 Lymphocytes % 23.2 Monocytes % 6.9 Eosinophils % 3.5 Basophils % 0.5 Nucleated Red Blood Cells % 0.0 Immature Granulocytes # 0.040 H Neutrophils # 6.0 Lymphocytes # 2.1 Monocytes # 0.6 Eosinophils # 0.3 Basophils # 0.1 Nucleated Red Blood Cells # 0.0 Sodium Level 142 Potassium Level 4.1 Chloride Level 108 Carbon Dioxide Level 24 Anion Gap 10 Blood Urea Nitrogen 26 H Creatinine 0.76 Est Glomerular Filtrat Rate mL/min > 60 Glucose Level 220 Calcium Level 9.1 Troponin I < 0.012 Imaging Imaging Sinus rhythm at 81 bpm, right bundle branch block, left anterior fascicular blo ck, nonspecific ST abnormalities Medications Medications Current Medications Nitroglycerin (Nitroglycerin (Sl Tab) 0.4 Mg) 1 tab Q5M UP TO 3 DOSES PRN SL .CHEST PAIN; Start 02/23/19 at 15:00 Jd Santos DO February 23, 2019 16:51
[2019-02-23] MEDS ORDERED: ACETAMINOPHEN 325 MG TAB PO PRN ×2 (17:00→19:30)
[2019-02-23] MEDS ORDERED: ONDANSETRON 4 MG INJ IV PRN ×2 (17:00→19:30)
--- NOTE | 2019-02-23 18:44 | ERD ---
ER Documentation Chief Complaint Chief Complaint cp,sob x 1 week HPI Patient is a 63-year-old male with coronary disease, CHF, hypertension, diabetes, and recent CABG who presents with shortness of breath. He said that he cannot walk "faster than a crawl" without becoming short of breath. He has bilateral leg swelling. He has decreased sensation in the feet. He had a CABG done on February 08. ROS All systems reviewed and are negative except as per history of present illness. Medications Home Meds Active Scripts Furosemide* (Furosemide*) 40 Mg Tablet, 20 MG PO DAILY for 30 Days, #30 TAB 1 Refill Prov:AIDAN PERKINS MD 02/14/19 Metoprolol Tartrate* (Lopressor*) 25 Mg Tab, 25 MG PO BID for 30 Days, #60 TAB 1 Refill Prov:AIDAN PERKINS MD 02/14/19 Insulin Glargine* (Lantus*) 100 Unit/Ml Soln, 15 UNIT SC QHS for 30 Days, #1 VIAL Prov:AIDAN PERKINS MD 02/14/19 Atorvastatin* (Atorvastatin*) 40 Mg Tablet, 40 MG PO QHS for 30 Days, #30 TAB 1 Refill Prov:AIDAN PERKINS MD 02/14/19 Lisinopril* (Lisinopril*) 10 Mg Tablet, 10 MG PO DAILY for 30 Days, #30 TAB 1 Refill Prov:AIDAN PERKINS MD 02/14/19 Reported Medications Aspirin* (Aspirin* EC) 81 Mg Tablet.dr, 81 MG PO DAILY, TAB 02/23/19 Tamsulosin Hcl* (Tamsulosin Hcl*) 0.4 Mg Cap.er.24h, 0.4 MG PO HS, CAP 02/02/19 Glipizide* (Glipizide*) 10 Mg Tablet, 10 MG PO DAILY, TAB 02/02/19 Metformin* (Glucophage*) 1,000 Mg Tablet, 1000 MG PO DAILY, #60 TAB 02/02/19 Discontinued Scripts Aspirin (Aspirin Lite-Coat) 325 Mg Tablet, 81 MG PO DAILY for 30 Days, #30 TAB 1 Refill Prov:AIDAN PERKINS MD 02/14/19 Allergies Allergies: Coded Allergies: codeine (Unverified Allergy, Intermediate, 02/23/19) PMhx/Soc History of Surgery: Yes (THROAT CA REMOVAL, GB REMOVAL,OPEN HEART SX) Anesthesia Reaction: No Hx Neurological Disorder: No Hx Respiratory Disorders: No Hx Cardiac Disorders: Yes (HTN) Hx Psychiatric Problems: No Hx Miscellaneous Medical Probl: Yes (MILD OBESITY ) Hx Substance Use: No Hx Tobacco Use: No Smoking Status: Never smoker FmHx Family History: coronary disease Physical Exam Vitals Vital Signs Date Temp Pulse Resp B/P (MAP) Pulse Ox O2 O2 Flow FiO2 Time Delivery Rate 02/23/19 85 18 132/77 100 Nasal 17:18 (95) Cannula 02/23/19 Nasal 2 15:17 Cannula 02/23/19 98.0 90 18 172/82 99 14:29 (112) Physical Exam Const: No acute distress Head: Atraumatic Eyes: Normal Conjunctiva ENT: Normal External Ears, Nose and Mouth. Neck: Full range of motion. No meningismus. Resp: Clear to auscultation bilaterally Cardio: Regular rate and rhythm, no murmurs Abd: Soft, non tender, non distended. Normal bowel sounds Skin: No petechiae or rashes Back: No midline or flank tenderness Ext: Bilateral lower extremity swelling Neur: Awake and alert Psych: Normal Mood and Affect Result Diagram: 02/23/19 1505 02/23/19 1505 Results 24 hrs Laboratory Tests Test 02/23/19 15:04 02/23/19 15:05 B-Type Natriuretic Peptide 670 PG/ML White Blood Count 9.2 10^3/ul Red Blood Count 3.46 10^6/ul Hemoglobin 10.2 g/dl Hematocrit 31.0 % Mean Corpuscular Volume 89.6 fl Mean Corpuscular Hemoglobin 29.5 pg Mean Corpuscular Hemoglobin Concent 32.9 g/dl Red Cell Distribution Width 13.7 % Platelet Count 449 10^3/UL Mean Platelet Volume 9.2 fl Immature Granulocytes % 0.400 % Neutrophils % 65.5 % Lymphocytes % 23.2 % Monocytes % 6.9 % Eosinophils % 3.5 % Basophils % 0.5 % Nucleated Red Blood Cells % 0.0 /100WBC Immature Granulocytes # 0.040 10^3/ul Neutrophils # 6.0 10^3/ul Lymphocytes # 2.1 10^3/ul Monocytes # 0.6 10^3/ul Eosinophils # 0.3 10^3/ul Basophils # 0.1 10^3/ul Nucleated Red Blood Cells # 0.0 10^3/ul Sodium Level 142 mmol/L Potassium Level 4.1 mmol/L Chloride Level 108 mmol/L Carbon Dioxide Level 24 mmol/L Anion Gap 10 Blood Urea Nitrogen 26 mg/dl Creatinine 0.76 mg/dl Est Glomerular Filtrat Rate mL/min > 60 mL/min Glucose Level 220 mg/dl Calcium Level 9.1 mg/dl Troponin I < 0.012 ng/ml Current Medications Medications Dose Sig/Violet Start Time Status Last (Trade) Ordered Route PRN Stop Time Admin Dose Reason Admin 1 inch ONCE STAT 02/23/19 DC 02/23/19 Nitroglycerin TD 14:51 02/23/19 15:08 14:52 (Nitroglyceri n 2% Oint) 1 tab Q5M UP TO 3 02/23/19 Nitroglycerin DOSES PRN 15:00 SL .CHEST (Nitroglyceri PAIN n (Sl Tab) 0.4 Mg) Furosemide 40 mg ONCE STAT 02/23/19 DC 02/23/19 (Lasix) IV 14:51 02/23/19 15:09 14:52 Aspirin 162 mg ONCE ONCE 02/23/19 DC 02/23/19 (Aspirin) PO 15:00 02/23/19 15:08 15:01 Aspirin 81 mg DAILY PO 02/24/19 (Aspirin) 09:00 40 mg HS PO 02/23/19 Atorvastatin 21:00 Calcium (Lipitor) Carvedilol 6.25 mg BID PO 02/23/19 (Coreg) 21:00 Furosemide 40 mg DAILY IV 02/24/19 (Lasix) 09:00 Ondansetron 4 mg ER BRIDGE 02/23/19 HCl (Zofran PRN IV 17:00 02/24/19 Inj) NAUSEA/VOMITI 16:59 NG 650 mg ER BRIDGE 02/23/19 Acetaminophen PRN PO 17:00 02/24/19 (Tylenol .MILD PAIN 16:59 Tab) 1-3 OR TEMP Lisinopril 10 mg DAILY PO 02/24/19 (Zestril) 09:00 Procedures/MDM Chest x-ray read by radiology is negative. EKG read by me: Rate/Rhythm: Regular rate and rhythm at a normal rate Intervals: Normal Impression: No ST elevations Patient is a 63-year-old male with multiple cardiac risk factors who presents with shortness of breath with minimal exertion. I am concerned for acute congestive heart failure. The patient will be admitted to the panel team. Dr. Santos from cardiology has already seen the patient and sent the patient to the ER for admission. The patient was given aspirin, nitroglycerin, and Lasix. The patient will be admitted to a telemetry inpatient bed. I doubt pneumonia, pneumothorax, pulmonary embolism, or aortic dissection. Departure Diagnosis: Primary Impression: CHF (congestive heart failure) Heart failure type: unspecified Heart failure chronicity: acute Qualified Codes: I50.9 - Heart failure, unspecified Additional Impression: Chest pain Chest pain type: unspecified Qualified Codes: R07.9 - Chest pain, unspecified Condition: MARCO Andrews MD February 23, 2019 18:44
--- NOTE | 2019-02-23 19:14 | HP ---
Date/Time of Note Date/Time of Note DATE: 02/23/19 TIME: 19:10 Assessment/Plan VTE Prophylaxis SCD applied (from Nsg): Yes Pharmacological prophylaxis: NA/contraindicated Pharm contraindication: low risk/ambulating Lines/Catheters IV Catheter Type (from Nrsg): Saline Lock Assessment/Plan Hospital Course 1. Acute respiratory distress secondary to decompensated diastolic heart failure Exam is consistent with volume overload, patient has improved since receiving Lasix in the ER Patient is compliant with home Lasix and low-salt diet IV diuretics Follow-up on echo Cardiology consultation appreciated 2. Coronary disease status post recent CABG Continue cardiac meds 3. Diabetes Continue home regimen, sliding scale 4. Hypertension Continue home meds Prophylaxis: SCDs Result Diagram: 02/23/19 1505 02/23/19 1505 Results 24hrs Laboratory Tests Test 02/23/19 15:04 02/23/19 15:05 B-Type Natriuretic Peptide 670 H White Blood Count 9.2 # Red Blood Count 3.46 L Hemoglobin 10.2 L Hematocrit 31.0 L Mean Corpuscular Volume 89.6 Mean Corpuscular Hemoglobin 29.5 Mean Corpuscular Hemoglobin Concent 32.9 Red Cell Distribution Width 13.7 Platelet Count 449 #H Mean Platelet Volume 9.2 Immature Granulocytes % 0.400 Neutrophils % 65.5 Lymphocytes % 23.2 Monocytes % 6.9 Eosinophils % 3.5 Basophils % 0.5 Nucleated Red Blood Cells % 0.0 Immature Granulocytes # 0.040 H Neutrophils # 6.0 Lymphocytes # 2.1 Monocytes # 0.6 Eosinophils # 0.3 Basophils # 0.1 Nucleated Red Blood Cells # 0.0 Sodium Level 142 Potassium Level 4.1 Chloride Level 108 Carbon Dioxide Level 24 Anion Gap 10 Blood Urea Nitrogen 26 H Creatinine 0.76 Est Glomerular Filtrat Rate mL/min > 60 Glucose Level 220 Calcium Level 9.1 Troponin I < 0.012 HPI/ROS Admit Date/Time Admit Date/Time February 23, 2019 Hx of Present Illness Patient is a 63-year-old male with history of coronary disease status post recent CABG, hypertension, diabetes, dyslipidemia, diastolic CHF. Patient presents with shortness of breath and lower extremity swelling which has become progressively worse over the past several days. In the ER BNP was elevated, chest x-ray was negative patient was started on supplemental oxygen. Patient has no other complaints at this time, patient denies chest pain. ROS Constitutional: no complaints, improved Eyes: no complaints ENT: no complaints Respiratory: shortness of breath Cardiovascular: no complaints Gastrointestinal: no complaints Genitourinary: no complaints Musculoskeletal: no complaints Skin: no complaints Neurologic: no complaints Endocrine: no complaints Lymphatic: lymphadema Psychological: no complaints, nl mood/affect Immunologic: no complaints PMH/Family/Social Past Medical History Coronary disease status post CABG, hypertension, diabetes, dyslipidemia, diastolic heart failure Medications Current Medications Nitroglycerin (Nitroglycerin (Sl Tab) 0.4 Mg) 1 tab Q5M UP TO 3 DOSES PRN SL .CHEST PAIN; Start 02/23/19 at 15:00 Aspirin (Aspirin) 81 mg DAILY PO ; Start 02/24/19 at 09:00 Atorvastatin Calcium (Lipitor) 40 mg HS PO ; Start 02/23/19 at 21:00 Carvedilol (Coreg) 6.25 mg BID PO ; Start 02/23/19 at 21:00 Furosemide (Lasix) 40 mg DAILY IV ; Start 02/24/19 at 09:00 Ondansetron HCl (Zofran Inj) 4 mg ER BRIDGE PRN IV NAUSEA/VOMITING; Start 02/23/19 at 17:00; Stop 02/24/19 at 16:59 Acetaminophen (Tylenol Tab) 650 mg ER BRIDGE PRN PO .MILD PAIN 1-3 OR TEMP; Start 02/23/19 at 17:00; Stop 02/24/19 at 16:59 Lisinopril (Zestril) 10 mg DAILY PO ; Start 02/24/19 at 09:00 Coded Allergies: codeine (Unverified Allergy, Intermediate, 02/23/19) Past Surgical History Past Surgical Hx: coronary bypass surgery, other Family History Significant Family History: no pertinent family hx Social History Alcohol Use: none Smoking Status: Never smoker Drug Use: none Exam/Review of Systems Vital Signs Vitals Vital Signs Date Temp Pulse Resp B/P (MAP) Pulse Ox O2 O2 Flow FiO2 Time Delivery Rate 02/23/19 85 18 132/77 100 Nasal 17:18 (95) Cannula 02/23/19 2 15:17 02/23/19 98.0 14:29 Exam Constitutional: alert, oriented Respiratory: clear to auscultation Cardiovascular: regular rate and rhythm Gastrointestinal: soft; No distended Extremities: edema TRISTA SCHMIDT February 23, 2019 19:14
[2019-02-23] MEDS ORDERED: GLUCOSE GEL 15 GRAM TUBE PO PRN ×2 (19:30)
[2019-02-23] MEDS ORDERED: DOCUSATE SODIUM 100 MG CAP PO PRN (19:30)
[2019-02-23] MEDS ORDERED: GLUCAGON 1 MG INJ IM PRN (19:30)
[2019-02-23] MEDS ORDERED: ZOLPIDEM 5 MG TAB PO PRN (19:30)
[2019-02-23] MEDS ORDERED: morphine 2 MG INJ IV PRN (19:30)
[2019-02-23] MEDS ORDERED: NACL 0.9% 3 ML SYG IV SCH (19:30)
[2019-02-23] MEDS ORDERED: GLUCOSE GEL 15 GRAM TUBE BUCCAL PRN (19:30)
[2019-02-23] MEDS ORDERED: HYDROCODONE/APAP (5/325) TAB PO PRN (19:30)
[2019-02-23] MEDS ORDERED: DEXTROSE 50% 50 ML SYRINGE IV PRN ×2 (19:30)
[2019-02-23] MEDS: INSULIN ASPART [NOVOLOG] 3 ML PEN SC SCH (21:00)
[2019-02-23] MEDS ORDERED: INSULIN GLARGINE [LANTus] (100 UNITS/ML) SYG SC SCH (21:00)
[2019-02-23] MEDS ORDERED: TAMSULOSIN (SR) 0.4 MG CAP PO SCH (21:00)
[2019-02-23] MEDS ORDERED: ATORVASTATIN 40 MG TAB PO SCH (21:00)
[2019-02-24] MEDS ORDERED: ACCU-CHEK XX SCH (02:00)
[2019-02-24 03:00] VITALS: Ht 182.9 cm; Wt 110.0 kg
[2019-02-24 03:56] VITALS: BP 161/87; PULSE 71; RESP 20
[2019-02-24 04:00] VITALS: PULSE 76
[2019-02-24 07:40] VITALS: BP 161/86; PULSE 68; RESP 19
[2019-02-24 08:00] VITALS: PULSE 74
[2019-02-24] MEDS ORDERED: FUROSEMIDE 40 MG INJ IV SCH (09:00)
[2019-02-24] MEDS ORDERED: LISINOPRIL 10 MG TAB PO SCH (09:00)
[2019-02-24] MEDS ORDERED: ASPIRIN 81 MG TAB PO SCH (09:00)
[2019-02-24] MEDS: INSULIN ASPART [NOVOLOG] 3 ML PEN SC SCH ×4 (09:26→12:16)
--- NOTE | 2019-02-24 11:27 | RADRPT ---
Echocardiogram Report Patient Name: RANJANA NIETOPatient ID: [id number] : 1955 (63y 8m)Study Date: 02/24/2019 7:06:13 AM Gender: MAccession #: [id number] Tech: Floyd Sheehan [facility] Location: [facility] Ref.Physician: JD LOZADA Height(Cm): BSA: Weight(Kg): Quality: AdequateAccount #: Procedures: Echocardiographic Report: Transthoracic echocardiogram with complete 2D, M-Mode, and doppler examination. Indications: Congestive Heart Failure, CABG, r/o effusion. Measurements: 2D/M Mode Doppler Measurement Value Normal Range Measurement Value Normal Range LVIDd 2D 5.1 [ 4.2 - 5.8 ] cm AV Peak Spike 1.5 [ 100.0 - 170.0 ] cm/sec LVIDs 2D 3.2 [ 2.5 - 4.0 ] cm AV Peak PG 9.0 [ 2.0 - 9.0 ] mmHg LVPWd 2D 1.2 [ 0.6 - 1.0 ] cm LVOT Peak Spike 1.2 [ 70.0 - 110.0 ] cm/sec IVSd 2D 1.2 [ 0.6 - 1.0 ] cm LVOT Peak PG 6.0 [ 2.0 - 6.0 ] mmHg AoR Diam 2D 3.2 [ 2.6 - 3.4 ] cm MV E Peak Spike 1.0 [ 60.0 - 130.0 ] cm/sec LA Dimen 2D 3.6 [ 3.0 - 4.0 ] cm MV A Peak Spike 0.8 [ 100.0 - 120.0 ] cm/sec MV E/A 1.2 [ 0.8 - 1.5 ] ratio MV Decel Time 282 [ 104 - 258 ] msec Lat E` Spike 0.1 [ 10.0 - 15.0 ] cm/sec Lateral E/E` 13.8 [ 1.0 - 2.0 ] ratio MV E/A 1.2 [ 0.8 - 1.5 ] ratio TR Peak Spike 1.7 [ 100.0 - 280.0 ] cm/sec TR Peak PG 12.0 mmHg RVSP 15.0 [ 10.0 - 36.0 ] mmHg RA Pressure 3.0 mmHg Findings: Left Ventricle: Normal left ventricular systolic function. Normal left ventricular cavity size. Normal left ventricular wall thickness. Ejection fraction is visually estimated at 60 %. Abnormal Diastolic Function. Right Ventricle: Normal right ventricular size. Normal right ventricular systolic function. Left Atrium: The left atrium is normal in size. Right Atrium: The right atrium is normal in size. Mitral Valve: Normal appearance and function of the mitral valve with trace physiologic regurgitation. Aortic Valve: No significant aortic stenosis or insufficiency. Aortic cusps appear mildly calcified. Tricuspid Valve: Normal appearance of the tricuspid valve. Estimated peak PA systolic pressure 15 mmHg. There is trace tricuspid regurgitation. Pulmonic Valve: Normal pulmonic valve appearance. Pericardium: Trivial pericardial effusion. Aorta: Normal aortic root. IVC: Normal size and normal respiratory collapse consistent with normal right atrial pressure. Conclusions: Normal left ventricular systolic function. Normal left ventricular cavity size. Normal left ventricular wall thickness. Ejection fraction is visually estimated at 60 %. Abnormal Diastolic Function. Normal right ventricular size. Normal right ventricular systolic function. The left atrium is normal in size. The right atrium is normal in size. No significant valvular stenosis or regurgitation seen. Trivial pericardial effusion. Electronically Signed By: dJ Lozada 2019-02-24 11:27:05 PDT
[2019-02-24 11:31] VITALS: BP 132/72; PULSE 70; RESP 18
[2019-02-24] MEDS ORDERED: MAGNESIUM SULFATE 2 GM/50 ML 50 ML IVPB STA (11:42)
--- NOTE | 2019-02-24 11:46 | CONS ---
Assessment/Plan Cardiology NYHA: II Heart Failure Type: Acute Heart Failure Type: Diastolic Assessment/Plan Hospital Course (Demo Recall) Acute decompensated diastolic congestive heart failure CAD with history of CABG Hypertension, uncontrolled Diabetes Dyslipidemia -Examination improved with clear lung casey and less lower extremity edema -We will order extra dose of Lasix IV this afternoon -Echocardiogram with normal left ventricular ejection fraction and trivial pericardial effusion -Okay to DC from a cardiac standpoint, with sent home on Lasix 40 mg p.o. twice daily starting from tomorrow for 2 to 3 days and decrease to daily after that. -Have changed Lopressor to carvedilol given better blood pressure control -Continue aspirin, statin, continue SAJI inhibitor as renal function and blood pressure permits -DC planning Consultation Date/Type/Reason Admit Date/Time February 23, 2019 at 16:47 Initial Consult Date Type of Consult Cardiology Date/Time of Note DATE: 02/24/19 TIME: 11:44 24 HR Interval Summary Free Text/Dictation Shortness of breath is much better as well as lower extremity edema. Denies chest pain, palpitations Exam/Review of Systems Vital Signs Vitals Vital Signs Date Temp Pulse Resp B/P (MAP) Pulse Ox O2 O2 Flow FiO2 Time Delivery Rate 02/24/19 98.4 70 18 132/72 94 11:31 (92) 02/24/19 Room Air 03:56 02/24/19 2.0 01:53 Intake and Output 02/23/19 02/23/19 02/24/19 1515:00 23:00 07:00 OutputOutput Total 1100 ml BalanceBalance -1100 ml Exam Constitutional: alert, oriented (No apparent distress) Head: normocephalic Respiratory: other (Coarse breath sounds bilaterally, no wheezing) Cardiovascular: regular rate and rhythm (S1-S2 heard) Gastrointestinal: soft, non-tender, bowel sounds Extremities: edema Labs Result Diagram: 02/24/19 0629 02/24/19 0629 Results 24hrs Laboratory Tests Test 02/23/19 15:04 02/23/19 15:05 02/23/19 20:48 02/23/19 21:44 B-Type Natriuretic 670 H Peptide White Blood Count 9.2 # Red Blood Count 3.46 L Hemoglobin 10.2 L Hematocrit 31.0 L Mean Corpuscular Volume 89.6 Mean Corpuscular 29.5 Hemoglobin Mean Corpuscular 32.9 Hemoglobin Concent Red Cell Distribution 13.7 Width Platelet Count 449 #H Mean Platelet Volume 9.2 Immature Granulocytes % 0.400 Neutrophils % 65.5 Lymphocytes % 23.2 Monocytes % 6.9 Eosinophils % 3.5 Basophils % 0.5 Nucleated Red Blood 0.0 Cells % Immature Granulocytes # 0.040 H Neutrophils # 6.0 Lymphocytes # 2.1 Monocytes # 0.6 Eosinophils # 0.3 Basophils # 0.1 Nucleated Red Blood 0.0 Cells # Sodium Level 142 Potassium Level 4.1 Chloride Level 108 Carbon Dioxide Level 24 Anion Gap 10 Blood Urea Nitrogen 26 H Creatinine 0.76 Est Glomerular Filtrat > 60 Rate mL/min Glucose Level 220 Calcium Level 9.1 Troponin I < 0.012 < 0.012 Creatine Kinase 92 Creatine Kinase Index 1.1 Creatinine Kinase MB 0.99 (Mass) Bedside Glucose 164 Test 02/24/19 03:20 02/24/19 06:29 02/24/19 08:01 02/24/19 09:24 Bedside Glucose 233 H 195 271 H White Blood Count 8.1 Red Blood Count 3.37 L Hemoglobin 9.9 L Hematocrit 30.4 L Mean Corpuscular Volume 90.2 Mean Corpuscular 29.4 Hemoglobin Mean Corpuscular 32.6 Hemoglobin Concent Red Cell Distribution 13.8 Width Platelet Count 413 Mean Platelet Volume 9.3 Immature Granulocytes % 0.500 H Neutrophils % 56.9 Lymphocytes % 29.6 Monocytes % 8.9 Eosinophils % 3.7 Basophils % 0.4 Nucleated Red Blood 0.0 Cells % Immature Granulocytes # 0.040 H Neutrophils # 4.6 Lymphocytes # 2.4 Monocytes # 0.7 Eosinophils # 0.3 Basophils # 0.0 Nucleated Red Blood 0.0 Cells # Sodium Level 144 Potassium Level 4.5 Chloride Level 109 Carbon Dioxide Level 30 Anion Gap 5 Blood Urea Nitrogen 22 H Creatinine 0.75 Est Glomerular Filtrat > 60 Rate mL/min Glucose Level 190 Calcium Level 9.0 Phosphorus Level 4.1 Magnesium Level 1.9 Medications Medications Current Medications Nitroglycerin (Nitroglycerin (Sl Tab) 0.4 Mg) 1 tab Q5M UP TO 3 DOSES PRN SL .CHEST PAIN; Start 02/23/19 at 15:00 Aspirin (Aspirin) 81 mg DAILY PO Last administered on 02/24/19at 08:16; Admin Dose 81 MG; Start 02/24/19 at 09:00 Atorvastatin Calcium (Lipitor) 40 mg HS PO Last administered on 02/23/19 21:55; Admin Dose 40 MG; Start 02/23/19 at 21:00 Carvedilol (Coreg) 6.25 mg BID PO Last administered on 02/24/19 08:15; Admin Dose 6.25 MG; Start 02/23/19 at 21:00 Furosemide (Lasix) 40 mg DAILY IV Last administered on 02/24/19 08:16; Admin Dose 40 MG; Start 02/24/19 at 09:00 Lisinopril (Zestril) 10 mg DAILY PO Last administered on 02/24/19 08:16; Admin Dose 10 MG; Start 02/24/19 at 09:00 IV Flush (NS 3 ml) 3 ml PER PROTOCOL IV ; Start 02/23/19 at 19:30 Ondansetron HCl (Zofran Inj) 4 mg Q6H PRN IV NAUSEA/VOMITING; Start 02/23/19 at 19:30 Acetaminophen (Tylenol Tab) 650 mg Q6H PRN PO .PAIN 1-3 OR TEMP Last administered on 02/24/19 08:16; Admin Dose 650 MG; Start 02/23/19 at 19:30 Acetaminophen/ Hydrocodone Bitart ([place] (5/325)) 1 tab Q6H PRN PO .MOD PAIN 4- 6; Start 02/23/19 at 19:30 Morphine Sulfate (morphine) 2 mg Q4H PRN IV .SEVERE PAIN 7-10; Start 02/23/19 at 19:30 Docusate Sodium (Colace) 100 mg Q12H PRN PO .CONSTIPATION; Start 02/23/19 at 19:30 Zolpidem Tartrate (Ambien) 5 mg QHS PRN PO .INSOMNIA; Start 02/23/19 at 19:30 Insulin Glargine (Lantus) 15 units QHS SC Last administered on 02/23/19 21:55; Admin Dose 15 UNITS; Start 02/23/19 at 21:00 Tamsulosin HCl (Flomax) 0.4 mg HS PO Last administered on 02/23/19 21:58; Admin Dose 0.4 MG; Start 02/23/19 at 21:00 Diagnostic Test (Pha) (Accu-Chek) 1 ea 02 XX ; Start 02/24/19 at 02:00 Insulin Aspart (Novolog Insulin Pen) 5 unit WITH MEALS SC Last administered on 02/24/19at 09:26; Admin Dose 5 UNIT; Start 02/24/19 at 08:00 Insulin Aspart (Novolog Insulin Pen) NOVOLOG *MILD* ALGORITHM WITH MEALS BEDTIME SC Last administered on 02/24/19at 09:26; Admin Dose 4 UNIT; Start 02/23/19 at 21:00 Miscellaneous Information 1 ea NOTE XX ; Start 02/23/19 at 19:30 Glucose (Glutose) 15 gm Q15M PRN PO DECREASED GLUCOSE; Start 02/23/19 at 19:30 Glucose (Glutose) 22.5 gm Q15M PRN PO DECREASED GLUCOSE; Start 02/23/19 at 19:30 Dextrose (D50w Syringe) 25 ml Q15M PRN IV DECREASED GLUCOSE; Start 02/23/19 at 19:30 Dextrose (D50w Syringe) 50 ml Q15M PRN IV DECREASED GLUCOSE; Start 02/23/19 at 19:30 Glucagon (Glucagen) 1 mg Q15M PRN IM DECREASED GLUCOSE; Start 02/23/19 at 19:30 Glucose (Glutose) 15 gm Q15M PRN BUCCAL DECREASED GLUCOSE; Start 02/23/19 at 19:30 Jd Santos DO February 24, 2019 11:46
[2019-02-24 12:00] VITALS: PULSE 70
[2019-02-24] MEDS ORDERED: CARV6.2579 PO (13:52)
[2019-02-24] MEDS ORDERED: FURO40TA4 PO (13:52)
--- NOTE | 2019-02-24 13:54 | PDOCDIS ---
Discharge Instructions CONDITION [id number] Patient Condition: [id number] Good HOME CARE INSTRUCTIONS: [id number] Diet Instructions: [id number] Reduced Sodium ACTIVITY: [id number] Activity Restrictions: [id number] No Restrictions FOLLOW UP/APPOINTMENTS Follow-up Plan FOLLOW UP WITH YOUR PCP AND LEAD LOADER IN 1-2 WEEKS TRISTA SCHMIDT February 24, 2019 13:54
[2019-02-24] MEDS ORDERED: FUROSEMIDE 20 MG INJ IV ONE (14:00)
--- NOTE | 2019-02-24 14:25 | DS ---
Date/Time of Note Date/Time of Note DATE: 02/24/19 TIME: 14:22 Discharge Summary Admission/Discharge Info Admit Date/Time February 23, 2019 at 16:47 Discharge Date/Time February 24, 2019 Discharge Diagnosis 1. Acute respiratory distress secondary to decompensated diastolic heart failure-resolved Resolved with Lasix IV Echo continues to show preserved EF Patient is compliant with home Lasix and low-salt diet Cardiology recommendation is to DC home with Lasix 40 mg tabs to take 2 tabs for the next several days and then transition to daily Change beta-frankie to Coreg per cardiology recommendations Cardiology consultation appreciated 2. Coronary disease status post recent CABG Continue cardiac meds 3. Diabetes Continue home regimen 4. Hypertension Continue home meds Patient Condition: Good Hospital Course Patient is a 63-year-old male with a history of coronary disease status post recent CABG, diabetes, hypertension as well as diastolic heart failure. Patient presents with decompensated diastolic heart failure with volume overload, shortness of breath volume overload resolved Lasix IV. Patient was seen by cardiology repeat echo continue to show preserved EF. Recommendation was to change Lasix regimen to 40 mg p.o. twice daily for the next several days and then 40 mg daily thereafter. Patient was stable for DC, on the day of discharge patient's vitals, labs and physical exam are stable. Patient no longer requires supplemental O2. Home Meds Active Scripts Furosemide* (Furosemide*) 40 Mg Tablet, 40 MG PO DAILY, #60 TAB Prov:TRISTA SCHMIDT 02/24/19 Carvedilol* (Carvedilol*) 6.25 Mg Tablet, 6.25 MG PO BID, #60 TAB 1 Refill Prov:TRISTA SCHMIDT 02/24/19 Insulin Glargine* (Lantus*) 100 Unit/Ml Soln, 15 UNIT SC QHS for 30 Days, #1 VIAL Prov:AIDAN PERKINS MD 02/14/19 Atorvastatin* (Atorvastatin*) 40 Mg Tablet, 40 MG PO QHS for 30 Days, #30 TAB 1 Refill Prov:AIDAN PERKINS MD 02/14/19 Lisinopril* (Lisinopril*) 10 Mg Tablet, 10 MG PO DAILY for 30 Days, #30 TAB 1 Refill Prov:AIDAN PERKINS MD 02/14/19 Reported Medications Aspirin* (Aspirin* EC) 81 Mg Tablet., 81 MG PO DAILY, TAB 02/23/19 Tamsulosin Hcl* (Tamsulosin Hcl*) 0.4 Mg Cap.er.24h, 0.4 MG PO HS, CAP 02/02/19 Glipizide* (Glipizide*) 10 Mg Tablet, 10 MG PO DAILY, TAB 02/02/19 Metformin* (Glucophage*) 1,000 Mg Tablet, 1000 MG PO DAILY, #60 TAB 02/02/19 Discontinued Scripts Furosemide* (Furosemide*) 40 Mg Tablet, 20 MG PO DAILY for 30 Days, #30 TAB 1 Refill Prov:AIDAN PERKINS MD 02/14/19 Metoprolol Tartrate* (Lopressor*) 25 Mg Tab, 25 MG PO BID for 30 Days, #60 TAB 1 Refill Prov:AIDAN PERKINS MD 02/14/19 Aspirin (Aspirin Lite-Coat) 325 Mg Tablet, 81 MG PO DAILY for 30 Days, #30 TAB 1 Refill Prov:AIDAN PERKINS MD 02/14/19 Follow-up Plan FOLLOW UP WITH YOUR PCP AND LAB ANALYST IN 1-2 WEEKS Primary Care Provider Care Physician No Primary Time spent on discharge: > 30 minutes TRISTA SCHMIDT February 24, 2019 14:25
== END 2019-02-24 15:52 | disposition home or self-care (01) | DRG 293 ==
LOC: E/R 14:25 → 6WM 16:47
PROVIDERS: ADMIT Internal Medicine; ATTEND Internal Medicine
DX: I11.0 Hypertensive heart disease with heart failure (principal); I50.33 Acute on chronic diastolic (congestive) heart failure; Z95.1 Presence of aortocoronary bypass graft; E11.9 Type 2 diabetes mellitus without complications; E78.5 Hyperlipidemia, unspecified; R06.03 Acute respiratory distress
CPT/HCPCS: 36415; 71045; 80048; 82550; 82553; 82962; 83735; 83880; 84100; 84484; 85025; 87081; 93005; 93306; 96374; J1815; J1940; J3475